=== PATIENT | male | born 1945 | race Caucasian/White ===

== ENCOUNTER 2023-10-08 12:12 | Outpatient (CLI) | payer MEDICARE, BC, SELFPAY ==
--- OUTSIDE RECORDS SUMMARY | 2023-10-08 12:22 | XMS_ITS | Encounter Summary ---
Author Name [place] Address [address] [place] [address] Care Team Providers Care Shoe Designer Name Role Phone JI DUMONT Primary Care Provider Unavailabl e Insurance Providers: All historical and current Section Date Range: From patient's date of to the date document was created. This section includes the names of all active insurance providers for the patient. Insurance Provider Type of Coverage Plan Name Start of Policy Coverage End of Policy Coverage Group Number Member ID Insurance Provider's Telephone Number Policy Ochoa's Name Patient's Relationship to Policy Ochoa [facility] ([facility]) MEDICARE ADVANTAGE [facility] ([facility]) Mar 12, 2015 [id number] BARRY GONZALEZ [facility] ([facility]) MEDICARE ADVANTAGE [facility] Mar 12, 2015 [id number] [phone] BARRY GONZALEZ PATIENT [facility] ([facility]) MEDICARE ADVANTAGE [facility] ([facility]) Mar 12, 2015 [id number] [phone] JUSTYNAANGELABARRY PATIENT BLUE CROSS [facility] RETIREE PLATI NUM BLUE COMPL E Mar 12, 2016 [id number] LISABARRY PATIENT [facility] ([facility]) MEDICARE ADVANTAGE [facility] (WNR) Mar 12, 2015 [id number] BARRY GONZALEZ PATIENT MEDICARE (WNR) MEDICARE (M) PART A Mar 12, 2000 PART A [id number] BARRY GONZALEZ PATIENT Selected Encounter This section includes the information on record at [place] for the Encounter. Date/Time Encounter Type Encounter Description Reason Provider Source Apr 13, 2023 12:15 PM Outpatient Encounter ADMIN PAT ACTIVTIES (MASNONCT) MARIANGEL ARNDT IHLizzy Encounter Template Text not used by [place] Plan of Treatment: Future Appointments (+ 6 months) and Future Tests (+/- 45 days) The Plan of Treatment section includes future care activities for the patient [facility] [place] [facility] This section includes future appointments and future orders which are active, pending or scheduled. Future Appointments This section includes appointments that were scheduled to occur 6 months from the date of the Encounter, up to a maximum of 20 appointments. The data comes from all [place] treatment facilities. Appointment Date/Time Appointment Type Appointme nt Facility Name May 07, 2023 09:00 AM AMBULATORY - MEDICINE [facility] May 07, 2023 12:00 PM [facility] Jun 21, 2023 10:00 AM AMBULATORY - NONE [facility] Aug 20, 2023 09:30 AM AMBULATORY - MEDICINE [facility] Aug 21, 2023 11:00 AM AMBULATORY - NONE [facility] Aug 27, 2023 10:00 AM AMBULATORY - NONE [facility] Aug 27, 2023 11:00 AM AMBULATORY - REHAB MEDICIN E [facility] Aug 28, 2023 02:10 PM AMBULATORY - NONE [facility] Social History: Smoking Status (Most current) and Tobacco Use (All prior to encounter date) This section includes the most current, and the historical, smoking and tobacco- related health factors from the [place] facility where the Encounter took place. Current Smoking Status This section includes the most current smoking, or tobacco-related health factor, from the [place] facility where the Encounter took place. Date/Time Current Smoking Status Victor Hugo dean Jan 17, 2023 10:45 AM VA-TOBACCO FORMER USER [facility] Tobacco Use History This section includes a history of the smoking, or tobacco-related health factors, that were collected on or before the date of the Encounter. The data comes from the [place] facility where the Encounter took place. Date/Time Smoking Status/Tobacco Use Comment F acility Jan 17, 2023 10:45 AM VA-TOBACCO QUIT 15 YRS OR MORE [facility] Feb 01, 2022 10:15 AM VA-TOBACCO FORMER USER [facility] Feb 01, 2022 10:15 AM VA-TOBACCO QUIT 15 YRS OR MORE [facility] Sep 28, 2020 03:20 PM VA-TOBACCO FORMER USER [facility] Sep 28, 2020 03:20 PM VA-TOBACCO QUIT 15 YRS OR MORE [facility] Dec 25, 2019 10:30 AM VA-TOBACCO FORMER USER [facility] Dec 25, 2019 10:30 AM VA-TOBACCO QUIT 15 YRS OR MORE [facility] Feb 21, 2018 11:12 AM VA-TOBACCO FORMER USER [facility] Feb 21, 2018 11:12 AM VA-TOBACCO QUIT 15 YRS OR MORE [facility] August 08, 2017 11:28 AM FORMER TOBACCO USER 7Y OR GREATE R [facility] Aug 22, 2016 07:47 AM FORMER TOBACCO USER 7Y OR GREATE R [facility] Aug 23, 2015 09:50 AM FORMER TOBACCO USER 7Y OR GREATE R [facility] Aug 13, 2014 08:34 AM LIFETIME NON-TOBACCO USER [facility] Aug 11, 2013 07:48 AM LIFETIME NON-TOBACCO USER [facility] Advance Directives: All historical and current Section Date Range: From patient's date of to the date document was created. This section includes ALL of a patient's completed or amended [place] Advance and Rescinded Directives. The entries below indicate that a directive exists for the patient, but an actual copy is not included with this document. The data comes from all [facility]. Date Advance Directives Provider Source Aug 13, 2014 ADVANCE DIRECTIVE VANDANA MAURICE [facility] Aug 13, 2014 ADVANCE DIRECTIVE DISCUSSION VANDANA MAURICE [facility] May 06, 2007 ADVANCE DIRECTIVE MAYITO PIERRE [facility] Encounter Notes: All associated encounter notes This section contains the clinical notes associated to the Encounter. Date/Time Encounter Note(s) Provider Source Apr 13, 2023 12:15 PM KINDER TEACHER REFER RAL NOTE: LOCAL TITLE: TRAVELING COORDINATOR NOTE STANDARD TITLE: KINDER TEACHER REFERRAL NOTE DATE OF NOTE: APR 13, 2023@12:15 ENTRY DATE: APR 13, 2023@12:15:32 AUTHOR: MARIANGEL ARNDT EXP COSIGNER: URGENCY: STATUS: COMPLETED Traveling Vet consult activity for: incoming/outgoing consult care coordination, communication &/or chart review. /valarie/ SERGE GARCIA TRAVELING COORDINATOR Signed: 04/13/2023 12:15 MARIANGEL ARNDT [facility]
--- OUTSIDE RECORDS SUMMARY | 2023-10-08 12:22 | XMS_ITS | Encounter Summary ---
Author Name [place] Address [address] [place] [address] Care Team Providers Care Automotive Leasing Sales Representative Name Role Phone JI DUMONT Primary Care [...] Ochoa's Name Patient's Relationship to Policy Ochoa [facility] (R) MEDICARE [facility] ([facility]) Mar 12, 2015 [id number] [phone] BARRY GONZALEZ [facility] ([facility]) MEDICARE ADVANTAGE [facility] Mar 12, 2015 [id number] [phone] BARRY GONZALEZ [facility] (WNR) MEDICARE ADVANTAGE [facility] (WNR) Mar 12, 2015 [id number] [phone] JUSTYNAPAMELABARRY PATEL PATIENT [place] RETIREE PLATI NUM BLUE COMPL E Mar 12, 2016 [id number] LISABARRY BLUE SHIELD [facility] ([facility]) MEDICARE ADVANTAGE [facility] ([facility]) Mar 12, 2015 [id number] BARRY GONZALEZ PATIENT MEDICARE (WNR) MEDICARE (M) PART A Mar 12, 2000 PART A [id number] BARRY GONZALEZ PATIENT Selected Encounter This section includes the information on record at [place] for the Encounter. Date/Time Encounter Type Encounter Description Reason Pro vider Source Jan 25, 2023 12:26 PM Outpatient Encounter COMMUNITY CARE CONSULT IHE Encounter Template Text not used by [place] Plan of Treatment: Future Appointments (+ 6 months) and Future Tests (+/- 45 days) The Plan of Treatment section includes future care activities for the patient [facility] [place] [facility] This section includes future appointments and future orders which are active, pending or scheduled. Future Appointments This section includes appointments that were scheduled to occur 6 months from the date of the Encounter, up to a maximum of 20 appointments. The data comes from all [facility]. Appointment Date/Time Appointment Type Appointme nt Facility Name May 07, 2023 09:00 AM AMBULATORY - [facility]ICINE [facility] May 07, 2023 12:00 PM [facility] Jun 21, 2023 10:00 AM AMBULATORY - NONE [place] [facility] Active, Pending, and Scheduled Orders This section includes a listing of several types of active, pending, and scheduled orders, including clinic medications orders, diagnostic test orders, procedure orders and consult orders; where the start date of the order is 45 days before the date of the Encounter or 45 days after the date of theEncounter. The data comes from all [facility]. Test Date/Time Test Type Test Details Facility Name Feb 01, 2023 12:00 AM Laboratory - Chemi stry Order BASIC METABOLIC PANEL+MG PLASMA [facility] Feb 01, 2023 12:00 AM Laboratory - Chemi stry Order HEMOGLOBIN A1C BLOOD [facility] Feb 01, 2023 12:00 AM Laboratory - Chemi stry Order LIPID PANEL,NON-FASTING PLASMA [facility] Feb 01, 2023 12:00 AM Laboratory - Chemi stry Order CBC BLOOD [facility] Feb 01, 2023 12:00 AM Laboratory - Chemi stry Order BASIC METABOLIC PANEL+MG PLASMA [facility] Feb 01, 2023 12:00 AM Laboratory - Chemi stry Order AST/SGOT PLASMA SP ONCE [facility] Feb 01, 2023 12:00 AM Laboratory - Chemi stry Order ALT/SGPT PLASMA SP ONCE [facility] Feb 01, 2023 12:00 AM Laboratory - Chemi stry Order HEMOGLOBIN A1C BLOOD SP [facility] Feb 22, 2023 12:51 PM Consult Order COMMUNITY CARE-DENTAL GEN SERV Cons Library Consultant's Choice [facility] Lab Results: +/- 30 days of the encounter This section includes the Chemistry and Hematology Lab Results on record with [place] for the patient. Radiology Reports and Pathology Reports are provided separately, in subsequent sections. Lab Results This section contains the Chemistry/Hematology Results that were resulted 30 days before or 30 daysafter the date of the Encounter. Date/Time Source Result Type Result - Unit Interpretation Reference Range Comment Jan 17, 2023 09:35 AM [facility] HEMOGLOBIN A1C Specimen Type: BLOOD Comment: Values obtained from A1C measurements can vary. For typical A1C assays, a reported value of 7.0 could actually be between 6.7 and 7.3 if measured by a reference method. A reported value of 9.0 could actually be between 8.7 and 9.3. Ref: http://www.ngsp .org/CAPdata.as p Ordering Provider: JI DUMONT Report Released Date/Time: July 13, 2022 12:08 PM Reporting Lab: [facility] [id number] Performing Lab: [facility] [id number] HEMOGLOBIN A1C 6.7 H 4.0-6.0 Jan 17, 2023 09:35 AM [facility] PSA Specimen Type: SERUM No comment entered. Ordering Provider: JI DUMONT Report Released Date/Time: Jan 03, 2023 11:09 AM Reporting Lab: [facility] [id number] Performing Lab: [facility] [id number] PSA 7.27 ng/mL H <4.00 Jan 17, 2023 09:35 AM [facility] BASIC METABOLIC PANEL+MG Specimen Type: PLASMA Comment: Elevated triglyceride result from a non-fasting specimen should be interpreted with caution. A fasting panel is recommended for accurate triglycerides when trigs are >200 from a non-fasting specimen. Ordering Provider: JI DUMONT Report Released Date/Time: July 13, 2022 12:08 PM Reporting Lab: [facility] [phone] Performing Lab: [facility] [id number] CREATININE 1.2 mg/dL 0.7-1.2 UREA NITROGEN 24 mg/dL 8-26 GLUCOSE 276 mg/dL H 70-100 SODIUM 141 mmol/L 136-145 POTASSIUM 4.7 mmol/L 3.5-5.1 CHLORIDE 106 mmol/L 98-107 CO2 25 mmol/L 22-29 CALCIUM 9.4 mg/dL 8.4-10.2 MAGNESIUM 1.7 mg/dL 1.6-2.6 ANION GAP 10 mmol/L 5-15 .CREAT EGFR(CKD-EPI) 62 >60 Jan 17, 2023 09:35 AM [facility] LIPID PANEL,NON-FASTING Specimen Type: PLASMA Comment: Elevated triglyceride result from a non-fasting specimen should be interpreted with caution. A fasting panel is recommended for accurate triglycerides when trigs are >200 from a non-fasting specimen. Ordering Provider: JI DUMONT Report Released Date/Time: July 13, 2022 12:08 PM Reporting Lab: [facility] [id number] Performing Lab: [facility] [phone] CHOLESTEROL 133 mg/dL <199 .HDL 34 mg/dL L >40 LDL CALCULATION 57 mg/dL <99 VLDL CALCULATION 42 mg/dL H <29 NON HDL CHOLESTEROL 99 mg/dL <129 TRIG(NON FASTING) 210 mg/dL H <149 Social History: Smoking Status (Most current) and Tobacco Use (All prior to encounter date) This section includes the most current, and the historical, smoking and tobacco- related health factors from the [place] facility where the Encounter took place. Current Smoking Status This section includes the most current smoking, or tobacco-related health factor, from the [place] facility where the Encounter took place. Date/Time Current Smoking Status Comment Nadine ity Jan 17, 2023 10:45 AM VA-TOBACCO FORMER USER [facility] Tobacco Use History This section includes a history of the smoking, or tobacco-related health factors, that were collected on or before the date of the Encounter. The data comes from the [place] facility where the Encounter took place. Date/Time Smoking Status/Tobacco Use Comment F acility Jan 17, 2023 10:45 AM VA-TOBACCO QUIT 15 YRS OR MORE [facility] Feb 01, 2022 10:15 AM VA-TOBACCO FORMER USER [facility] Feb 01, 2022 10:15 AM VA-TOBACCO QUIT 15 YRS OR MORE [facility] Sep 28, 2020 03:20 PM VA-TOBACCO FORMER USER [facility] Sep 28, 2020 03:20 PM VA-TOBACCO QUIT 15 YRS OR MORE [facility] Dec 25, 2019 10:30 AM VA-TOBACCO FORMER USER [facility] Dec 25, 2019 10:30 AM VA-TOBACCO QUIT 15 YRS OR MORE [facility] Feb 21, 2018 11:12 AM VA-TOBACCO FORMER USER [facility] Feb 21, 2018 11:12 AM VA-TOBACCO QUIT 15 YRS OR MORE [facility] August 08, 2017 11:28 AM FORMER TOBACCO USER 7Y OR GREATE R [facility] Aug 22, 2016 07:47 AM FORMER TOBACCO USER 7Y OR GREATE R [facility] Aug 23, 2015 09:50 AM FORMER TOBACCO USER 7Y OR GREATE R [facility] Aug 13, 2014 08:34 AM LIFETIME NON-TOBACCO USER [facility] Aug 11, 2013 07:48 AM LIFETIME NON-TOBACCO USER [facility] Advance Directives: All historical and current Section Date Range: From patient's date of to the date document was created. This section includes ALL of a patient's completed or amended [place] Advance and Rescinded Directives. The entries below indicate that a directive exists for the patient, but an actual copy is not included with this document. The data comes from all [place] facilities. Date Advance Directives Provider Source Aug 13, 2014 ADVANCE DIRECTIVE VANDANA MAURICE [facility] Aug 13, 2014 ADVANCE DIRECTIVE DISCUSSION VANDANA MAURICE [facility] May 06, 2007 ADVANCE DIRECTIVE MAYTIO PIERRE [facility] Encounter Notes: All associated encounter notes This section contains the clinical notes associated to the Encounter. Date/Time Encounter Note(s) Provider Source Jan 25, 2023 03:00 PM ADDENDUM: LOCAL TITLE: Addendum STANDARD TITLE: ADDENDUM DATE OF NOTE: JAN 25, 2023@15:00:26 ENTRY DATE: JAN 25, 2023@15:00:27 AUTHOR: MYRA MARQUEZ COSIGNER: URGENCY: STATUS: COMPLETED Received the above prescription without records in [facility]. Short fill medications are not co-managed. Forwarding the pact team to reach out to to discuss medication. Defer to pact team to obtain records if needed. Prescriptions are for Neomycin 500mg tablet, take 1 tablet 2 times daily for 14 days and Rifaximin 550mg tablet, take 1 tablet, 3 times a day for 14 days. Prescriptions did come with records. These are scanned and attached to this note. /valarie/ MYRA MARQUEZ LPN [employer]-Cafe Cook Signed: 01/25/2023 15:02 Receipt Acknowledged By: 01/25/2023 15:15 /es/ SHEYLA MOHAMUD RN REGISTERED NURSE 01/26/2023 10:29 /es/ JI DUMONT MD PHYSICIAN, [facility] --- Original Document --- 01/25/23 PHARMACY NON VA CARE MEDICATIONS: The [facility] Out[facility] RECEIVED electronic prescription(s) faxed from a NON-VA Provider: Regarding Patient: LISABARRY JR Date of : Nov Regarding PRESCRIPTION(s) written on Jan for: Medication(s): Neomycin 500mg tablet Rifaximin 550mg tablet The Non-VA provider is not authorized to write prescription(s) through the [facility] pharmacy. The Prescription request has been redirected via FAX to [facility]. /valarie/ PATRICE MORALES Ornamental Metal Worker Signed: 01/25/2023 12:27 MYRA MARQUEZ [facility] Jan 25, 2023 12:26 PM PHARMACY NOTE: LOCAL TITLE: PHARMACY NON VA CARE MEDICATIONS STANDARD TITLE: PHARMACY NOTE DATE OF NOTE: JAN 25, 2023@12:26 ENTRY DATE: JAN 25, 2023@12:26:43 AUTHOR: PATRICE MORALES EXP COSIGNER: URGENCY: STATUS: COMPLETED PHARMACY NON VA CARE MEDICATIONS Has ADDENDA The [facility] Out[facility] RECEIVED electronic prescription(s) faxed from a NON-VA Provider: Regarding Patient: BARRY GONZALEZ JR Date of : Nov Regarding PRESCRIPTION(s) written on Jan for: Medication(s): Neomycin 500mg tablet Rifaximin 550mg tablet The Non-VA provider is not authorized to write prescription(s) through the [facility] pharmacy. The Prescription request has been redirected via FAX to [facility]. /valarie/ PATRICE MORALES Ornamental Metal Worker Signed: 01/25/2023 12:27 01/25/2023 ADDENDUM STATUS: COMPLETED Received the above prescription without records in [facility]. Short fill medications are not co-managed. Forwarding the pact team to reach out to to discuss medication. Defer to pact team to obtain records if needed. Prescriptions are for Neomycin 500mg tablet, take 1 tablet 2 times daily for 14 days and Rifaximin 550mg tablet, take 1 tablet, 3 times a day for 14 days. Prescriptions did come with records. These are scanned and attached to this note. /valarie/ MYRA MARQUEZ LPN [employer] Cook Signed: 01/25/2023 15:02 Receipt Acknowledged By: 01/25/2023 15:15 /es/ SHEYLA MOHAMUD RN REGISTERED NURSE 01/26/2023 10:29 /valarie/ JI DUMONT MD PHYSICIAN, [facility] 01/26/2023 ADDENDUM STATUS: COMPLETED Ordered for mailout -- rifaximin is NF so entered pharm prior auth. /valarie/ JI DUMONT MD PHYSICIAN, [facility] Signed: 01/26/2023 10:38 PATRICE MORALES [facility]
--- OUTSIDE RECORDS SUMMARY | 2023-10-08 12:22 | XMS_ITS | Encounter Summary ---
Author Name [facility] [place] [facility] [place] [facility] [facility] [place] Address [address] [place] [address] Care Team Providers Care Lien Searcher Name Role Phone JI DUMONT Primary Care [...] Ochoa's Name Patient's Relationship to Policy Ochoa [facility] [place]) MEDICARE ADVANTAGE [facility] ([facility]) Mar 12, 2015 [id number] [phone] BARRY GONZALEZ [facility] ([facility]) MEDICARE ADVANTAGE [facility] Mar 12, 2015 [id number] [phone] BARRY GONZALEZ PATIENT [facility] ([facility]) MEDICARE ADVANTAGE [facility] ([facility]) Mar 12, 2015 [id number] [phone] JUSTYNAANGELABARRY PATIENT [facility] RETIREE PLATI NUM BLUE COMPL E Mar 12, 2016 [id number] [phone] LISABARRY PATIENT [facility] ([facility]) MEDICARE ADVANTAGE [facility] (WNR) Mar 12, 2015 [id number] BARRY GONZALEZ PATIENT MEDICARE ([place]) [place] ([place]) PART A Mar 12, 2000 PART A [id number] BARRY GONZALEZ PATIENT Selected Encounter This section includes the information on record at [place] for the Encounter. Date/Time Encounter Type Encounter Description Reason Provider Source Apr 17, 2023 09:12 AM Outpatient Encounter ADMIN PAT ACTIVTIES (MASNONCT) MARIANGEL ARNDT IHLizzy Encounter Template Text not used by [place] Plan of Treatment: Future Appointments (+ 6 months) and Future Tests (+/- 45 days) The Plan of Treatment section includes future care activities [facility] the [facility] [place] [facility] This section includes future appointments and future orders which are active, pending or scheduled. Future Appointments This section includes appointments that were scheduled to occur 6 months from the date of the Encounter, up to a maximum of 20 appointments. The data comes from all [place] treatment facilities. Appointment Date/Time Appointment Type Appointme nt Facility Name May 07, 2023 09:00 AM AMBULATORY - MEDICINE [facility] May 07, 2023 12:00 PM AMBULATORY - SURGERY [facility] Jun 21, 2023 10:00 AM AMBULATORY - NONE [facility] Aug 20, 2023 09:30 AM AMBULATORY - MEDICINE [facility] Aug 21, 2023 11:00 AM AMBULATORY - NONE [facility] Aug 27, 2023 10:00 AM AMBULATORY - NONE [facility] Aug 27, 2023 11:00 AM AMBULATORY - REHAB MEDICIN E [facility] Aug 28, 2023 02:10 PM AMBULATORY - NONE [facility] Social History: Smoking Status (Most current) and Tobacco Use (All prior to encounter date) This section includes the most current, and the historical, smoking and tobacco- related health factors from the [place] facility where the Encounter took place. Current Smoking Status This section includes the most current smoking, or tobacco-related health factor, from the [place] facility where the Encounter took place. Date/Time Current Smoking Status Victor Hugo dean Jan 17, 2023 10:45 AM VA-TOBACCO FORMER USER [facility] Tobacco Use History This section includes a history of the smoking, or tobacco-related health factors, that were collected on or before the date of the Encounter. The data comes from the [place] facility where the Encounter took place. Date/Time Smoking Status/Tobacco Use Comment F acility Jan 17, 2023 10:45 AM VA-TOBACCO QUIT 15 YRS OR MORE [facility] Feb 01, 2022 10:15 AM VA-TOBACCO FORMER USER [facility] Feb 01, 2022 10:15 AM VA-TOBACCO QUIT 15 YRS OR MORE [facility] Sep 28, 2020 03:20 PM VA-TOBACCO FORMER USER [facility] Sep 28, 2020 03:20 PM VA-TOBACCO QUIT 15 YRS OR MORE [facility] Dec 25, 2019 10:30 AM VA-TOBACCO FORMER USER [facility] Dec 25, 2019 10:30 AM VA-TOBACCO QUIT 15 YRS OR MORE [facility] Feb 21, 2018 11:12 AM VA-TOBACCO FORMER USER [facility] Feb 21, 2018 11:12 AM VA-TOBACCO QUIT 15 YRS OR MORE [facility] August 08, 2017 11:28 AM FORMER TOBACCO USER 7Y OR GREATE R [facility] Aug 22, 2016 07:47 AM FORMER TOBACCO USER 7Y OR GREATE R [facility] Aug 23, 2015 09:50 AM FORMER TOBACCO USER 7Y OR GREATE R [facility] Aug 13, 2014 08:34 AM LIFETIME NON-TOBACCO USER [facility] Aug 11, 2013 07:48 AM LIFETIME NON-TOBACCO USER [facility] Advance Directives: All historical and current Section Date Range: From patient's date of to the date document was created. This section includes ALL of a patient's completed or amended [place] Advance and Rescinded Directives. The entries below indicate that a directive exists for the patient, but an actual copy is not included with this document. The data comes from all [facility]. Date Advance Directives Provider Source Aug 13, 2014 ADVANCE DIRECTIVE VANDANA MAURICE [facility] Aug 13, 2014 ADVANCE DIRECTIVE DISCUSSION VANDANA MAURICE [facility] May 06, 2007 ADVANCE DIRECTIVE MAYITO PIERRE [facility] Encounter Notes: All associated encounter notes This section contains the clinical notes associated to the Encounter. Date/Time Encounter Note(s) Provider Source Apr 17, 2023 09:12 AM CRYSTALIZER TENDER REFER RAL NOTE: LOCAL TITLE: TRAVELING COORDINATOR NOTE STANDARD TITLE: CRYSTALIZER TENDER REFERRAL NOTE DATE OF NOTE: APR 17, 2023@09:12 ENTRY DATE: APR 17, 2023@09:12:44 AUTHOR: MARIANGEL ARNDT EXP COSIGNER: URGENCY: STATUS: COMPLETED Traveling Vet consult activity for: incoming/outgoing consult care coordination, communication &/or chart review. /valarie/ SERGE GARCIA TRAVELING COORDINATOR Signed: 04/17/2023 09:12 MARIANGEL ARNDT [facility]
--- OUTSIDE RECORDS SUMMARY | 2023-10-08 12:22 | XMS_ITS | Continuity of Care Document ---
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 It does not include entries that were removed or entered in error. Problem Status Onset Date Problem Type Date of Resolution Comments Source Exposure to potentially hazardous substance ([facility] [id number]) Active 05/17/19 24 Condition May 17, 2023 Entered By: VETO DEL VALLE [facility]: [facility] [place] Documentation Initiative [facility] Adenomatous polyp of colon Active Condition Jan 17, 2023 Entered By: JI DUMONT Comment: 4 mm TA in transverse colon [facility] 02/17/2020; repeat due 02/2025 [facility] Allergic Rhinitis ([facility] [id number]) Active Condition 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 2026 [facility] Benign essential hypertension (SNOMED CT 2990003) Active Condition [facility] CAD - Coronary Artery Disease (SCT 95590321) Active Condition Jan 16, 2023 Entered By: JI DUMONT Comment: s/p KYMBERLY to LCX 2004, LAD 2012Nov 2022 Entered By: JI DUMONT Comment: Follows at [facility] cardiologyNov 2022 Entered By: JI DUMONT Comment: ezetimibe 10 mg daily and niacin due to elevated CK w/ statins [facility] Cervical spinal stenosis Active Condition Jan 16, 2023 Entered By: JI DUMONT Comment: Has had neurosurgery eval suggesting surgy but this was not pursued by the patient [facility] CKD stage 3 (SNOMED CT 327281194) Active Condition [facility] ([facility]) Diabetes Mellitus Type 2 (SCT 98027048) Active Condition [facility] Diabetic neuropathy Active Condition [facility] Dyspnea Active Condition Jan 16 Entered By: JI DUMONT Comment: has been referred to pulmonary at [facility], PFT 12/2021 showed reduced diffusing capacity and normal spirometry [facility] H/O: pulmonary embolus Active Condition Jan 16, 2023 Entered By: JI DUMONT Comment: on rivaroxaban 20 mg nightlyJan 16, 2023 Entered By: JI DUMONT Comment: unprovoked 2012 [facility] Hyperlipidemia (SNOMED CT 70681988) Active Condition [facility] Hypomagnesemia Active Condition [facility] Irritable bowel syndrome Active Condition Jan 17, 2023 Entered By: JI DUMONT Comment: Multiple EGDs for [facility] w/o cause for chronic abdominal pain (Celiacs)Jan 17, 2023 Entered By: JI DUMONT Comment: H. pylori negative via stool Ag testing [facility] 01/2023Nov 2022 Entered By: JI DUMONT Comment: CT a/p 2022 without explanationNov 2022 Entered By: JI DUMONT Comment: Abdominal pain imrpoves w/ defecation, suspect IBSNov 2022 Entered By: JI DUMONT Comment: Trial Psyllium and referral to nutrition for FODMAP 01/2023Feb 2023 Entered By: JI DUMONT Comment: SIBO Dx [facility] 2022, Rx'ed rifaximen [facility] Long-term current use of anticoagulant (SNOMED CT 788585179) Active Condition [facility] Lumbar spinal stenosis Active Condition Jan 16, 2023 Entered By: JI DUMONT Comment: s/p whizotomy L3-S1 c/b bilateral foot dropNov 2022 Entered By: JI DUMONT Comment: Uses AFOs, which he obtained from the [facility] 2022 Entered By: JI DUMONT Comment: Follows at [facility] where he has had L4-S1 branch blocks 03/2018, RFA L4-S1 05/2018, as well as trigger point injections 04/2021 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 Prostate Cancer (SCT 341954444) Active Condition May 04, 2023 Entered By: JI DUMONT Comment: Dx 2023, [place] 4+3Feb 2023 Entered By: JI DUMONT Comment: underwent TURP 04/20/2023 for obstructive voiding symptoms [facility] Restless Legs Syndrome (SCT 90581804) Active Condition [facility] Small bowel bacterial overgrowth syndrome Active Condition May 04, 2023 Entered By: JI DUMONT Comment: Dx [facility] 2022, on rifaximen [facility] Venous insufficiency of leg Active Condition Jan 16, 2023 Entered By: JI DUMONT Comment: Uses compression stockings [facility] Ventricular premature complex Active Condition Jan 16 Entered By: JI DUMONT Comment: Symptomatic, follows w/ [facility] cardiology, on BB [facility] Vertigo Active Condition Jan 16 Entered By: JI DUMONT Comment: s/p [facility] PT 08/2022 [facility] Diagnosis: ICD-10-CM E11.9 Type 2 diabetes mellitus without complications Active Diagnosis [facility] Diagnosis: ICD-10-CM C61 Malignant neoplasm of prostate Active Diagnosis [facility] Diagnosis: ICD-10-CM A04.9 Bacterial intestinal infection, unspecified Active Diagnosis [facility] Diagnosis: ICD-10-CM K58.9 Irritable bowel syndrome without diarrhea Active Diagnosis [facility] Diagnosis: ICD-10-CM H81.12 Benign paroxysmal vertigo, left ear [facility] Diagnosis: ICD-10-CM H81.399 Other peripheral vertigo, unspecified ear Active Diagnosis [facility] Diagnosis: ICD-10-CM Z13.6 Encounter for screening for cardiovascular disorders Active Diagnosis [facility] Diagnosis: ICD-10-CM M47.892 Other spondylosis, cervical region Active Diagnosis [facility] Diagnosis: ICD-10-CM Z71.9 Counseling, unspecified Active Diagnosis [facility] Diagnosis: ICD-10-CM Z01.20 Encounter for dental exam and cleaning w/o abnormal findings Active Diagnosis [facility] Diagnosis: ICD-10-CM Z79.01 long-term (current) use of anticoagulants Active Diagnosis [facility] Medications Combined list of outpatient medications from Department of Defense and Veterans Affairs facilities.Medications provided include 1) outpatient medications from the last 15 months, and 2) patient-reported medications. Medication Details Route Status Patient Instructions Prescription Expires Prescription Number Last Dispense Date Ordering Provider Order Date Order Qty Source ACETAMINOPH EN 500MG TAB ACETAMIN OPHEN 500MG TAB Active TAKE TWO TABLETS BY MOUTH EVERY 8 HOURS NEEDED FOR PAIN -NOT TO EXCEED 4000MG IN 24 HOURS FROM ALL SOURCES Jan 17, 2023 200 Jan 18, 2024 [id number] Oct 09, 2023 JI DUMONT [facility] ORAL ACTIVE 01/18/2024 [id number] JI DUMONT [address] [facility] ACETAMINOPH EN 500MG TAB ACETAMIN OPHEN 500MG TAB Disconti nued TAKE TWO TABLETS BY MOUTH EVERY 8 HOURS NEEDED FOR PAIN -NOT TO EXCEED 4000MG IN 24 HOURS FROM ALL SOURCES Apr 28, 2022 200 Apr 29, 2023 [id number] Jan 04, 2023 JI DUMONT [facility] ORAL DISCONT INUED 04/29/2023 [id number] JI DUMONT [address] [facility] ALBUTEROL 90MCG/ACTUA T (CFC-F) INHL,ORAL,8 .5GM DOSE COUNTER ALBUTERO L 90MCG/AC TUAT (CFC-F) INHL,ORA L,8.5GM DOSE COUNTER Active INHALE 2 PUFFS BY INHALATI ON FOUR TIMES A DAY FOR SHORTNES S OF BREATH *SHAKE WELL* (FOR IMMEDIAT E RELIEF) Jun 22, 2023 2 Jun 22, 2024 [id number] Sep 14, 2023 JI DUMONT [facility] RESPIR ATORY (INHAL ATION) ACTIVE 06/22/2024 [id number] JI DUMONT [address] [facility] ALBUTEROL 90MCG/ACTUA T (CFC-F) INHL,ORAL,8 .5GM DOSE COUNTER ALBUTERO L 90MCG/AC TUAT (CFC-F) INHL,ORA L,8.5GM DOSE COUNTER Disconti nued INHALE 2 PUFFS BY INHALATI ON FOUR TIMES A DAY FOR SHORTNES S OF BREATH *SHAKE WELL* (FOR IMMEDIAT E RELIEF) Jan 17, 2023 2 Jan 18, 2024 [id number] A Jun 11, 2023 [facility] RESPIR ATORY (INHAL ATION) DISCONT INUED 01/18/2024 [id number] JI DUMONT 2022 2 [facility] ALBUTEROL 90MCG/ACTUA T (CFC-F) INHL,ORAL,8 .5GM DOSE COUNTER ALBUTERO L 90MCG/AC TUAT (CFC-F) INHL,ORA L,8.5GM DOSE COUNTER Disconti nued INHALE 2 PUFFS BY INHALATI ON FOUR TIMES A DAY FOR SHORTNES S OF BREATH *SHAKE WELL* (FOR IMMEDIAT E RELIEF) July 24, 2022 2 July 25, 2023 [id number] Dec 12, 2022 [facility] RESPIR ATORY (INHAL ATION) DISCONT INUED 07/25/2023 [id number] JI DUMONT 2022 2 [facility] CEFUROXIME AXETIL 500MG TAB CEFUROXI ME AXETIL 500MG TAB TAKE ONE TABLET BY MOUTH TWICE A DAY , TAKE WITH FOOD UTI May 08, 2023 14 Jun 07, 2023 [id number] May 08, 2023 [facility] 06/07/2023 [id number] JI DUMONT 2023 14 [facility] CITALOPRAM HYDROBROMID E 20MG TAB CITALOPR AM HYDROBRO MIDE 20MG TAB Active TAKE ONE TABLET BY MOUTH EVERY DAY FOR DEPRESSI ON (NOTE NEW REGIMEN) FOR DEPRESSI ON August 08, 2023 90 July 18, 2024 [id number] Oct 07, 2023 [facility] 07/18/2024 [id number] JI DUMONT 2023 90 [place] [facility] CITALOPRAM HYDROBROMID E 20MG TAB CITALOPR AM HYDROBRO MIDE 20MG TAB Disconti nued TAKE ONE-HALF TABLET BY MOUTH EVERY DAY FOR 7 DAYS, THEN TAKE ONE TABLET EVERY DAY FOR DEPRESSI ON FOR DEPRESSI ON July 18, 2023 87 July 18, 2024 [id number] July 19, 2023 [facility] DISCONT INUED 07/18/2024 [id number] JI DUMONT 2023 87 [facility] CYCLOBENZAP RINE HCL 10MG TAB CYCLOBEN ZAPRINE HCL 10MG TAB Non-VA TAKE ONE-HALF TABLET BY MOUTH THREE TIMES A DAY NEEDED FOR MUSCLE SPASM Jun 12, 2022 [facility] Document ed by: Luanne BRAVO Document ed at: [facility] ORAL ACTIVE VERO BRAVO [address] [facility] DICLOFENAC NA 1% GEL,TOP DICLOFEN AC NA 1% GEL,TOP Active APPLY 2 GRAMS TO LEFT HAND THREE TIMES A DAY NEEDED FOR ARTHRITI S PAIN -USE DOSE CARD IN BOX TO MEASURE DOSE -MAX 32 GM PER DAY Jan 17, 2023 200 Jan 18, 2024 [id number] Oct 09, 2023 [facility] ACTIVE 01/18/2024 [id number] JI DUMONT 2022 200 [place] [facility] DICLOFENAC NA 1% GEL,TOP DICLOFEN AC NA 1% GEL,TOP Disconti nued APPLY 2 GRAMS TO LEFT HAND THREE TIMES A DAY NEEDED FOR ARTHRITI S PAIN -USE DOSE CARD IN BOX TO MEASURE DOSE -MAX 32 GM PER DAY Apr 28, 2022 200 Apr 29, 2023 [id number] Jan 04, 2023 [facility] DISCONT INUED 04/29/2023 [id number] JI DUMONT 2022 200 [facility] DIPHENHYDRA MINE HCL 25MG CAP DIPHENHY DRAMINE HCL 25MG CAP Disconti nued TAKE ONE CAPSULE BY MOUTH AT BEDTIME NEEDED FOR ALLERGIE S Feb 01, 2022 90 Feb 02, 2023 [id number] July 24, 2022 [facility] DISCONT INUED 02/02/2023 [id number] JI DUMONT 2021 90 [place] [facility] DOCUSATE NA 100MG CAP DOCUSATE NA 100MG CAP Active: Susp TAKE ONE CAPSULE BY MOUTH EVERY DAY FOR CONSTIPA TION FOR CONSTIPA TION Aug 20, 2023 100 Aug 20, 2024 [id number] Nov 08, 2023 [facility] SUSPEND ED 08/20/2024 [id number] JI DUMONT 2023 100 [place] [facility] EMPAGLIFLOZ IN 25MG TAB EMPAGLIF LOZIN 25MG TAB Active TAKE ONE TABLET BY MOUTH EVERY DAY FOR DIABETES FOR DIABETES Jan 17, 2023 90 Jan 18, 2024 [id number] Oct 04, 2023 [facility] 01/18/2024 [id number] JI DUMONT 2022 90 [place] [facility] EMPAGLIFLOZ IN 25MG TAB EMPAGLIF LOZIN 25MG TAB Disconti nued TAKE ONE TABLET BY MOUTH EVERY DAY FOR DIABETES FOR DIABETES Oct 18, 2022 90 Oct 19, 2023 [id number] Jan 11, 2023 [facility] OR[facility] DISCONT INUED 10/19/2023 [id number] JI DUMONT 2022 90 [place] [facility] EMPAGLIFLOZ IN 25MG TAB EMPAGLIF LOZIN 25MG TAB Disconti nued TAKE ONE TABLET BY MOUTH EVERY DAY FOR DIABETES FOR DIABETES Apr 14, 2022 90 Apr 15, 2023 [id number] Oct 01, 2022 [facility] OR[facility] DISCONT INUED 04/15/2023 [id number] JI DUMONT 2022 90 [place] [facility] EZETIMIBE 10MG TAB EZETIMIB E 10MG TAB Active TAKE ONE TABLET BY MOUTH AT BEDTIME Jan 17, 2023 90 Jan 18, 2024 [id number] A Oct 04, 2023 [facility]IVE 01/18/2024 [id number] JI DUMONT B 2022 90 [place] [facility] EZETIMIBE 10MG TAB EZETIMIB E 10MG TAB Disconti nued TAKE ONE TABLET BY MOUTH AT BEDTIME Oct 18, 2022 90 Oct 19, 2023 [id number] Jan 28, 2023 [facility] ORAL DISCONT INUED 10/19/2023 [id number] JI DUMONT 2022 90 [place] [facility] EZETIMIBE 10MG TAB EZETIMIB E 10MG TAB Disconti nued TAKE ONE TABLET BY MOUTH AT BEDTIME Feb 01, 2022 90 Feb 02, 2023 [id number] Aug 11, 2022 [facility] ORAL DISCONT INUED 02/02/2023 [id number] JI DUMONT 2021 90 [place] [facility] FAMOTIDINE 20MG TAB FAMOTIDI NE 20MG TAB Active TAKE ONE TABLET BY MOUTH TWICE A DAY TO DECREASE STOMACH ACID Jan 17, 2023 180 Jan 18, 2024 [id number] Oct 04, 2023 [facility] OR[facility] ACTIVE 01/18/2024 [id number] JI DUMONT B 2022 180 [place] [facility] FAMOTIDINE 20MG TAB FAMOTIDI NE 20MG TAB Disconti nued TAKE ONE TABLET BY MOUTH TWICE A DAY TO DECREASE STOMACH ACID Oct 18, 2022 180 Oct 19, 2023 [id number] Dec 31, 2022 [facility] ORAL DISCONT INUED 10/19/2023 [id number] JI DUMONT 10/22/ 2023 180 [place] [facility] FAMOTIDINE 20MG TAB FAMOTIDI NE 20MG TAB Disconti nued TAKE ONE TABLET BY MOUTH TWICE A DAY TO DECREASE STOMACH ACID Jan 24, 2022 180 Jan 25, 2023 [id number] Oct 12, 2022 [facility] ORAL DISCONT INUED 01/25/2023 [id number] JI DUMONT 2021 180 [place] [facility] FEXOFENADIN E HCL 180MG TAB FEXOFENA DINE HCL 180MG TAB Active TAKE ONE TABLET BY MOUTH EVERY DAY FOR ALLERGIC RHINITIS Jan 17, 2023 90 Jan 18, 2024 [id number] Oct 04, 2023 [facility] ACTIVE 01/18/2024 [id number] JI DUMONT 2022 90 [place] [facility] FEXOFENADIN E HCL 180MG TAB FEXOFENA DINE HCL 180MG TAB Disconti nued TAKE ONE TABLET BY MOUTH EVERY DAY FOR ALLERGIC RHINITIS Oct 18, 2022 90 Oct 19, 2023 [id number] Jan 28, 2023 [facility] DISCONT INUED 10/19/2023 [id number] JI DUMONT 2022 90 [place] [facility] FEXOFENADIN E HCL 180MG TAB FEXOFENA DINE HCL 180MG TAB Disconti nued TAKE ONE TABLET BY MOUTH EVERY DAY FOR ALLERGIC RHINITIS Feb 01, 2022 90 Feb 02, 2023 [id number] Aug 11, 2022 [facility] DISCONT INUED 02/02/2023 [id number] JI DUMONT 2021 90 [place] [facility] INSULIN,GLA RGINE-YFGN 100UNIT/ML INJ PEN,3ML INSULIN, GLARGINE -YFGN 100UNIT/ ML INJ PEN,3ML Disconti nued INJECT 23 UNITS UNDER THE SKIN EVERY DAY FOR DIABETES -REFRIGE RATE -DISCARD PEN 28 DAYS AFTER FIRST USE FOR DIABETES Aug 20, 2023 5 Aug 20, 2024 [id number] Oct 04, 2023 [facility] SUBCUT ANEOUS DISCONT INUED (EDIT) 08/20/2024 [id number] JI DUMONT 2023 5 [place] [facility] INSULIN,GLA RGINE-YFGN 100UNIT/ML INJ PEN,3ML INSULIN, GLARGINE -YFGN 100UNIT/ ML INJ PEN,3ML Disconti nued INJECT 20 UNITS UNDER THE SKIN EVERY DAY FOR DIABETES -REFRIGE RATE -DISCARD PEN 28 DAYS AFTER FIRST USE FOR DIABETES July 18, 2023 5 July 18, 2024 [id number] July 18, 2023 [facility] SUBCUT ANEOUS DISCONT INUED 07/18/2024 [id number] JI DUMONT 2023 5 [place] [facility] INSULIN,GLA RGINE-YFGN 100UNIT/ML INJ PEN,3ML INSULIN, GLARGINE -YFGN 100UNIT/ ML INJ PEN,3ML Disconti nued INJECT 30 UNITS UNDER THE SKIN EVERY DAY FOR DIABETES -REFRIGE RATE -DISCARD PEN 28 DAYS AFTER FIRST USE FOR DIABETES May 07, 2023 5 May 07, 2024 [id number] Jun 17, 2023 [facility] SUBCUT ANEOUS DISCONT INUED (EDIT) 05/07/2024 [id number] JI DUMONT 2023 5 [place] [facility] INSULIN,GLA RGINE-YFGN 100UNIT/ML INJ PEN,3ML INSULIN, GLARGINE -YFGN 100UNIT/ ML INJ PEN,3ML Disconti nued INJECT 24 UNITS UNDER THE SKIN EVERY DAY FOR DIABETES -REFRIGE RATE -DISCARD PEN 28 DAYS AFTER FIRST USE FOR DIABETES Jan 17, 2023 5 Jan 18, 2024 [id number] Jan 17, 2023 [facility] SUBCUT ANEOUS DISCONT INUED BY PROVIDE R 01/18/2024 [id number] JI DUMONT 2022 5 [place] [facility] INSULIN,GLA RGINE-YFGN 100UNIT/ML INJ PEN,3ML INSULIN, GLARGINE -YFGN 100UNIT/ ML INJ PEN,3ML Disconti nued INJECT 24 UNITS UNDER THE SKIN EVERY DAY FOR DIABETES -REFRIGE RATE -DISCARD PEN 28 DAYS AFTER FIRST USE FOR DIABETES July 13, 2022 5 July 14, 2023 [id number] Feb 01, 2023 [facility] SUBCUT ANEOUS DISCONT INUED 07/14/2023 [id number] JI DUMONT 2022 5 [place] [facility] KETOCONAZOL E 2% SHAMPOO KETOCONA ZOLE 2% SHAMPOO Active SHAMPOO SCALP DIRECTED THREE TIMES A WEEK Jan 17, 2023 120 Jan 18, 2024 [id number] B August 10, 2023 [facility] ACTIVE 01/18/2024 [id number] JI DUMONT 2022 120 [place] [facility] KETOCONAZOL E 2% SHAMPOO KETOCONA ZOLE 2% SHAMPOO Disconti nued SHAMPOO SCALP DIRECTED THREE TIMES A WEEK July 13, 2022 120 July 14, 2023 [id number] Dec 01, 2022 [facility] DISCONT INUED 07/14/2023 [id number] JI DUMONT 2022 120 [place] [facility] LIDOCAINE 5% OINT,TOP LIDOCAIN E 5% OINT,TOP Active APPLY MODERATE AMOUNT TOPICALL Y THREE TIMES A DAY FOR PAIN Jun 22, 2023 35 Jun 22, 2024 [id number] July 31, 2023 [facility] TOPICA L ACTIVE 06/22/2024 [id number] JI DUMONT 2023 35 [place] [facility] LIDOCAINE 5% OINT,TOP LIDOCAIN E 5% OINT,TOP Disconti nued APPLY MODERATE AMOUNT TOPICALL Y THREE TIMES A DAY FOR PAIN Jan 17, 2023 35 Jan 18, 2024 [id number] Jun 11, 2023 JULIA,JI B [facility] TOPICA L DISCONT INUED 01/18/2024 [id number] JI DUMONT 2022 35 [place] [facility] LIDOCAINE 5% OINT,TOP LIDOCAIN E 5% OINT,TOP Disconti nued APPLY MODERATE AMOUNT TOPICALL Y THREE TIMES A DAY FOR PAIN Oct 18, 2022 35 Oct 19, 2023 [id number] Jan 20, 2023 [facility] TOPICA L DISCONT INUED 10/19/2023 [id number] SVETLANA DUMONTO Perez 2022 35 [place] [facility] LIDOCAINE 5% OINT,TOP LIDOCAIN E 5% OINT,TOP Disconti nued APPLY MODERATE AMOUNT TOPICALL Y THREE TIMES A DAY FOR PAIN July 13, 2022 35 July 14, 2023 [id number] Oct 02, 2022 [facility] TOPICA L DISCONT INUED 07/14/2023 [id number] JI DUMONT 2022 35 [place] [facility] METFORMIN HCL 1000MG TAB METFORMI N HCL 1000MG TAB Active TAKE ONE TABLET BY MOUTH TWICE A DAY TO DECREASE BLOOD SUGAR -TAKE WITH FOOD Jan 17, 2023 180 Jan 18, 2024 [id number] Oct 04, 2023 [facility] 01/18/2024 [id number] JI DUMONT 2022 180 [place] [facility] METFORMIN HCL 1000MG TAB METFORMI N HCL 1000MG TAB Disconti nued TAKE ONE TABLET BY MOUTH TWICE A DAY TO DECREASE BLOOD SUGAR -TAKE WITH FOOD Oct 18, 2022 180 Oct 19, 2023 [id number] Jan 28, 2023 [facility] DISCONT INUED 10/19/2023 [id number] JI DUMONT 2022 180 [place] [facility] METFORMIN HCL 1000MG TAB METFORMI N HCL 1000MG TAB Disconti nued TAKE ONE TABLET BY MOUTH TWICE A DAY TO DECREASE BLOOD SUGAR -TAKE WITH FOOD Feb 13, 2022 180 Feb 14, 2023 [id number] Aug 11, 2022 [facility] ORAL DISCONT INUED 02/14/2023 [id number] JI DUMONT 2021 180 [place] [facility] METOPROLOL SUCCINATE 25MG TAB,SA METOPROL OL SUCCINAT E 25MG TAB,SA Active: Susp TAKE ONE TABLET BY MOUTH TWICE A DAY FOR HEART RHYTHM (WHOLE TABLET REQUESTE D) FOR HEART RHYTHM Aug 20, 2023 180 Aug 20, 2024 [id number] Nov 08, 2023 [facility] ORAL SUSPEND ED 08/20/2024 [id number] JI DUMONT 2023 180 [facility] [facility] METOPROLOL SUCCINATE 50MG TAB,SA METOPROL OL SUCCINAT E 50MG TAB,SA Disconti nued TAKE ONE TABLET BY MOUTH TWICE A DAY FOR HEART RHYTHM (WHOLE TABLET REQUESTE D) FOR HEART RHYTHM Jan 17, 2023 180 Jan 18, 2024 [id number] Jul 06, 2023 [facility] ORAL DISCONT INUED (EDIT) 01/18/2024 [id number] JI DUMONT 2022 180 [facility] [facility] [facility] METOPROLOL SUCCINATE 50MG TAB,SA METOPROL OL SUCCINAT E 50MG TAB,SA Disconti nued TAKE ONE TABLET BY MOUTH EVERY DAY (WHOLE TABLET REQUESTE D) Oct 18, 2022 90 Oct 19, 2023 [id number] Jan 10, 2023 [facility] ORAL DISCONT INUED (EDIT) 10/19/2023 [id number] JI DUMONT 2022 90 [place] [facility] [facility] METOPROLOL SUCCINATE 50MG TAB,SA METOPROL OL SUCCINAT E 50MG TAB,SA Disconti nued TAKE ONE TABLET BY MOUTH EVERY DAY (WHOLE TABLET REQUESTE D) Jan 24, 2022 90 Jan 25, 2023 [id number] Oct 12, 2022 [facility] ORAL DISCONT INUED 01/25/2023 [id number] JI DUMONT 2021 90 [place] [facility] MOMETASONE FUROATE MONOHYDRATE 50MCG/ACTUA T SUSP,NASAL, 17GM MOMETASO NE FUROATE MONOHYDR ATE 50MCG/AC TUAT SUSP,[place] AL,17GM Active SPRAY 2 SPRAYS IN EACH NOSTRIL EVERY DAY FOR RHINITIS (RUNNY NOSE) FOR CONGESTI ON Jan 17, 2023 3 Jan 18, 2024 [id number] B Jul 06, 2023 [facility] NASAL ACTIVE 01/18/2024 [id number] JI DUMONT 2022 3 [place] [facility] MOMETASONE FUROATE MONOHYDRATE 50MCG/ACTUA T SUSP,NASAL, 17GM MOMETASO NE FUROATE MONOHYDR ATE 50MCG/AC TUAT SUSP,[place] AL,17GM Disconti nued SPRAY 2 SPRAYS IN EACH NOSTRIL EVERY DAY FOR RHINITIS (RUNNY NOSE) FOR CONGESTI ON July 13, 2022 3 July 14, 2023 [id number] Nov 16, 2022 [facility] DUM[facility] NASAL DISCONT INUED 07/14/2023 [id number] JI DUMONT 2022 3 [place] [facility] [facility] MULTIVITAMI NS CAP/TAB MULTIVIT AMINS CAP/TAB Active TAKE 1 TABLET BY MOUTH EVERY DAY Jan 17, 2023 100 Jan 18, 2024 [id number] A Oct 04, 2023 [facility] ORAL ACTIVE 01/18/2024 [id number] JI DUMONT 2022 100 [place] [facility] MULTIVITAMI NS CAP/TAB MULTIVIT AMINS CAP/TAB Disconti nued TAKE 1 TABLET BY MOUTH EVERY DAY Oct 18, 2022 100 Oct 19, 2023 [id number] Jan 28, 2023 [facility] [place] [facility] ORAL DISCONT INUED 10/19/2023 [id number] JI DUMONT B 2022 100 [place] [facility] MULTIVITAMI NS CAP/TAB MULTIVIT AMINS CAP/TAB Disconti nued TAKE 1 TABLET BY MOUTH EVERY DAY Feb 01, 2022 100 Feb 02, 2023 [id number] A Aug 11, 2022 [facility] [place] [facility] ORAL DISCONT INUED 02/02/2023 [id number] JULIASVETLANA FUNEZO B 2021 100 [place] [facility] NEOMYCIN SO4 500MG TAB NEOMYCIN SO4 500MG TAB TAKE ONE TABLET BY MOUTH TWICE A DAY SIBO SIBO Jan 26, 2023 28 Feb 25, 2023 [id number] Jan 26, 2023 [facility] [place] [facility] ORAL 02/25/2023 [id number] JI [facility]UMONT 2022 28 [place] [facility] NITROGLYCER IN 0.4MG TAB,SUBLING UAL NITROGLY CERIN 0.4MG TAB,SUBL INGUAL Active DISSOLVE ONE TABLET UNDER THE TONGUE NEEDED FOR CHEST PAIN -MAY REPEAT EVERY 5 MINUTES -NO MORE THAN 3 TOTAL. IF NO RELIEF AFTER 3 DOSES SEEK MEDICAL ATTENTIO N Jan 17, 2023 100 Jan 18, 2024 [id number] O Oct 04, 2023 [facility] [place] [facility] SUBLIN GUAL ACTIVE 01/18/2024 [id number] JULIASVETLANA FUNEZO B 2022 100 [place] [facility] NITROGLYCER IN 0.4MG TAB,SUBLING UAL NITROGLY CERIN 0.4MG TAB,SUBL INGUAL Disconti nued DISSOLVE ONE TABLET UNDER THE TONGUE NEEDED FOR CHEST PAIN -MAY REPEAT EVERY 5 MINUTES -NO MORE THAN 3 TOTAL. IF NO RELIEF AFTER 3 DOSES SEEK MEDICAL ATTENTIO N Aug 21, 2022 100 Aug 22, 2023 [id number] N Jan 20, 2023 JULIAJI FUNEZ [place] [facility] SUBLIN GUAL DISCONT INUED 08/22/2023 [id number] JULIAJI B 2022 100 [place] [facility] NITROGLYCER IN 0.4MG TAB,SUBLING UAL NITROGLY CERIN 0.4MG TAB,SUBL INGUAL Disconti nued DISSOLVE ONE TABLET UNDER THE TONGUE NEEDED FOR CHEST PAIN -MAY REPEAT EVERY 5 MINUTES -NO MORE THAN 3 TOTAL. IF NO RELIEF AFTER 3 DOSES SEEK MEDICAL ATTENTIO N Oct 13, 2021 100 Oct 14, 2022 [id number] M Sep 02, 2022 [facility]CONT [facility] 10/14/2022 [id number] [facility] PANTOPRAZOL E NA 40MG TAB,EC PANTOPRA ZOLE NA 40MG TAB,EC Active: On Hold TAKE ONE TABLET BY MOUTH TWICE A DAY TO DECREASE STOMACH ACID -TAKE ON AN EMPTY STOMACH, AT LEAST ONE-HALF HOUR BEFORE EATING FOR HEARTBUR N Jan 17, 2023 180 Jan 18, 2024 [id number] [facility] 01/18/2024 [id number] [facility] 2023 180 [facility] PANTOPRAZOL E NA 40MG TAB,EC PANTOPRA ZOLE NA 40MG TAB,EC Disconti nued TAKE ONE TABLET BY MOUTH TWICE A DAY TO DECREASE STOMACH ACID -TAKE ON AN EMPTY STOMACH, AT LEAST ONE-HALF HOUR BEFORE EATING FOR HEARTBUR N August 04, 2022 180 August 05, 2023 [id number] Jan 17, 2023 NAIDL,TO DD [facility] OR[facility] DISCONT INUED 08/05/2023 [id number] NAIDL,TOD D 2022 180 [facility] PANTOPRAZOL E NA 40MG TAB,EC PANTOPRA ZOLE NA 40MG TAB,EC Disconti nued TAKE ONE TABLET BY MOUTH TWICE A DAY TO DECREASE STOMACH ACID -TAKE ON AN EMPTY STOMACH, AT LEAST ONE-HALF HOUR BEFORE EATING Feb 01, 2022 180 Feb 02, 2023 [id number] July 24, 2022 [facility] DISCONT INUED (EDIT) 02/02/2023 [id number] JI DUMONT 2021 180 [facility] POLYVINYL ALCOHOL 1.4%/POVIDO NE (PF) SOLN,OPH POLYVINY L ALCOHOL 1.4%/POV IDONE (PF) SOLN,OPH Active INSTILL 1 DROP IN BOTH EYES TWICE A DAY FOR DRY EYES July 11, 2023July 11, 2024 [id number] Sep 30, 2023 [facility] OPHTHA LMIC ACTIVE 07/11/2024 [id number] JI DUMONT 2023 30 [place] [facility] POLYVINYL ALCOHOL 1.4%/POVIDO NE (PF) SOLN,OPH POLYVINY L ALCOHOL 1.4%/POV IDONE (PF) SOLN,OPH Disconti nued INSTILL 1 DROP IN BOTH EYES TWICE A DAY FOR DRY EYES Jan 17, 2023Jan 18, 2024 [id number] A Jun 11, 2023 [facility] OPHTHA LMIC DISCONT INUED 01/18/2024 [id number] JI DUMONT 2022 30 [place] [facility] POLYVINYL ALCOHOL 1.4%/POVIDO NE (PF) SOLN,OPH POLYVINY L ALCOHOL 1.4%/POV IDONE (PF) SOLN,OPH Disconti nued INSTILL 1 DROP IN BOTH EYES TWICE A DAY FOR DRY EYES Oct 18, 2022 30 Oct 19, 2023 [id number] Jan 11, 2023 [facility] OPHTHA LMIC DISCONT INUED 10/19/2023 [id number] JI DUMONT 2022 30 [place] [facility] POLYVINYL ALCOHOL 1.4%/POVIDO NE (PF) SOLN,OPH POLYVINY L ALCOHOL 1.4%/POV IDONE (PF) SOLN,OPH Disconti nued INSTILL 1 DROP IN BOTH EYES TWICE A DAY FOR DRY EYES July 24, 2022July 25, 2023 [id number] Oct 13, 2022 [facility] OPHTHA LMIC DISCONT INUED 07/25/2023 [id number] JI DUMONT 2022 30 [place] [facility] PRAMIPEXOLE DIHYDROCHLO RIDE 0.25MG TAB PRAMIPEX OLE DIHYDROC HLORIDE 0.25MG TAB Active TAKE ONE TABLET BY MOUTH AT BEDTIME FOR RESTLESS LEGS SYNDROME 2 FOR RESTLESS LEGS SYNDROME Jan 17, 2023 30 Jan 18, 2024 [id number] Oct 04, 2023 [facility] ORAL ACTIVE 01/18/2024 [id number] JI DUMONT 2022 30 [place] [facility] PRAMIPEXOLE DIHYDROCHLO RIDE 0.25MG TAB PRAMIPEX OLE DIHYDROC HLORIDE 0.25MG TAB Disconti nued TAKE ONE TABLET BY MOUTH AT BEDTIME FOR RESTLESS LEGS SYNDROME FOR RESTLESS LEGS FOR RESTLESS LEGS SYNDROME July 13, 2022 30 July 14, 2023 [id number] Jan 27, 2023 [facility] ORAL DISCONT INUED 07/14/2023 [id number] JI DUMONT 2022 30 [place] [facility] PRAMIPEXOLE DIHYDROCHLO RIDE 0.25MG TAB PRAMIPEX OLE DIHYDROC HLORIDE 0.25MG TAB Disconti nued TAKE ONE TABLET BY MOUTH TWICE A DAY FOR RESTLESS LEGS Apr 28, 2022 60 Apr 29, 2023 [id number] July 15, 2022 [facility] ORAL DISCONT INUED (EDIT) 04/29/2023 [id number] JI DUMONT 2022 60 [place] [facility] PREGABALIN 150MG CAP,ORAL PREGABAL IN 150MG CAP,ORAL Disconti nued TAKE ONE CAPSULE BY MOUTH AT BEDTIME FOR PAIN IN ADDITION AL TO YOUR PREGABAL IN 75MG TWICE DAILY DOSE DIRECTED . FOR PAIN July 13, 2022 30 Jan 13, 2023 [id number] Dec 22, 2022 [facility] ORAL DISCONT INUED 01/13/2023 [id number] JI DUMONT 2022 30 [place] [facility] PREGABALIN 150MG CAP,ORAL PREGABAL IN 150MG CAP,ORAL Disconti nued TAKE ONE CAPSULE BY MOUTH AT BEDTIME FOR PAIN IN ADDITION AL TO YOUR PREGABAL IN 75MG TWICE DAILY DOSE DIRECTED . FOR PAIN Mar 02, 2022 30 Sep 02, 2022 [id number] July 15, 2022 JI DUMONT EDUARO DELORES [facility] ORAL DISCONT INUED 09/02/2022 [id number] JULIAJI B 2021 30 [facility] PREGABALIN 150MG CAP,ORAL PREGABAL IN 150MG CAP,ORAL TAKE ONE CAPSULE BY MOUTH AT BEDTIME FOR PAIN IN ADDITION AL TO YOUR PREGABAL IN 75MG TWICE DAILY DOSE DIRECTED . FOR PAIN Jan 17, 2023 30 July 20, 2023 [id number] B Jul 01, 2023 [facility] 07/20/2023 [id number] SVETLANA DUMONTO B 2022 30 [facility] PREGABALIN 75MG CAP,ORAL PREGABAL IN 75MG CAP,ORAL Disconti nued TAKE ONE CAPSULE BY MOUTH TWICE A DAY FOR PAIN FOR PERIPHER AL NEUROPAT HY. FOR PAIN July 13, 2022 60 Jan 13, 2023 [id number] A Dec 30, 2022 [facility] OR[facility] DISCONT INUED 01/13/2023 [id number] JULIA,JI B [address] [facility] PREGABALIN 75MG CAP,ORAL PREGABAL IN 75MG CAP,ORAL Disconti nued TAKE ONE CAPSULE BY MOUTH TWICE A DAY FOR PAIN FOR PERIPHER AL NEUROPAT HY. FOR PAIN Feb 22, 2022 60 Aug 25, 2022 [id number] July 13, 2022 [facility] ORAL DISCONT INUED 08/25/2022 [id number] JULIAJI B 2021 60 [facility] PREGABALIN 75MG CAP,ORAL PREGABAL IN 75MG CAP,ORAL TAKE ONE CAPSULE BY MOUTH TWICE A DAY FOR PAIN FOR PERIPHER AL NEUROPAT HY. FOR PAIN Jan 17, 2023 60 July 20, 2023 [id number] B Jul 01, 2023 [facility] ORAL 07/20/2023 [id number] JI DUMONT 2022 60 [place] [facility] PSYLLIUM PWDR,ORAL PSYLLIUM PWDR,ORA L Active TAKE 1 TABLESPO ONFUL BY MOUTH TWICE A DAY FOR REGULAR BOWEL MOVEMENT S MIX WITH 8 OUNCES WATER OR JUICE FOR REGULAR BOWEL MOVEMENT S Jan 17, 2023 390 Jan 18, 2024 [id number] Oct 04, 2023 [facility] ORAL ACTIVE 01/18/2024 [id number] JI DUMONT 2022 390 [facility] RIFAXIMIN 550MG TAB RIFAXIMI N 550MG TAB TAKE ONE TABLET BY MOUTH THREE TIMES A DAY TAMERA PHILIP Jan 26, 2023 42 Feb 25, 2023 [id number] Jan 26, 2023 [facility] ORAL 02/25/2023 [id number] JI DUMONT 2022 42 [facility] RIVAROXABAN 10MG TAB RIVAROXA BAN 10MG TAB Active: Susp TAKE ONE TABLET BY MOUTH EVERY EVENING TO PREVENT BLOOD CLOTS Apr 16, 2023 90 Apr 16, 2024 [id number] Nov 28, 2023 DOUGIE MIRZA [facility] ORAL SUSPEND ED 04/16/2024 [id number] Erica MIRZA 2023 90 [facility] RIVAROXABAN 10MG TAB RIVAROXA BAN 10MG TAB Disconti nued TAKE ONE TABLET BY MOUTH EVERY EVENING TO PREVENT BLOOD CLOTS Apr 28, 2022 90 Apr 29, 2023 [id number] E Jan 17, 2023 DOU[facility]IE [facility]IRZA [facility] ORAL DISCONT INUED 04/29/2023 [id number] Erica MIRZA INA 2022 90 [facility] SEMAGLUTIDE 1MG/0.75ML INJ,SOLN,PE N,3ML SEMAGLUT CAT 1MG/0.75 ML INJ,SOLN ,PEN,3ML Disconti nued INJECT 1MG UNDER THE SKIN EVERY WEEK FOR DIABETES AND WEIGHT LOSS -MULTIPL E DOSES PER PEN Jan 17, 2023Jan 18, 2024 [id number] Jun 30, 2023 JI DUMONT [facility] SUBCUT ANEOUS DISCONT INUED (EDIT) 01/18/2024 [id number] JI DUMONT 2022 1 [facility] SEMAGLUTIDE 1MG/0.75ML INJ,SOLN,PE N,3ML SEMAGLUT CAT 1MG/0.75 ML INJ,SOLN ,PEN,3ML Disconti nued INJECT 1MG UNDER THE SKIN EVERY WEEK FOR DIABETES AND WEIGHT LOSS -MULTIPL E DOSES PER PEN July 24, 2022July 25, 2023 [id number] Dec 02, 2022 JI DUMONT [facility] SUBCUT ANEOUS DISCONT INUED 07/25/2023 [id number] JI DUMONT [address] [facility] SEMAGLUTIDE 1MG/0.75ML INJ,SOLN,PE N,3ML SEMAGLUT CAT 1MG/0.75 ML INJ,SOLN ,PEN,3ML Disconti nued INJECT 1MG UNDER THE SKIN EVERY WEEK FOR DIABETES AND WEIGHT LOSS -MULTIPL E DOSES PER PEN Feb 01, 2022Feb 02, 2023 [id number] July 13, 2022 JI DUMONT [facility] SUBCUT ANEOUS DISCONT INUED 02/02/2023 [id number] JI DUMONT 2021 1 [facility] SEMAGLUTIDE 2MG/0.75ML INJ,SOLN,PE N,3ML SEMAGLUT CAT 2MG/0.75 ML INJ,SOLN ,PEN,3ML Active: Susp INJECT 2MG UNDER THE SKIN ONCE WEEKLY, ON THE SAME DAY EACH WEEK FOR DIABETES AND WEIGHT LOSS -MULTIPL E DOSES PER PEN FOR DIABETES July 18, 2023July 18, 2024 [id number] Oct 29, 2023 [place] [facility] SUBCUT ANEOUS SUSPEND ED 07/18/2024 [id number] JI DUMONT 2023 1 [place] [facility] [facility] SIMETHICONE 80MG TAB,CHEW SIMETHIC ONE 80MG TAB,CHEW Active CHEW ONE TABLET BY MOUTH FOUR TIMES A DAY FOR GAS FOR GAS Jan 17, 2023 400 Jan 18, 2024 [id number] A Oct 04, 2023 [facility] ORAL ACTIVE 01/18/2024 [id number] JI DUMONT 2022 400 [place] [facility] SIMETHICONE 80MG TAB,CHEW SIMETHIC ONE 80MG TAB,CHEW Disconti nued CHEW ONE TABLET BY MOUTH FOUR TIMES A DAY FOR GAS FOR GAS Oct 18, 2022 400 Oct 19, 2023 [id number] Dec 08, 2022 [facility] ORAL DISCONT INUED 10/19/2023 [id number] JI DUMONT 2022 400 [place] [facility] SIMETHICONE 80MG TAB,CHEW SIMETHIC ONE 80MG TAB,CHEW Disconti nued CHEW ONE TABLET BY MOUTH FOUR TIMES A DAY FOR GAS FOR GAS Mar 22, 2022 400 Mar 23, 2023 [id number] Sep 09, 2022 [facility] ORAL DISCONT INUED 03/23/2023 [id number] JI DUMONT 2022 400 [place] [facility] SODIUM CHLORIDE 1GM TAB SODIUM CHLORIDE 1GM TAB Active TAKE ONE TABLET BY MOUTH TWICE A DAY Jan 17, 2023 200 Jan 18, 2024 [id number] Oct 04, 2023 [facility] ORAL ACTIVE 01/18/2024 [id number] JI DUMONT 2022 200 [place] [facility] SODIUM CHLORIDE 1GM TAB SODIUM CHLORIDE 1GM TAB Disconti nued TAKE ONE TABLET BY MOUTH TWICE A DAY Oct 18, 2022 200 Oct 19, 2023 [id number] Jan 11, 2023 JI DUMONT [facility] ORAL DISCONT INUED 10/19/2023 [id number] JI DUMONT [address] [facility] SODIUM CHLORIDE 1GM TAB SODIUM CHLORIDE 1GM TAB Disconti nued TAKE ONE TABLET BY MOUTH TWICE A DAY Feb 01, 2022 200 Feb 02, 2023 [id number] Nov 09, 2022 JI DUMONT [facility] ORAL DISCONT INUED 02/02/2023 [id number] JI DUMONT [address] [facility] SODIUM FLUORIDE 1.1% TOOTHPASTE SODIUM FLUORIDE 1.1% TOOTHPAS TE Active BRUSH TEETH WITH A SMALL AMOUNT DIRECTED JAN Gonzalez TO DIRECTIO NS ON PACKAGE (ONCE DAILY FOR 2 MINUTES, DO NOT EAT,DRIN K OR RINSE FOR 30 MINUTES AFTERWAR DS) Aug 30, 2023 100 Aug 28, 2024 [id number] Oct 19, 2023 VIKTOR-GERARDO BOOGIE [facility] NOT APPLIC ABLE ACTIVE 08/28/2024 [id number] VIKTOR-GERARDO RUBY [address] [facility] SUCRALFATE 500MG/5ML SUSP,ORAL SUCRALFA TE 500MG/5M L SUSP,ORA L Active TAKE 10 ML (2 TEASPOON SFUL) BY MOUTH FOUR TIMES A DAY NEEDED FOR GERD (ACID REFLUX) -TAKE ON AN EMPTY STOMACH -SHAKE WELL BEFORE USE Jun 21, 2023 1260 Jun 22, 2024 [id number] B Sep 14, 2023 JI DUMONT [facility] ORAL ACTIVE 06/22/2024 [id number] JI DUMONT [address] [facility] SUCRALFATE 500MG/5ML SUSP,ORAL SUCRALFA TE 500MG/5M L SUSP,ORA L Disconti nued TAKE 10 ML (2 TEASPOON SFUL) BY MOUTH FOUR TIMES A DAY NEEDED FOR GERD (ACID REFLUX) -TAKE ON AN EMPTY STOMACH -SHAKE WELL BEFORE USE Jan 17, 2023 1260 Jan 18, 2024 [id number] Jan 17, 2023 [facility] ORAL DISCONT INUED 01/18/2024 [id number] JI DUMONT 2022 1260 [place] [facility] SUCRALFATE 500MG/5ML SUSP,ORAL SUCRALFA TE 500MG/5M L SUSP,ORA L Disconti nued TAKE 10 ML (2 TEASPOON SFUL) BY MOUTH FOUR TIMES A DAY NEEDED FOR GERD (ACID REFLUX) -TAKE ON AN EMPTY STOMACH -SHAKE WELL BEFORE USE Oct 18, 2022 420 Oct 19, 2023 [id number] Dec 10, 2022 [facility] ORAL DISCONT INUED 10/19/2023 [id number] JI DUMONT 2022 420 [place] [facility] SUCRALFATE 500MG/5ML SUSP,ORAL SUCRALFA TE 500MG/5M L SUSP,ORA L Disconti nued TAKE 10 ML (2 TEASPOON SFUL) BY MOUTH FOUR TIMES A DAY NEEDED FOR GERD (ACID REFLUX) -TAKE ON AN EMPTY STOMACH -SHAKE WELL BEFORE USE Aug 15, 2022 420 Aug 16, 2023 [id number] B Sep 26, 2022 [facility] ORAL DISCONT INUED 08/16/2023 [id number] JI DUMONT 2022 420 [place] [facility] SUCRALFATE 500MG/5ML SUSP,ORAL SUCRALFA TE 500MG/5M L SUSP,ORA L Disconti nued TAKE 10 ML (2 TEASPOON SFUL) BY MOUTH FOUR TIMES A DAY NEEDED FOR GERD (ACID REFLUX) -TAKE ON AN EMPTY STOMACH -SHAKE WELL BEFORE USE Feb 01, 2022 420 Feb 02, 2023 [id number] July 21, 2022 [facility] ORAL DISCONT INUED 02/02/2023 [id number] JI DUMONT 2021 420 [place] [facility] TAMSULOSIN HCL 0.4MG CAP TAMSULOS IN HCL 0.4MG CAP Disconti nued TAKE ONE CAPSULE BY MOUTH EVERY DAY FOR BENIGN PROSTATI C HYPERTRO PHY (BPH) Jun 22, 2023 90 Jun 22, 2024 [id number] Oct 05, 2023 [facility] ORAL DISCONT INUED BY PROVIDE R 06/22/2024 [id number] JI DUMONT 2023 90 [place] [facility] TAMSULOSIN HCL 0.4MG CAP TAMSULOS IN HCL 0.4MG CAP Disconti nued TAKE ONE CAPSULE BY MOUTH EVERY DAY FOR BENIGN PROSTATI C HYPERTRO PHY (BPH) Jan 17, 2023 90 Jan 18, 2024 [id number] Jul 06, 2023 [facility] DISCONT INUED 01/18/2024 [id number] JI DUMONT 2022 90 [place] [facility] TAMSULOSIN HCL 0.4MG CAP TAMSULOS IN HCL 0.4MG CAP Disconti nued TAKE ONE CAPSULE BY MOUTH EVERY DAY FOR BENIGN PROSTATI C HYPERTRO PHY (BPH) Oct 18, 2022 90 Oct 19, 2023 [id number] Jan 28, 2023 [facility] DISCONT INUED 10/19/2023 [id number] JI DUMONT 2022 90 [place] [facility] TAMSULOSIN HCL 0.4MG CAP TAMSULOS IN HCL 0.4MG CAP Disconti nued TAKE ONE CAPSULE BY MOUTH EVERY DAY FOR BENIGN PROSTATI C HYPERTRO PHY (BPH) Feb 01, 2022 90 Feb 02, 2023 [id number] Aug 11, 2022 [facility] ORAL DISCONT INUED 02/02/2023 [id number] JI DUMONT 2021 90 [place] [facility] TRIAMCINOLO NE ACETONIDE 0.1% CREAM,TOP TRIAMCIN OLONE ACETONID E 0.1% CREAM,TO P Active APPLY THIN LAYER TOPICALL Y TWICE A DAY AVOID FACE,VITO IN and ARMPITS *FOR EXTERNAL USE ONLY FOR ECZEMA Jun 22, 2023 80 Jun 22, 2024 [id number] August 01, 2023 JI DUMONT [facility] ACTIVE 06/22/2024 [id number] SVETLANA DUMONTO Perez [address] [facility] TRIAMCINOLO NE ACETONIDE 0.1% CREAM,TOP TRIAMCIN OLONE ACETONID E 0.1% CREAM,TO P Disconti nued APPLY THIN LAYER TOPICALL Y TWICE A DAY AVOID FACE,VITO IN and ARMPITS *FOR EXTERNAL USE ONLY FOR ECZEMA Jan 17, 2023 80 Jan 18, 2024 [id number] Jul 02, 2023 JI DUMONT [facility] DISCONT INUED 01/18/2024 [id number] JI DUMONT [address] [facility] TRIAMCINOLO NE ACETONIDE 0.1% CREAM,TOP TRIAMCIN OLONE ACETONID E 0.1% CREAM,TO P Disconti nued APPLY THIN LAYER TOPICALL Y TWICE A DAY AVOID FACE,VITO IN and ARMPITS *FOR EXTERNAL USE ONLY FOR ECZEMA Feb 01, 2022 80 Feb 02, 2023 [id number] Jan 21, 2023 JI DUMONT [facility] DISCONT INUED 02/02/2023 [id number] JI DUMONT [address] [facility] Allergies, Adverse Reactions, Alerts Combined list of allergies from Department of Defense and Veterans Affairs facilities. It does not include entries that were removed or entered in error. Substance Category Reaction Severity Reaction type Status Date Reported Comments Source GABAPENTIN Propensity to adverse reactions to drug (finding) Dizziness active 9 [facility] LISINOPRIL Propensity to adverse reactions to drug (finding) Xerostomia active 8 [facility] Immunizations Combined list of available immunizations from the Department of Defense and Veterans Affairs facilities. Immunization Series Date Given Administered By Site Reaction Lot Number CVX Code Drug Powder Press Operator Status Comments Source TDAP [address] [facility] COVID-19 (PFIZER), MRNA, LNP-S, BIVALENT BOOSTER, PF, 30 MCG/0.3 ML DOSE 1 2021 300 complet ed PFR; [id number]; 3 [facility] INFLUENZA, UNSPECIFIED FORMULATION [address] [facility] COVID-19 (PFIZER), MRNA, LNP-S, PF, 30 MCG/0.3 ML DOSE 3 2020 208 complet ed PRF; [id number]; 2 [facility] INFLUENZA, UNSPECIFIED FORMULATION [address] [facility] COVID-19 (PFIZER), MRNA, LNP-S, PF, 30 MCG/0.3 ML DOSE 2 2020 208 complet ed PFR; [id number]; 1 [facility] COVID-19 ([employer]), MRNA, LNP-S, PF, 30 MCG/0.3 ML DOSE 1 2020 208 complet ed PFR; [id number]; 1 [facility] ZOSTER RECOMBINANT [address] [facility] ZOSTER RECOMBINANT 1 [address] [facility] INFLUENZA, UNSPECIFIED FORMULATION [address] [facility] INFLUENZA, SEASONAL, INJECTABLE [address] [facility] INFLUENZA, HIGH DOSE SEASONAL 2016 135 complet ed [facility] INFLUENZA, SEASONAL, INJECTABLE [address] [facility] INFLUENZA, SEASONAL, INJECTABLE [address] [facility] INFLUENZA, SEASONAL, INJECTABLE 2014 141 complet ed [facility] PNEUMOCOCCAL CONJUGATE PCV 13 2014 133 complet ed [facility] PNEUMOCOCCAL POLYSACCHARID E PPV23 [address] [facility] INFLUENZA, UNSPECIFIED FORMULATION [address] [facility] TDAP 2012 115 complet ed [address] [place] [address] INFLUENZA, UNSPECIFIED FORMULATION 2011 88 complet ed [facility] ZOSTER LIVE 2011 121 complet ed [employer] [phone] , [id number] 2 [facility] INFLUENZA, UNSPECIFIED FORMULATION [address] [facility] INFLUENZA, UNSPECIFIED FORMULATION [address] [facility] NOVEL INFLUENZA-H1N 1-09, ALL FORMULATIONS [address] [facility] INFLUENZA, UNSPECIFIED FORMULATION [address] [facility] INFLUENZA, UNSPECIFIED FORMULATION 2007 88 complet ed [facility] INFLUENZA (HISTORICAL) 2005 88 complet ed per pt report [facility] INFLUENZA (HISTORICAL) 2004 88 complet ed Per pt reporting [facility] INFLUENZA (HISTORICAL) 2003 88 complet ed pt reports [facility] PNEUMOCOCCAL, UNSPECIFIED FORMULATION [address] [facility] INFLUENZA (HISTORICAL) 2003 88 complet ed pt reports [facility] TD(ADULT) UNSPECIFIED FORMULATION 2002 139 complet ed pt reports [facility] Results Combined list of recent chemistry, hematology and other laboratory results from Department of Defense and Veterans Affairs, ranging from 15 months to all on record, depending upon the facility. Order Name Results Value Reference Range Date Interpretation Specimen Comments Source ALT/SGPT ALANINE AMINOTRANSF ERASE [ENZYMATIC ACTIVITY/VO LUME] IN SERUM OR PLASMA 21 U/L <55 - 55 08/26 Specimen Type: PLASMA No comment entered. Ordering Provider: AB FRANCESCA DANIELSON Report Released Date/Time: Aug 13, 2023 09:15 AM Reporting Lab: [facility] [id number] Performing Lab: [facility] [id number] [facility]SGOT ASPARTATE AMINOTRANSF ERASE [ENZYMATIC ACTIVITY/VO LUME] IN SERUM OR PLASMA 21 U/L <34 - 34 08/26 Specimen Type: PLASMA No comment entered. Ordering Provider: AB FRANCESCA DANIELSON Report Released Date/Time: Aug 13, 2023 09:15 AM Reporting Lab: [facility] [id number] Performing Lab: [facility] [address] [facility] CBC LEUKOCYTES [#/VOLUME] IN BLOOD BY AUTOMATED COUNT 7.02 10*3/u L 4.0 - 11.0 08/26 Specimen Type: BLOOD No comment entered. Ordering Provider: AB FRANCESCA DANIELSON Report Released Date/Time: Aug 13, 2023 09:15 AM Reporting Lab: [facility] [address] Performing Lab: [facility] [address] [facility] CBC ERYTHROCYTE S [#/VOLUME] IN BLOOD BY AUTOMATED COUNT 4.25 10*6/u L 4.6 - 6.2 08/26 L Specimen Type: BLOOD No comment entered. Ordering Provider: AB FRANCESCA DANIELSON Report Released Date/Time: Aug 13, 2023 09:15 AM Reporting Lab: [facility] [id number] Performing Lab: [facility] [address] [facility] CBC HEMOGLOBIN [MASS/VOLUM E] IN BLOOD 13.7 g/dL 13.5 - 17.9 08/26 Specimen Type: BLOOD No comment entered. Ordering Provider: AB FRANCESCA DANIELSON Report Released Date/Time: Aug 13, 2023 09:15 AM Reporting Lab: [facility] [address] Performing Lab: [facility] [address] [facility] CBC HEMATOCRIT [VOLUME FRACTION] OF BLOOD BY AUTOMATED COUNT 39.0 41 - 54 08/26 L Specimen Type: BLOOD No comment entered. Ordering Provider: AB FRANCESCA DANIELSON Report Released Date/Time: Aug 13, 2023 09:15 AM Reporting Lab: [facility] [phone] Performing Lab: [facility] [phone] [place] [facility] CBC MCV [ENTITIC VOLUME] BY AUTOMATED COUNT 91.8 fL 80 - 100 08/26 Specimen Type: BLOOD No comment entered. Ordering Provider: AB FRANCESCA DANIELSON Report Released Date/Time: Aug 13, 2023 09:15 AM Reporting Lab: [place] [phone] Performing Lab: [facility] [phone] [place] [facility] CBC MCH [ENTITIC MASS] BY AUTOMATED COUNT 32.2 pg 27 - 33 08/26 Specimen Type: BLOOD No comment entered. Ordering Provider: AB FRANCESCA DANIELSON Report Released Date/Time: Aug 13, 2023 09:15 AM Reporting Lab: [facility] [phone] Performing Lab: [facility] [phone] [place] [facility] CBC MCHC [MASS/VOLUM E] BY AUTOMATED COUNT 35.1 g/dL 32.0 - 37.5 08/26 Specimen Type: BLOOD No comment entered. Ordering Provider: AB FRANCESCA DAINELSON Report Released Date/Time: Aug 13, 2023 09:15 AM Reporting Lab: [facility] [phone] Performing Lab: [facility] [phone] [facility] CBC PLATELETS [#/VOLUME] IN BLOOD BY AUTOMATED COUNT 207 10*3/u L 150 - 400 08/26 Specimen Type: BLOOD No comment entered. Ordering Provider: AB FRANCESCA DANIELSON Report Released Date/Time: Aug 13, 2023 09:15 AM Reporting Lab: [facility] [phone] Performing Lab: [facility] [phone] [place] [facility] CBC PLATELET MEAN VOLUME [ENTITIC VOLUME] IN BLOOD BY AUTOMATED COUNT 8.4 fL 7.4 - 10.4 08/26 Specimen Type: BLOOD No comment entered. Ordering Provider: AB FRANCESCA DANIELSON Report Released Date/Time: Aug 13, 2023 09:15 AM Reporting Lab: [facility] [phone] Performing Lab: [facility] [phone] [facility] CBC ERYTHROCYTE DISTRIBUTIO N WIDTH [RATIO] BY AUTOMATED COUNT 12.3 11.5 - 14.5 08/26 Specimen Type: BLOOD No comment entered. Ordering Provider: AB FRANCESCA DANIELSON Report Released Date/Time: Aug 13, 2023 09:15 AM Reporting Lab: [facility] [phone] Performing Lab: [facility] [phone] [place] [facility] CREATININ E(INCLUDE S EGFR) CREATININE [MASS/VOLUM E] IN SERUM OR PLASMA 1.3 mg/dL 0.7 - 1.2 08/26 H Specimen Type: PLASMA No comment entered. Ordering Provider: AB FRANCESCA DANIELSON Report Released Date/Time: Aug 13, 2023 09:15 AM Reporting Lab: [facility] [phone] Performing Lab: [facility] [phone] [place] [facility] CREATININ E(INCLUDE S EGFR) GLOMERULAR FILTRATION RATE/1.73 SQ M.PREDICTED [VOLUME RATE/AREA] IN SERUM, PLASMA OR BLOOD BY CREATININE- BASED FORMULA (CKD-EPI 2020) 56 60 08/26 L Specimen Type: PLASMA No comment entered. Ordering Provider: AB FRANCESCA DANIELSON Report Released Date/Time: Aug 13, 2023 09:15 AM Reporting Lab: [facility] [phone] Performing Lab: [facility] [phone] [facility] BASIC METABOLIC PANEL+MG CREATININE [MASS/VOLUM E] IN SERUM OR PLASMA 1.2 mg/dL 0.7 - 1.2 01/17 Specimen Type: PLASMA Comment: Elevated triglycerid e result from a non-fasting specimen should be interpreted with caution. A fasting panel is recommended for accurate triglycerid es when trigs are >200 from a non-fasting specimen. Ordering Provider: JI DUMONT Report Released Date/Time: July 13, 2022 12:08 PM Reporting Lab: [facility] [address] Performing Lab: [facility] [address] [place] [facility] BASIC METABOLIC PANEL+MG UREA NITROGEN [MASS/VOLUM E] IN SERUM OR PLASMA 24 mg/dL 8 - 26 01/17 Specimen Type: PLASMA Comment: Elevated triglycerid e result from a non-fasting specimen should be interpreted with caution. A fasting panel is recommended for accurate triglycerid es when trigs are >200 from a non-fasting specimen. Ordering Provider: JI DUMONT Report Released Date/Time: July 13, 2022 12:08 PM Reporting Lab: [facility] [address] Performing Lab: [facility] [address] [place] [facility] BASIC METABOLIC PANEL+MG GLUCOSE [MASS/VOLUM E] IN SERUM OR PLASMA 276 mg/dL 70 - 100 01/17 H Specimen Type: PLASMA Comment: Elevated triglycerid e result from a non-fasting specimen should be interpreted with caution. A fasting panel is recommended for accurate triglycerid es when trigs are >200 from a non-fasting specimen. Ordering Provider: JI DUMONT Report Released Date/Time: July 13, 2022 12:08 PM Reporting Lab: [facility] [address] Performing Lab: [facility] [address] [place] [facility] BASIC METABOLIC PANEL+MG SODIUM [MOLES/VOLU ME] IN SERUM OR PLASMA 141 mmol/L 136 - 145 01/17 Specimen Type: PLASMA Comment: Elevated triglycerid e result from a non-fasting specimen should be interpreted with caution. A fasting panel is recommended for accurate triglycerid es when trigs are >200 from a non-fasting specimen. Ordering Provider: JI DUMONT Report Released Date/Time: July 13, 2022 12:08 PM Reporting Lab: [facility] [address] Performing Lab: [facility] [address] [place] [facility] BASIC METABOLIC PANEL+MG POTASSIUM [MOLES/VOLU ME] IN SERUM OR PLASMA 4.7 mmol/L 3.5 - 5.1 01/17 Specimen Type: PLASMA Comment: Elevated triglycerid e result from a non-fasting specimen should be interpreted with caution. A fasting panel is recommended for accurate triglycerid es when trigs are >200 from a non-fasting specimen. Ordering Provider: JI DUMONT Report Released Date/Time: July 13, 2022 12:08 PM Reporting Lab: [facility] [address] Performing Lab: [facility] [address] [place] [facility] BASIC METABOLIC PANEL+MG CHLORIDE [MOLES/VOLU ME] IN SERUM OR PLASMA 106 mmol/L 98 - 107 01/17 Specimen Type: PLASMA Comment: Elevated triglycerid e result from a non-fasting specimen should be interpreted with caution. A fasting panel is recommended for accurate triglycerid es when trigs are >200 from a non-fasting specimen. Ordering Provider: JI DUMONT Report Released Date/Time: July 13, 2022 12:08 PM Reporting Lab: [facility] [address] Performing Lab: [facility] [address] [place] [facility] BASIC METABOLIC PANEL+MG CARBON DIOXIDE, TOTAL [MOLES/VOLU ME] IN SERUM OR PLASMA 25 mmol/L 22 - 29 01/17 Specimen Type: PLASMA Comment: Elevated triglycerid e result from a non-fasting specimen should be interpreted with caution. A fasting panel is recommended for accurate triglycerid es when trigs are >200 from a non-fasting specimen. Ordering Provider: JI DUMONT Report Released Date/Time: July 13, 2022 12:08 PM Reporting Lab: [facility] [address] Performing Lab: [facility] [address] [place] [facility] BASIC METABOLIC PANEL+MG CALCIUM [MASS/VOLUM E] IN SERUM OR PLASMA 9.4 mg/dL 8.4 - 10.2 01/17 Specimen Type: PLASMA Comment: Elevated triglycerid e result from a non-fasting specimen should be interpreted with caution. A fasting panel is recommended for accurate triglycerid es when trigs are >200 from a non-fasting specimen. Ordering Provider: JI DUMONT Report Released Date/Time: July 13, 2022 12:08 PM Reporting Lab: [facility] [address] Performing Lab: [facility] [address] [place] [facility] BASIC METABOLIC PANEL+MG MAGNESIUM [MASS/VOLUM E] IN SERUM OR PLASMA 1.7 mg/dL 1.6 - 2.6 01/17 Specimen Type: PLASMA Comment: Elevated triglycerid e result from a non-fasting specimen should be interpreted with caution. A fasting panel is recommended for accurate triglycerid es when trigs are >200 from a non-fasting specimen. Ordering Provider: JI DUMONT Report Released Date/Time: July 13, 2022 12:08 PM Reporting Lab: [facility] [address] Performing Lab: [facility] [address] [place] [facility] BASIC METABOLIC PANEL+MG ANION GAP IN SERUM OR PLASMA 10 mmol/L 5 - 15 01/17 Specimen Type: PLASMA Comment: Elevated triglycerid e result from a non-fasting specimen should be interpreted with caution. A fasting panel is recommended for accurate triglycerid es when trigs are >200 from a non-fasting specimen. Ordering Provider: JI DUMONT Report Released Date/Time: July 13, 2022 12:08 PM Reporting Lab: [facility] [address] Performing Lab: [facility] [address] [facility]MG GLOMERULAR FILTRATION RATE/1.73 SQ M.PREDICTED [VOLUME RATE/AREA] IN SERUM, PLASMA OR BLOOD BY CREATININE- BASED FORMULA (CKD-EPI 2020) 62 60 01/17 Specimen Type: PLASMA Comment: Elevated triglycerid e result from a non-fasting specimen should be interpreted with caution. A fasting panel is recommended for accurate triglycerid es when trigs are >200 from a non-fasting specimen. Ordering Provider: JI DUMONT Report Released Date/Time: July 13, 2022 12:08 PM Reporting Lab: [facility] [address] Performing Lab: [facility] [address] [facility] HEMOGLOBI N A1C HEMOGLOBIN A1C/HEMOGLO BIN.TOTAL IN BLOOD 6.7 4.0 - 6.0 01/17 H Specimen Type: BLOOD Comment: Values obtained from A1C measurement s can vary. For typical A1C assays, a reported value of 7.0 could actually be between 6.7 and 7.3 if measured by a reference method. A reported value of 9.0 could actually be between 8.7 and 9.3. Ref: http://www. ngsp.org/[place] Pdata.asp Ordering Provider: JI DUMONT Report Released Date/Time: July 13, 2022 12:08 PM Reporting Lab: [facility] [address] Performing Lab: [facility] [address] [place] [facility] LIPID PANEL,NON -FASTING CHOLESTEROL [MASS/VOLUM E] IN SERUM OR PLASMA 133 mg/dL <199 - 199 01/17 Specimen Type: PLASMA Comment: Elevated triglycerid e result from a non-fasting specimen should be interpreted with caution. A fasting panel is recommended for accurate triglycerid es when trigs are >200 from a non-fasting specimen. Ordering Provider: JI DUMONT Report Released Date/Time: July 13, 2022 12:08 PM Reporting Lab: [facility] [address] Performing Lab: [facility] [address] [place] [facility] LIPID PANEL,NON -FASTING CHOLESTEROL IN HDL [MASS/VOLUM E] IN SERUM OR PLASMA 34 mg/dL 40 01/17 L Specimen Type: PLASMA Comment: Elevated triglycerid e result from a non-fasting specimen should be interpreted with caution. A fasting panel is recommended for accurate triglycerid es when trigs are >200 from a non-fasting specimen. Ordering Provider: JI DUMONT Report Released Date/Time: July 13, 2022 12:08 PM Reporting Lab: [facility] [address] Performing Lab: [facility] [address] [place] [facility] LIPID PANEL,NON -FASTING CHOLESTEROL IN LDL [MASS/VOLUM E] IN SERUM OR PLASMA BY CALCULATION 57 mg/dL <99 - 99 01/17 Specimen Type: PLASMA Comment: Elevated triglycerid e result from a non-fasting specimen should be interpreted with caution. A fasting panel is recommended for accurate triglycerid es when trigs are >200 from a non-fasting specimen. Ordering Provider: JI DUMONT Report Released Date/Time: July 13, 2022 12:08 PM Reporting Lab: [facility] [address] Performing Lab: [facility] [address] [place] [facility] LIPID PANEL,NON -FASTING CHOLESTEROL IN VLDL [MASS/VOLUM E] IN SERUM OR PLASMA BY CALCULATION 42 mg/dL <29 - 29 01/17 H Specimen Type: PLASMA Comment: Elevated triglycerid e result from a non-fasting specimen should be interpreted with caution. A fasting panel is recommended for accurate triglycerid es when trigs are >200 from a non-fasting specimen. Ordering Provider: JI DUMONT Report Released Date/Time: July 13, 2022 12:08 PM Reporting Lab: [facility] [address] Performing Lab: [facility] [address] [place] [facility] LIPID PANEL,NON -FASTING CHOLESTEROL NON HDL [MASS/VOLUM E] IN SERUM OR PLASMA 99 mg/dL <129 - 129 01/17 Specimen Type: PLASMA Comment: Elevated triglycerid e result from a non-fasting specimen should be interpreted with caution. A fasting panel is recommended for accurate triglycerid es when trigs are >200 from a non-fasting specimen. Ordering Provider: JI DUMONT Report Released Date/Time: July 13, 2022 12:08 PM Reporting Lab: [facility] [address] Performing Lab: [facility] [address] [place] [facility] LIPID PANEL,NON -FASTING TRIGLYCERID E [MASS/VOLUM E] IN SERUM OR PLASMA 210 mg/dL <149 - 149 01/17 H Specimen Type: PLASMA Comment: Elevated triglycerid e result from a non-fasting specimen should be interpreted with caution. A fasting panel is recommended for accurate triglycerid es when trigs are >200 from a non-fasting specimen. Ordering Provider: JI DUMONT Report Released Date/Time: July 13, 2022 12:08 PM Reporting Lab: [facility] [address] Performing Lab: [facility] [address] [place] [facility] PSA PROSTATE SPECIFIC AG [MASS/VOLUM E] IN SERUM OR PLASMA 7.27 ng/mL <4.00 - 4.00 01/17 H Specimen Type: SERUM No comment entered. Ordering Provider: JI DUMONT Report Released Date/Time: Jan 03, 2023 11:09 AM Reporting Lab: [facility] [address] Performing Lab: [facility] [address] [place] [facility] CBC LEUKOCYTES [#/VOLUME] IN BLOOD BY AUTOMATED COUNT 7.18 10*3/u L 4.0 - 11.0 07/13 Specimen Type: BLOOD No comment entered. Ordering Provider: JI DUMONT Report Released Date/Time: May 19, 2022 10:23 AM Reporting Lab: [facility] [address] Performing Lab: [facility] [address] [place] [facility] CBC ERYTHROCYTE S [#/VOLUME] IN BLOOD BY AUTOMATED COUNT 4.80 10*6/u L 4.6 - 6.2 07/13 Specimen Type: BLOOD No comment entered. Ordering Provider: JI DUMONT Report Released Date/Time: May 19, 2022 10:23 AM Reporting Lab: [facility] [address] Performing Lab: [facility] [address] [place] [facility] CBC HEMOGLOBIN [MASS/VOLUM E] IN BLOOD 15.4 g/dL 13.5 - 17.9 07/13 Specimen Type: BLOOD No comment entered. Ordering Provider: JI DUMONT Report Released Date/Time: May 19, 2022 10:23 AM Reporting Lab: [facility] [address] Performing Lab: [facility] [address] [place] [facility] CBC HEMATOCRIT [VOLUME FRACTION] OF BLOOD BY AUTOMATED COUNT 44.3 41 - 54 07/13 Specimen Type: BLOOD No comment entered. Ordering Provider: JI DUMONT Report Released Date/Time: May 19, 2022 10:23 AM Reporting Lab: [facility] [address] Performing Lab: [facility] [address] [place] [facility] CBC MCV [ENTITIC VOLUME] BY AUTOMATED COUNT 92.3 fL 80 - 100 07/13 Specimen Type: BLOOD No comment entered. Ordering Provider: JI DUMONT Report Released Date/Time: May 19, 2022 10:23 AM Reporting Lab: [facility] [address] Performing Lab: [facility] [address] [place] [facility] CBC MCH [ENTITIC MASS] BY AUTOMATED COUNT 32.1 pg 27 - 33 07/13 Specimen Type: BLOOD No comment entered. Ordering Provider: JI DUMONT Report Released Date/Time: May 19, 2022 10:23 AM Reporting Lab: [facility] [address] Performing Lab: [facility] [address] [place] [facility] CBC MCHC [MASS/VOLUM E] BY AUTOMATED COUNT 34.8 g/dL 32.0 - 37.5 07/13 Specimen Type: BLOOD No comment entered. Ordering Provider: JI DUMONT Report Released Date/Time: May 19, 2022 10:23 AM Reporting Lab: [facility] [address] Performing Lab: [facility] [address] [facility] CBC PLATELETS [#/VOLUME] IN BLOOD BY AUTOMATED COUNT 202 10*3/u L 150 - 400 07/13 Specimen Type: BLOOD No comment entered. Ordering Provider: JI DUMONT Report Released Date/Time: May 19, 2022 10:23 AM Reporting Lab: [facility] [address] Performing Lab: [facility] [address] [place] [facility] CBC PLATELET MEAN VOLUME [ENTITIC VOLUME] IN BLOOD BY AUTOMATED COUNT 8.7 fL 7.4 - 10.4 07/13 Specimen Type: BLOOD No comment entered. Ordering Provider: JI DUMONT Report Released Date/Time: May 19, 2022 10:23 AM Reporting Lab: [facility] [address] Performing Lab: [facility] [address] [facility] CBC ERYTHROCYTE DISTRIBUTIO N WIDTH [RATIO] BY AUTOMATED COUNT 13.0 11.5 - 14.5 07/13 Specimen Type: BLOOD No comment entered. Ordering Provider: JI DUMONT Report Released Date/Time: May 19, 2022 10:23 AM Reporting Lab: [facility] [address] Performing Lab: [facility] [address] [place] [facility] HEMOGLOBI N A1C HEMOGLOBIN A1C/HEMOGLO BIN.TOTAL IN BLOOD 6.6 4.0 - 6.0 07/13 H Specimen Type: BLOOD Comment: Values obtained from A1C measurement s can vary. For typical A1C assays, a reported value of 7.0 could actually be between 6.7 and 7.3 if measured by a reference method. A reported value of 9.0 could actually be between 8.7 and 9.3. Ref: http://www. ngsp.org/[place] Pdata.asp Ordering Provider: JI DUMONT Report Released Date/Time: May 19, 2022 10:23 AM Reporting Lab: [facility] [address] Performing Lab: [facility] [address] [facility] Vital Signs Combined list of inpatient and outpatient Vital Signs from Department of Defense and [facility], ranging from 12 months to all on record, depending upon the facility. Vital Sign Value Date Comments Source Encounters Combined list of: 1) Encounters from Department of Veterans Affairs facilities going back up to thelast 18 months. 2) Encounters from the Department of [facility] Medical facilities going back up to 280 months. Location Location Details Encounter Type Encounter Number Reason For Visit Attending Provider ADM Date DC Date Status Disposition Source [facility] Outpatient Encounter [id number] 04/14 [facility] OFFICE O/P EST HI 40-54 MIN [id number] Diagnos is: ICD-10- CM E11.9 Type 2 diabete s mellitu s without complic ations< br/> JI DUMONT 04/14 [facility] Outpatient Encounter [id number] 04/17 [facility] QNHP OL DIG ASSMT&MGMT 11-20 [id number] Diagnos is: ICD-10- CM Z79.01 long-term (curren t) use of anticoa gulants
JEFFY MIRZA 04/27 [facility] [id number] Diagnos is: ICD-10- CM Z01.20 Encount er for dental exam and cleanin g w/o abnorma l finding s
LEYLA HOFFMAN 04/28 [facility] Outpatient Encounter [id number] NILSON TORRES 04/29 [facility] Outpatient Encounter [id number] NILSON TORRES 04/30 [facility] [place] [facility] Outpatient Encounter [id number] 05/02 [place] [facility] Outpatient Encounter [id number] LETI MOHAMUD 05/03 [place] [facility] Outpatient Encounter [id number] 05/12 [facility] OFFICE O/P EST HI 40-54 MIN [id number] Diagnos is: ICD-10- CM E11.9 Type 2 diabete s mellitu s without complic ations< br/> JI DUMONT 05/19 [place] [facility] En[facility] [id number] 05/22 [facility] [place] [facility] Outpatient Encounter [id number] 05/24 [place] [facility] [place] [facility] Outpatient Encounter [id number] JI DUMONT 05/24 [place] 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
SEDA BRAVO IE 06/12 [facility] OFFICE O/P NEW LOW 30-44 MIN [id number] Diagnos is: ICD-10- CM M47.892 Other spondyl osis, cervica l region< br/> SEDA BRAVO IE 06/12 [facility] PRO PHONE CALL 11-20 MIN [id number] Diagnos is: ICD-10- CM E11.9 Type 2 diabete s mellitu s without complic ations< br/> GEMMA CHAVEZ 06/29 [place] [facility] OFFICE O/P EST HI 40-54 MIN [id number] Diagnos is: ICD-10- CM E11.9 Type 2 diabete s mellitu s without complic ations< br/> [facility]UMONT 07[facility] Outpatient Encounter [id number] 07/13 [facility] OFF/OP CNSLTJ NEW/EST MOD 40 [id number] Diagnos is: ICD-10- CM E11.9 Type 2 diabete s mellitu s without complic ations< br/> DIXON VINSON 07/18 [facility] PRO PHONE CALL 21-30 MIN [id number] Diagnos is: ICD-10- CM E11.9 Type 2 diabete s mellitu s without complic ations< br/> GEMMA CHAVEZ 08/03 [place] [facility] EXT ECG>7D<15D REV&INTERP J [id number] Diagnos is: ICD-10- CM Z13.6 Encount er for screeni ng for cardiov ascular disorde rs
Diya RIOS S 08/09 [facility] Outpatient Encounter [id number] SA RA Modesta CRUZ 08/21 [facility] [place] [facility] Outpatient Encounter [id number] 09/05 [facility] PT EVAL MOD COMPLEX 30 MIN [id number] Diagnos is: ICD-10- CM H81.399 Other periphe ral vertigo , unspeci fied ear<br/ > [facility] B 09/07 [facility] SELF CARE MNGMENT TRAINING [id number] Diagnos is: ICD-10- CM H81.12 Benign paroxys mal vertigo , left ear<br/ > [facility] B 09/08 [facility] Outpatient Encounter [id number] 09/22 [facility] Outpatient Encounter [id number] 12/14 [facility] Outpatient Encounter [id number] JI DUMONT B 01/02 [facility] OFFICE O/P EST HI 40-54 MIN [id number] Diagnos is: ICD-10- CM 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
JI DUMONT B 01/17 [facility] Outpatient Encounter [id number] 01/22 [facility] Outpatient Encounter [id number] 01/25 [facility] QNHP OL DIG ASSMT&MGMT 5-10 [id number] Diagnos is: ICD-10- CM A04.9 Bacteri al intesti nal infecti on, unspeci fied
RUTHIE DODD 01/26 [place] [facility] [place] [facility] Outpatient Encounter [id number] SVETLANA DUMONTO B 01/28 [place] [facility] [place] [facility] Outpatient Encounter [id number] JULIA,JI B 01/28 [place] [facility] [place] [facility] Outpatient Encounter [id number] 02/13 [place] [facility] [place] [facility] Outpatient Encounter [id number] 02/23 [place] [facility] [place] [facility] Outpatient Encounter [id number] SVETLANA DUMONTO Perez 03/13 [place] [facility] Outpatient Encounter [id number] 03/14 [place] [facility] En[facility] [id number] 04/03 [facility] Outpatient Encounter [id number] LETI MOHAMUD 04/11 [place] [facility] [place] [facility] Outpatient Encounter [id number] Luanne ARNDT 04/13 [place] [facility] [place] [facility] Outpatient Encounter [id number] 04/15 [place] [facility] [place] [facility] Outpatient Encounter [id number] Luanne ARNDT 04/17 [place] [facility] En[facility] [id number] 04/18 [facility] [place] [facility] Outpatient Encounter [id number] Luanne ARNDT 04/19 [place] [facility] [place] [facility] Outpatient Encounter [id number] MARISAMARGARITA Stroud 05/01 [place] [facility] [place] [facility] OFFICE O/P EST MOD 30 MIN [id number] Diagnos is: ICD-10- CM E11.9 Type 2 diabete s mellitu s without complic ations< br/> JI DUMONT 05/07 [place] [facility] [place] [facility] Outpatient Encounter [id number] 05/07 [place] [facility] OFF/OP CNSLTJ NEW/EST MOD 40 [id number] Diagnos is: ICD-10- CM C61 Maligna nt neoplas m of prostat e
KP DE LA ROSA 05/07 [facility] [place] [facility] Outpatient Encounter [id number] Luanne ARNDT L 05/08 [place] [facility] [place] [facility] Outpatient Encounter [id number] 05/08 [place] [facility] Outpatient Encounter [id number] 06/17 [facility] [place] [facility] Outpatient Encounter [id number] 06/17 [place] [facility] [place] [facility] Outpatient Encounter [id number] 06/20 [place] [facility] [place] [facility] Outpatient Encounter [id number] 07/09 [place] [facility] [place] [facility] Out[place] Encounter [id number] 07/12 [place] [facility] [place] [facility] Out[place] Encounter [id number] 07/17 [place] [facility] [place] [facility] Out[place] Encounter [id number] 07/29 [place] [facility] [place] [facility] Out[place] Encounter [id number] 08/07 [place] [facility] [place] [facility] Outpatient Encounter [id number] 08/12 [place] [facility] [place] [facility] Outpatient Encounter [id number] 08/15 [place] [facility] [place] [facility] OFFICE O/P EST MOD 30 MIN [id number] Diagnos is: ICD-10- CM E11.9 Type 2 diabete s mellitu s without complic ations< br/> JI DUMONT 08/19 [place] [facility] [place] [facility] ORTHOTIC MGMT&TRAIN G 1ST ENC [id number] Diagnos is: ICD-10- CM E11.9 Type 2 diabete s mellitu s without complic ations< br/> PARVEEN BAEZ 08/26 [place] [facility] [place] [facility] Outpatient Encounter [id number] 08/26 [place] [facility] [place] [facility] Outpatient Encounter [id number] 09/05 [place] [facility] [place] [facility] Outpatient Encounter [id number] 09/27 [place] [facility] [place] [facility] Outpatient Encounter [id number] 10/01 [place] [facility] [place] [facility] Outpatient Encounter [id number] KENZIE BEE 10/03 [place] [facility] [place] [facility] Outpatient Encounter [id number] LETI MOHAMUD [facility] Social History Combined list of available smoking, tobacco, and other social history from [facility] and [facility] facilities. Social History Type Response Date Comment Sourc e Tobacco smoking status NHIS VA-TOBACCO FORMER USER 01/17/2023 [facility] History of tobacco use VA-TOBACCO QUIT 1 5 YRS OR MORE 01/17/2023 [facility] History of tobacco use VA-TOBACCO FORMER USER 02/01/2022 [facility] History of tobacco use VA-TOBACCO FORMER USER 09/28/2020 [facility] History of tobacco use VA-TOBACCO FORMER USER 12/25/2019 [facility] History of tobacco use VA-TOBACCO QUIT 1 5 YRS OR MORE 02/21/2018 [facility] History of tobacco use FORMER TOBACCO US ER 7Y OR GREATER 08/08/2017 [facility] History of tobacco use FORMER TOBACCO US ER 7Y OR GREATER 08/22/2016 [facility] History of tobacco use FORMER TOBACCO US ER 7Y OR GREATER 08/23/2015 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 History of tobacco use FORMER TOBACCO US ER 7Y OR GREATER 04/02/2006 [facility] ([facility] Plan of Care List of future care activities from [facility] facilities. Additional future care activities may be listed in the Assessment and Plan section. Date/Time Care Activity Care Activity Detail Facili ty 08/27/2023 Laboratory - Chemistry Order ALB UMIN/CREATININE RATIO URINE URINE WC ONCE [facility] 08/27/2023 Laboratory - Chemistry Order HEMOGLOBIN A 1C BLOOD WC [facility] Advance Directives List of completed, amended, or rescinded Advance Directives on record at [facility] facilities. An actual copy of the Directive is not included. Date Advance Directive Provider Source 08/13/2014 ADVANCE DIRECTIVE VANDANA MAURICE [facility] 05/06/2007 ADVANCE DIRECTIVE MARCIA MARCELINO S [facility]
--- OUTSIDE RECORDS SUMMARY | 2023-10-08 12:22 | XMS_ITS | Encounter Summary ---
Author Name [facility] [facility] [place] [facility] [facility] [place] Address [address] [place] [address] Care Team Providers Care Parts Counter Representative Name Role Phone JI DUMONT Primary [...] Ochoa's Name Patient's Relationship to Policy Ochoa [facility] ([facility]) MEDICARE ADVANTAGE [facility] ([facility]) Mar 12, 2015 [id number] BARRY GONZALEZ [facility] ([facility]) MEDICARE ADVANTAGE [facility] Mar 12, 2015 [id number] [phone] BARRY GONZALEZ PATIENT [facility] ([facility]) MEDICARE ADVANTAGE [facility] ([facility]) Mar 12, 2015 [id number] [phone] JUSTYNAANGELABARRY PATIENT [facility] RETIREE PLATI NUM BLUE COMPL E Mar 12, 2016 [id number] LISABARRY PATIENT [facility] ([facility]) MEDICARE ADVANTAGE [facility] ([facility]) Mar 12, 2015 [id number] BARRY GONZALEZ PATIENT MEDICARE (WNR) MEDICARE (M) PART A Mar 12, 2000 PART A [id number] [phone] BARRY GONZALEZ PATIENT Selected Encounter This section includes the information on [place] at [place] for the Encounter. Date/Time Encounter Type Encounter Description Reason Provider Source Apr 19, 2023 02:19 PM Outpatient Encounter ADMIN PAT ACTIVTIES (MASNONCT) MARIANGEL ARNDT IHLizzy Encounter Template Text not used by [place] Plan of Treatment: Future Appointments (+ 6 months) and Future Tests (+/- 45 days) The Plan of Treatment section includes future care activities for the patient from all [place] [facility]. This section includes future appointments and future orders which are active, pending or scheduled. Future Appointments This section includes appointments that were scheduled to occur 6 months from the date of the Encounter, up to a maximum of 20 appointments. The data comes from all [place] treatment facilities. Appointment Date/Time Appointment Type Appointme nt Facility Name May 07, 2023 09:00 AM AMBULATORY - MEDICINE [facility] May 07, 2023 12:00 PM [facility] SURGERY [facility] Jun 21, 2023 10:00 AM AMBULATORY - NONE [facility] Aug 20, 2023 09:30 AM AMBULATORY - MEDICINE [facility] Aug 21, 2023 11:00 AM AMBULATORY - NONE [facility] Aug 27, 2023 10:00 AM AMBULATORY - NONE [facility] Aug 27, 2023 11:00 AM AMBULATORY - REHAB MEDICIN E [facility] Aug 28, 2023 02:10 PM AMBULATORY - NONE [facility] Social History: Smoking Status (Most current) and Tobacco Use (All prior to encounter date) This section includes the most current, and the historical, smoking and tobacco- related health factors from the [place] facility where the Encounter took place. Current Smoking Status This section includes the most current smoking, or tobacco-related health factor, from the [place] facility where the Encounter took place. Date/Time Current Smoking Status Victor Hugo dean Jan 17, 2023 10:45 AM VA-TOBACCO FORMER USER [facility] Tobacco Use History This section includes a history of the smoking, or tobacco-related health factors, that were collected on or before the date of the Encounter. The data comes from the [place] facility where the Encounter took place. Date/Time Smoking Status/Tobacco Use Comment F acility Jan 17, 2023 10:45 AM VA-TOBACCO QUIT 15 YRS OR MORE [facility] Feb 01, 2022 10:15 AM VA-TOBACCO FORMER USER [facility] Feb 01, 2022 10:15 AM VA-TOBACCO QUIT 15 YRS OR MORE [facility] Sep 28, 2020 03:20 PM VA-TOBACCO FORMER USER [facility] Sep 28, 2020 03:20 PM VA-TOBACCO QUIT 15 YRS OR MORE [facility] Dec 25, 2019 10:30 AM VA-TOBACCO FORMER USER [facility] Dec 25, 2019 10:30 AM VA-TOBACCO QUIT 15 YRS OR MORE [facility] Feb 21, 2018 11:12 AM VA-TOBACCO FORMER USER [facility] Feb 21, 2018 11:12 AM VA-TOBACCO QUIT 15 YRS OR MORE [facility] August 08, 2017 11:28 AM FORMER TOBACCO USER 7Y OR GREATE R [facility] Aug 22, 2016 07:47 AM FORMER TOBACCO USER 7Y OR GREATE R [facility] Aug 23, 2015 09:50 AM FORMER TOBACCO USER 7Y OR GREATE R [facility] Aug 13, 2014 08:34 AM LIFETIME NON-TOBACCO USER [facility] Aug 11, 2013 07:48 AM LIFETIME NON-TOBACCO USER [facility] Advance Directives: All historical and current Section Date Range: From patient's date of to the date document was created. This section includes ALL of a patient's completed or amended [place] Advance and Rescinded Directives. The entries below indicate that a directive exists for the patient, but an actual copy is not included with this document. The data comes from all [facility]. Date Advance Directives Provider Source Aug 13, 2014 ADVANCE DIRECTIVE VANDANA MAURICE [facility] Aug 13, 2014 ADVANCE DIRECTIVE DISCUSSION VANDANA MAURICE [facility] May 06, 2007 ADVANCE DIRECTIVE MAYITO PIERRE [facility] Encounter Notes: All associated encounter notes This section contains the clinical notes associated to the Encounter. Date/Time Encounter Note(s) Provider Source Apr 19, 2023 02:19 PM POULTRY INSEMINATOR REFER RAL NOTE: LOCAL TITLE: TRAVELING COORDINATOR NOTE STANDARD TITLE: POULTRY INSEMINATOR REFERRAL NOTE DATE OF NOTE: APR 19, 2023@14:19 ENTRY DATE: APR 19, 2023@14:19:54 AUTHOR: MARIANGEL ARNDT EXP COSIGNER: URGENCY: STATUS: COMPLETED Traveling Vet consult activity for: incoming/outgoing consult care coordination, communication &/or chart review. /valarie/ SERGE GARCIA TRAVELING COORDINATOR Signed: 04/19/2023 14:20 MARIANGEL ARNDT [facility]
--- OUTSIDE RECORDS SUMMARY | 2023-10-08 12:22 | XMS_ITS | Encounter Summary ---
Author Name [facility] Address [address] [place] [address] Care Team Providers Care Sales Teacher Name Role Phone JI DUMONT Primary Care [...] Ochoa's Name Patient's Relationship to Policy Ochoa [facility] ([facility]) MEDICARE ADVANTAGE [facility] ([facility]) Mar 12, 2015 [id number] [phone] BARRY GONZALEZ [facility] ([facility]) MEDICARE ADVANTAGE [facility] Mar 12, 2015 [id number] [phone] BARRY GONZALEZ PATIENT [facility] ([facility]) MEDICARE ADVANTAGE [facility] ([facility]) Mar 12, 2015 [id number] [phone] JUSTYNAPAMELABARRY PATEL PATIENT BLUE [facility] RETIREE PLATI NUM BLUE COMPL E Mar 12, 2016 [id number] LISABARRY [facility] (WNR) MEDICARE ADVANTAGE [facility] (WNR) Mar 12, 2015 [id number] BARRY GONZALEZ PATIENT MEDICARE (WNR) MEDICARE (M) PART A Mar 12, 2000 PART A [id number] BARRY GONZALEZ PATIENT Selected Encounter This section includes the information on record at ME for the Encounter. Date/Time Encounter Type Encounter Description Reason Provider Source Jan 17, 2023 10:45 AM OFFICE O/P EST HI 40-54 MIN PRIMARY CARE/MEDICINE ICD-10-CM K58.9 Irritable bowel syndrome without diarrhea [facility] Encounter Template Text not used by ME Assessments - Encounter Diagnoses This section includes the primary and secondary diagnoses documented for the Encounter. 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 [facility] Jan 17, 2023 02:30 PM SECONDARY Diabetes due to underlying condition w diabetic neurop, unsp [facility] Jan 17, 2023 02:30 PM SECONDARY Dizziness and giddiness [facility] Jan 17, 2023 02:30 PM SECONDARY Essential (primary) hypertension [facility] Jan 17, 2023 02:30 PM SECONDARY long-term (current) use of anticoagulants [facility] Jan 17, 2023 02:30 PM SECONDARY Neoplasm of uncertain behavior of skin [facility] Jan 17, 2023 02:30 PM SECONDARY Type 2 diabetes mellitus with diabetic polyneuropathy [facility] Jan 17, 2023 02:30 PM SECONDARY Type 2 diabetes mellitus without complications [facility] Jan 17, 2023 02:30 PM SECONDARY Ventricular premature depolarization [facility] Plan of Treatment: Future Appointments (+ 6 months) and Future Tests (+/- 45 days) The Plan of Treatment section includes future care activities for the patient from all [facility] treatmentfacilities. This section includes future appointments and future orders which are active, pending or scheduled. Future Appointments This section includes appointments that were scheduled to occur 6 months from the date of the Encounter, up to a maximum of 20 appointments. The data comes from all [facility]. Appointment Date/Time Appointment Type Appointme nt Facility Name May 07, 2023 09:00 AM AMBULATORY - MEDICINE [place] [facility] May 07, 2023 12:00 PM AMBULATORY - SURG[facility] Jun 21, 2023 10:00 AM AMBULATORY - NONE [place] [facility] [facility] Active, Pending, and Scheduled Orders This section includes a listing of several types of active, pending, and scheduled orders, including clinic medications orders, diagnostic test orders, procedure orders and consult orders; where the start date of the order is 45 days before the date of the Encounter or 45 days after the date of theEncounter. The data comes from all [facility]. Test Date/Time Test Type Test Details Facility Name Feb 01, 2023 12:00 AM Laboratory - Chemi stry Order BASIC METABOLIC PANEL+MG PLASMA [facility] Feb 01, 2023 12:00 AM Laboratory - Chemi stry Order HEMOGLOBIN A1C BLOOD [facility] Feb 01, 2023 12:00 AM Laboratory - Chemi stry Order LIPID PANEL,NON-FASTING PLASMA SP [facility] Feb 01, 2023 12:00 AM Laboratory - Chemi stry Order CBC BLOOD [facility] Feb 01, 2023 12:00 AM Laboratory - Chemi stry Order BASIC METABOLIC PANEL+MG PLASMA [facility] Feb 01, 2023 12:00 AM Laboratory - Chemi stry Order AST/SGOT PLASMA SP ONCE [facility] Feb 01, 2023 12:00 AM Laboratory - Chemi stry Order ALT/SGPT PLASMA SP ONCE [facility] Feb 01, 2023 12:00 AM Laboratory - Chemi stry Order HEMOGLOBIN A1C BLOOD [facility] Feb 22, 2023 12:51 PM Consult Order COMMUNITY CARE-DENTAL GEN SERV Cons Research Development Director's Choice [facility] Lab Results: +/- 30 days of the encounter This section includes the Chemistry and Hematology Lab Results on record with ME for the patient. Radiology Reports and Pathology Reports are provided separately, in subsequent sections. Lab Results This section contains the Chemistry/Hematology Results that were resulted 30 days before or 30 daysafter the date of the Encounter. Date/Time Source Result Type Result - Unit Interpretation Reference Range Comment Jan 17, 2023 09:35 AM [facility] HEMOGLOBIN A1C Specimen Type: BLOOD Comment: Values [...] July 13, 2022 12:08 PM Reporting Lab: [facility] [id number] Performing Lab: [facility] [id number] HEMOGLOBIN A1C 6.7 H 4.0-6.0 Jan 17, 2023 09:35 AM [facility] PSA Specimen Type: SERUM No comment entered. Ordering Provider: JI DUMONT Report Released Date/Time: Jan 03, 2023 11:09 AM Reporting Lab: [facility] [id number] Performing Lab: [facility] [id number] PSA 7.27 ng/mL H <4.00 Jan 17, 2023 09:35 AM [facility] BASIC METABOLIC PANEL+MG Specimen Type: PLASMA Comment: Elevated triglyceride result from a non-fasting specimen should be interpreted with caution. A fasting panel is recommended for accurate triglycerides when trigs are >200 from a non-fasting specimen. Ordering Provider: JI DUMONT Report Released Date/Time: July 13, 2022 12:08 PM Reporting Lab: [facility] [id number] Performing Lab: [facility] [id number] CREATININE 1.2 mg/dL 0.7-1.2 UREA NITROGEN 24 mg/dL 8-26 GLUCOSE 276 mg/dL H 70-100 SODIUM 141 mmol/L 136-145 POTASSIUM 4.7 mmol/L 3.5-5.1 CHLORIDE 106 mmol/L 98-107 CO2 25 mmol/L 22-29 CALCIUM 9.4 mg/dL 8.4-10.2 MAGNESIUM 1.7 mg/dL 1.6-2.6 ANION GAP 10 mmol/L 5-15 .CREAT EGFR(CKD-EPI) 62 >60 Jan 17, 2023 09:35 AM [facility] LIPID PANEL,NON-FASTING Specimen Type: PLASMA Comment: Elevated triglyceride result from a non-fasting specimen should be interpreted with caution. A fasting panel is recommended for accurate triglycerides when trigs are >200 from a non-fasting specimen. Ordering Provider: JI DUMONT Report Released Date/Time: July 13, 2022 12:08 PM Reporting Lab: [facility] [id number] Performing Lab: [facility] [id number] CHOLESTEROL 133 mg/dL <199 .HDL 34 mg/dL L >40 LDL CALCULATION 57 mg/dL <99 VLDL CALCULATION 42 mg/dL H <29 NON HDL CHOLESTEROL 99 mg/dL <129 TRIG(NON FASTING) 210 mg/dL H <149 Vital Signs: All taken on the encounter date This section contains inpatient and outpatient Vital Signs collected on the date of the Encounter. Date/Time Temperature Pulse Blood Pressure Respiratory Rate SP02 Pain Height Weight Body Mass Index Source Jan 17, 2023 10:52 AM 98.2 F 73 /min 110/69 mm[Hg] 16 /min 95 % 3 71.5 in 208.7 lb 29 [place] [facility] Social History: Smoking Status (Most current) and Tobacco Use (All prior to encounter date) This section includes the most current, and the historical, smoking and tobacco- related health factors from the [place] facility where the Encounter took place. Current Smoking Status This section includes the most current smoking, or tobacco-related health factor, from the [place] facility where the Encounter took place. Date/Time Current Smoking Status Comment Nadine ity Jan 17, 2023 10:45 AM VA-TOBACCO FORMER USER [facility] Tobacco Use History This section includes a history of the smoking, or tobacco-related health factors, that were collected on or before the date of the Encounter. The data comes from the [place] facility where the Encounter took place. Date/Time Smoking Status/Tobacco Use Comment F acility Jan 17, 2023 10:45 AM ME-TOBACCO QUIT 15 YRS OR MORE [facility] Feb 01, 2022 10:15 AM VA-TOBACCO FORMER USER [facility] Feb 01, 2022 10:15 AM VA-TOBACCO QUIT 15 YRS OR MORE [facility] Sep 28, 2020 03:20 PM VA-TOBACCO FORMER USER [facility] Sep 28, 2020 03:20 PM VA-TOBACCO QUIT 15 YRS OR MORE [facility] Dec 25, 2019 10:30 AM VA-TOBACCO FORMER USER [facility] Dec 25, 2019 10:30 AM VA-TOBACCO QUIT 15 YRS OR MORE [facility] Feb 21, 2018 11:12 AM VA-TOBACCO FORMER USER [facility] Feb 21, 2018 11:12 AM VA-TOBACCO QUIT 15 YRS OR MORE [facility] August 08, 2017 11:28 AM FORMER TOBACCO USER 7Y OR GREATE R [facility] Aug 22, 2016 07:47 AM FORMER TOBACCO USER 7Y OR GREATE R [facility] Aug 23, 2015 09:50 AM FORMER TOBACCO USER 7Y OR GREATE R [facility] Aug 13, 2014 08:34 AM LIFETIME NON-TOBACCO USER [facility] Aug 11, 2013 07:48 AM LIFETIME NON-TOBACCO USER [facility] Advance Directives: All historical and current Section Date Range: From patient's date of to the date document was created. This section includes ALL of a patient's completed or amended [place] Advance and Rescinded Directives. The entries below indicate that a directive exists for the patient, but an actual copy is not included with this document. The data comes from all [facility]. Date Advance Directives Provider Source Aug 13, 2014 ADVANCE DIRECTIVE VANDANA MAURICELOS [facility] Aug 13, 2014 ADVANCE DIRECTIVE DISCUSSION VANDANA MAURICE [facility] May 06, 2007 ADVANCE DIRECTIVE MAYITO PIERRE [facility] Encounter Notes: All associated encounter notes This section contains the clinical notes associated to the Encounter. Date/Time Encounter Note(s) Provider Source Jan 17, 2023 11:50 AM ADMINISTRATIVE NOTE: LOCAL TITLE: AFTER VISIT SUMMARY NOTE STANDARD TITLE: ADMINISTRATIVE NOTE DICT DATE: JAN 17, 2023@11:50:37 ENTRY DATE: JAN 17, 2023@11:50:37 DICTATED BY: JI DUMONT EXP COSIGNER: URGENCY: STATUS: COMPLETED The patient was provided with a copy of an after-visit summary at the conclusion of the visit. A copy of the after-visit summary provided to the patient is available in [facility] [facility]. SCANNED DOCUMENT SIGNATURE NOT REQUIRED Electronically Filed: 01/17/2023 by: JI DUMONT MD PHYSICIAN, [facility] JI DUMONT [facility] Jan 17, 2023 10:54 AM INTERNAL MEDICINE OUTPATIENT NOTE: LOCAL TITLE: MEDICINE CLINIC NURSING NOTE STANDARD TITLE: INTERNAL MEDICINE OUTPATIENT NOTE DATE OF NOTE: JAN 17, 2023@10:54 ENTRY DATE: JAN 17, 2023@10:54:43 AUTHOR: LONI COREA EXP COSIGNER: URGENCY: STATUS: COMPLETED TYPE OF VISIT: Appointment Check In Type of appointment: In-person appointment REASON FOR VISIT: Annual ALLERGIES: GABAPENTIN (Nov 24, 2008) LISINOPRIL (Sep 04, 2017) VITAL SIGNS: Blood Pressure: 110/69 (01/17/2023 10:52) Pulse: 73 (01/17/2023 10:52) Respiration: 16 (01/17/2023 10:52) Temperature: 98.2 F [36.8 C] (01/17/2023 10:52) Weight: 208.7 lb [94.66 kg] (01/17/2023 10:52) Height: 71.5 in [181.6 cm] (01/17/2023 10:52) BMI: 28.8 O2 Sat: 95% (01/17/2023 10:52) Pain: 3 (01/17/2023 10:52) PAIN SCREEN: Patient is not having significant pain that they wish to discuss with their provider today. Depression Screening: Perform PHQ-2 A PHQ-2 screen was performed. The score was 0 which is a negative screen for depression. Over the past two weeks, how often have you been bothered by the following problems? 1. Little interest or pleasure in doing things Not at all 2. Feeling down, depressed, or hopeless Not at all Suicide Screen: C-SSRS Screening Mary Esther Suicide Severity Rating Scale (C-SSRS) screener 1. Over the past month, have you wished you were or wished you could go to sleep and not wake up? No 2. Over the past month, have you had any actual thoughts of killing yourself? No 3. Over the past month, have you been thinking about how you might do this? Response not required due to responses to other questions. 4. Over the past month, have you had these thoughts and had some intention of acting on them? Response not required due to responses to other questions. 5. Over the past month, have you started to work out or worked out the details of how to kill yourself? Response not required due to responses to other questions. 6. If yes, at any time in the past month did you intend to carry out this plan? Response not required due to responses to other questions. 7. In your lifetime, have you ever done anything, started to do anything, or prepared to do anything to end your life (for example, collected pills, obtained a gun, gave away valuables, went to the roof but didn't jump)? No 8. If YES, was this within the past 3 months? Response not required due to responses to other questions. Alcohol Use Screen (AUDIT-C): Alcohol Screen: SCREEN FOR ALCOHOL (AUDIT-C) An alcohol screening test (AUDIT-C) was negative (score=0). 1. How often did you have a drink containing alcohol in the past year? Never 2. How many drinks containing alcohol did you have on a typical day when you were drinking in the past year? Response not required due to responses to other questions. 3. How often did you have six or more drinks on one occasion in the past year? Response not required due to responses to other questions. Tobacco Use Screening: The patient is a former tobacco user. The patient quit fifteen or more years ago. Homelessness/Food Insecurity Screen: In the past 2 months, have you been living in stable housing that you own, rent, or stay in as part of a household? Yes - Living in stable housing. Are you worried or concerned that in the next 2 months you may NOT have stable housing that you own, rent, or stay in as part of a household? No - Not worried about housing near future The [place] reports the following: Within the past 12 months, you worried whether your food would run out before you got money to buy more. Never true Within the past 12 months, the food you bought just didn't last and you didn't have money to get more. Never true Food Insecurity Resources Nursing Annual Screening: Fall History Screen During the past 12 months, have you had any falls? Patient does not report any falls in the past 12 months. MEDICATIONS: Patient is on one of the following medication classes: Antihypertensives, Antidepressants, Antipsychotics, Diuretics, or Controlled substance medication used for pain. FALL RISK ADVICE: Fall Risk Advice provided. Handout entitled Fall Prevention At Home reviewed and given to patient and/or significant other. Script Talk Screen Are you able to read your prescription bottles with your glasses, magnifiers or other aids? Yes or patient not taking any prescriptions. Skin Screen Patient reports any current pressure ulcers, a history of pressure ulcers, or a wound from a durable medical equipment repairer or Patient is bed-confined or a wheelchair-user or Patient requires assistance to transfer/change position No, Skin Screen is Negative Home Abuse/Violence Screen Is your home free of abuse and violence? Yes MOVE! Program Screen Body Mass Index (BMI)= 28.8 [place]: Collection DT Specimen Test Name Result Units Ref Range 01/17/2023 09:35 BLOOD !! HEMOGLOBIN A1C 6.7 H % 4.0 - 6.0 !! Indicates COMMENTS AVAILABLE...Refer to Interim Lab Report. [place] Hgb A1C: No data available [place] Hgb A1C: No data available Point of Care Hgb A1C: POC HGB A1C____ Outpatient Nutrition Screen Body Mass Index (BMI)= 28.8 [place]: Collection DT Specimen Test Name Result Units Ref Range 01/17/2023 09:35 BLOOD !! HEMOGLOBIN A1C 6.7 H % 4.0 - 6.0 !! Indicates COMMENTS AVAILABLE...Refer to Interim Lab Report. [place] Hgb A1C: No data available [place] Hgb A1C: No data available Point of Care Hgb A1C: POC HGB A1C____ Is patient's BMI less than 18.5? No Does patient have swallowing, coughing, or chewing problems affecting oral intake? No Has patient experienced unplanned weight loss or gain greater than 10 pounds over the last 2 months? No Is patient's Hgb A1C (Glycosylated Hemoglobin) greater than 9.5? No Is patient receiving Total Parenteral Nutrition (TPN) or Tube Feedings? No Patient Health Education Screen BARRIERS/SPECIAL NEEDS: Physical limitations Hearing limitations Visual limitations PREFERRED STYLE OF LEARNING: No preference stated Client Assistive Service ([place]) Screen Does the patient require assistance with outpatient visit? No COVID-19 Immunization: Refused Pfizer Monovalent COVID-19 vaccine Immunization: COVID-19 (PFIZER), MRNA, LNP-S, PF, HYUN-SUCROSE, 30 MCG/0.3 ML (AGES 12+ YEARS) Refusal Reason: PATIENT DECISION Patient refuses all immunization(s) in the COVID-19 group Date Documented: 01/17/23 10:57 Influenza Immunization: The patient declines to receive the recommended dose of seasonal influenza vaccine. Immunization: INFLUENZA, UNSPECIFIED FORMULATION Refusal Reason: PATIENT DECISION Patient refuses all immunization(s) in the FLU group Date Documented: 01/17/23 10:58 /valarie/ LONI COREA MAILHOUSE OPERATOR Signed: 01/17/2023 10:58 LONI COREA [facility] Jan 17, 2023 10:45 AM INTERNAL MEDICINE NOTE: LOCAL TITLE: MEDICINE CLINIC NOTE STANDARD TITLE: INTERNAL MEDICINE NOTE DATE OF NOTE: JAN 17, 2023@10:45 ENTRY DATE: JAN 17, 2023@14:19:35 AUTHOR: JI DUMONT EXP COSIGNER: URGENCY: STATUS: COMPLETED MEDICINE CLINIC NOTE Has ADDENDA MEDICINE CLINIC NOTE ASSESSMENT AND PLAN #Scab right ear pinna: Recommend that he not pick this off and let it heal on its own. He should let me know if it does not heal or recurs without him picking at it at which point I would get a telemetry dermatology evaluation. #Elevated PSA: following at [facility] #BPPV: s/p PT 08/2022 #Chronic abdominal pain and bloating, suspect irritable bowel syndrome with intermittent diarrhea and constipation The patient has broad work-up for multiple other problems over the past few years, including CT abdomen pelvis in 2022 that was not suggestive of any intra- abdominal pathology, multiple EGDs not suggestive of celiac disease. Recent H. pylori stool antigen test at the [facility] that was negative. Normal LFTs and blood counts. Differential also includes gastroparesis given his diabetes. -Nutrition referral for FODMAP diet -Fiber titration as noted in AVS -Patient to follow-up his SIBO testing from the [facility] # DM II -empagliflozin 25 mg daily -semaglutide 1 mg weekly -glargine 24 units daily -metformin 1000 mg twice daily # Weight loss Has stabilized from 237 pounds to around 200 pounds. Suspect this is related to adjusting his diabetes medications, including adding empagliflozin, decreasing glargine, and adding semaglutide. He is up-to-date on his colonoscopy and CT chest abdomen pelvis has been reassuring. Weight now appears to be stable around 200 to 210 pounds. # CAD s/p KYMBERLY to LCX 2003, LAD 2011 Follows at [facility], last stress test 07/2021 at [facility] negative. - rivaroxaban, metoprolol 50 mg daily -> increase to twice daily per Dao cards - ezetimibe 10 mg daily and niacin due to elevated CK w/ statins # Symptomatic PVC and PAC: metoprolol succinate 50 mg increased to twice daily CHRONIC # SIADH salt tabs 2 g daily # BPH: finasteride, tamsulosin 0.4 mg nightly # Peripheral neuropathy 2/2 DM: on pregabalin 75 + 225 # RLS: pramipexole 0.25 mg twice daily # Allergic rhinitis: intranasal momentane, fexofenadine 180 mg daily # Felipe's, GERD: on PPI, H2, sucralfate; follows with [facility]. Next EGD due approx. 2026 # H/o of unprovoked PE in 2012, on rivaroxaban 20 mg nightly # RHM - PSA completed at [facility] - CRC screening: last colonoscopy [facility] 02/2020 notable for TA transverse colon repeat due 02/2025 - tobacco use history s/p AAA screen 2009 RTC: 6 month Ji Dumont MD General Internal Medicine [facility] A total of 45 minutes was spent on this visit reviewing previous notes, counseling the patient, ordering or interpreting tests, adjusting meds, and documenting the findings in the note. CC: Annual HPI The patient says that his been doing okay since her last visit. He has been discouraged by elevated PSA that was obtained at the [facility] he is planning to see with urology in a few weeks for next steps. He says that his he blood sugars been well controlled at home and has not noticed any low blood sugars. He has had an intermittent scab over his left ear pinna that he scratches on a regular basis and it bleeds and the scab returns. He has not tried leaving it alone. Denies personal or family history of melanoma. Since her last visit, he was seen by our physical therapy team where they helped him with his benign positional vertigo. His main concern today is about intermittent abdominal pain and bloating that is been going on for years. It never seems to go away completely. He has had multiple EGDs at the [facility] for his Felipe's esophagus and evaluation there has not shown any evidence of H. pylori or celiac disease. He has brought this up with his [facility] provider and they ordered an H. pylori test that was negative as well as testing for SIBO via carbohydrate breath test that is still pending. He says that he has intermittent diarrhea and constipation. He might have a bowel movement once every 4 to 5 days followed by loose stools. The abdominal discomfort does not seem to be meal related. He does not consume a lot of dairy products. He has mild nausea when he takes all of his pills in the morning. He finds that the abdominal pain improves after he has a bowel movement. He does not have any nocturnal symptoms. He has had some weight loss that is described elsewhere. His last colonoscopy was to the [facility] February 2020 that was only notable for a tubular adenoma in the transverse colon and diverticulosis. UPDATED PROBLEM LIST Active problems - Computerized Problem List is the source for the followin. CKD stage 3 (SNOMED CT 385917641) 2. Hyperlipidemia (SNOMED CT 55878038) 3. Benign essential hypertension (SNOMED CT 3478492) 4. H/O: pulmonary embolus - on rivaroxaban 20 mg nightly - unprovoked 2012 5. Long-term current use of anticoagulant (SNOMED CT 670391827) 6. Hypomagnesemia 7. Diabetic neuropathy 8. Elevated PSA - Following at [facility] 9. Vertigo - s/p [facility] PT 08/2022 10. Diabetes Mellitus Type 2 ([facility] [id number]) 11. CAD - Coronary Artery Disease ([facility] [id number]) - s/p KYMBERLY to LCX 2003, LAD 2011 - Follows at [facility]ology - ezetimibe 10 mg daily and niacin due to elevated CK w/ statins 12. Allergic Rhinitis ([facility] [id number]) 13. Felipe's Esophagus ([facility] [id number]) - last EGD 12/2021 at [facility] w/o sign of malignancy but short-segment Felipe's esophagus in lower third of esophagus was foun - esophageal study normal 12/2021 - Follows with [facility] - Next EGD due approx. 2026 14. Peripheral neuropathy due to type 2 diabetes mellitus 15. Restless Legs Syndrome ([facility] [id number]) 16. Dyspnea - has been referred to pulmonary at [facility], PFT 12/2021 showed reduced diffusing capacity and normal spirometry 17. Ventricular premature complex - Symptomatic, follows w/ [facility], on BB 18. Venous insufficiency of leg - Uses compression stockings 19. Polyp of colon - last colonoscopy in our record 2014 polyp, which was removed; per patient, another colonoscopy has been done since, following / 20. Lumbar spinal stenosis - s/p whizotomy L3-S1 c/b bilateral foot drop - [facility] - Follows at [facility] where he has had L4-S1 branch blocks 03/2018, RFA L4-S1 05/2018, as well as trigger point injections 04/2021 21. Cervical spinal stenosis - Has had neurosurgery eval suggesting surgy but this was not pursued by the patient MEDICATION RECONCILATION Education Evaluations *Was medication education provided for NEW medications or CHANGES to medications? (including medication name, dose, route, reason for use, and potential side effects). Yes. Verbal education was provided to patient/caregiver and patient/caregiver verbalized understanding. TERATOGENIC MED & CONTRACEPTION REVIEW (Optional)... ======= MEDICATION RECONCILIATION ======= List Given: An updated medication list was provided to the patient/caregiver. Review Done: The medication list shown below was verified for accuracy and it includes all pending medications/active medications/all medications or discontinued within the last 90 days/all remote medications and non-VA medications. If a given category (i.e. remote meds) is not shown, that means that a patient doesn't have a medication(s) in that category. Allergies listed below were also reviewed/updated for accuracy. Allergies/ADR from [facility] may not display in CPRS. Use JLV MRT5 - Allergies/ADRs FACILITY ALLERGY/ADR -------- [facility] NO KNOWN ALLERGIES [facility] GABAPENTIN [facility] LISINOPRIL [facility] NO KNOWN ALLERGIES [facility] NO KNOWN ALLERGIES Active and Recently Outpatient Medications (including Supplies): Issue Date Status Last Fill Active Outpatient Medications Refills Expiration 1) ACCU-CHEK GUIDE (GLUCOSE) TEST STRIP ACTIVE (S) Issu:01-17-23 Qty: 300 for 90 days Sig: USE 1 STRIP Refills: 3 Last:04-13-23 THREE TIMES A DAY TO CHECK BLOOD SUGAR Expr:01-18-24 -USE WITHIN 3 MINUTES OF REMOVING FROM CONTAINER 2) ACETAMINOPHEN 500MG TAB Qty: 200 for 30 ACTIVE (S) Issu:01-17-23 days Sig: TAKE TWO TABLETS BY MOUTH Refills: 11 Last:02-03-23 EVERY 8 HOURS NEEDED FOR PAIN -NOT Expr:01-18-24 TO EXCEED 4000MG IN 24 HOURS FROM ALL SOURCES 3) ALBUTEROL 90MCG (CFC-F) 200D ORAL INHL ACTIVE (S) Issu:01-17-23 Qty: 2 for 50 days Sig: INHALE 2 Refills: 3 Last:01-31-23 PUFFS BY INHALATION FOUR TIMES A DAY Expr:01-18-24 FOR SHORTNESS OF BREATH *SHAKE WELL* (FOR IMMEDIATE RELIEF) 4) ARTIFICIAL TEARS PVA 1.4%/POVIDONE (PF) ACTIVE (S) Issu:01-17-23 Qty: 30 for 30 days Sig: INSTILL 1 Refills: 3 Last:02-10-23 DROP IN BOTH EYES TWICE A DAY FOR DRY Expr:01-18-24 EYES 5) DICLOFENAC NA 1% TOP GEL Qty: 200 for ACTIVE (S) Issu:01-17-23 30 days Sig: APPLY 2 GRAMS TO LEFT Refills: 11 Last:02-09-23 HAND THREE TIMES A DAY NEEDED FOR Expr:01-18-24 ARTHRITIS PAIN -USE DOSE CARD IN BOX TO MEASURE DOSE -MAX 32 GM PER DAY 6) EMPAGLIFLOZIN 25MG TAB Qty: 90 for 90 ACTIVE (S) Issu:01-17-23 days Sig: TAKE ONE TABLET BY MOUTH Refills: 3 Last:04-11-23 EVERY DAY FOR DIABETES Expr:01-18-24 7) EZETIMIBE 10MG TAB Qty: 90 for 90 days ACTIVE (S) Issu:01-17-23 Sig: TAKE ONE TABLET BY MOUTH AT Refills: 3 Last:04-28-23 BEDTIME Expr:01-18-24 8) FAMOTIDINE 20MG TAB Qty: 180 for 90 ACTIVE (S) Issu:01-17-23 days Sig: TAKE ONE TABLET BY MOUTH Refills: 3 Last:03-21-23 TWICE A DAY TO DECREASE STOMACH ACID Expr:01-18-24 9) FEXOFENADINE HCL 180MG TAB Qty: 90 for ACTIVE (S) Issu:01-17-23 90 days Sig: TAKE ONE TABLET BY MOUTH Refills: 3 Last:04-28-23 EVERY DAY FOR ALLERGIC RHINITIS Expr:01-18-24 10) INSULIN,GLARGINE-YFGN 100UNIT/ML PEN 3ML HOLD Issu:01-17-23 Qty: 5 for 60 days Sig: INJECT 24 Refills: 4 Last:01-17-23 UNITS UNDER THE SKIN EVERY DAY FOR Expr:01-18-24 DIABETES -REFRIGERATE -DISCARD PEN 28 DAYS AFTER FIRST USE 11) KETOCONAZOLE 2% SHAMPOO Qty: 120 for 30 ACTIVE (S) Issu:01-17-23 days Sig: SHAMPOO SCALP DIRECTED Refills: 5 Last:01-17-23 THREE TIMES A WEEK Expr:01-18-24 12) LIDOCAINE 5% OINT Qty: 35 for 30 days ACTIVE (S) Issu:01-17-23 Sig: APPLY MODERATE AMOUNT TOPICALLY Refills: 3 Last:02-19-23 THREE TIMES A DAY FOR PAIN Expr:01-18-24 13) METFORMIN HCL 1000MG TAB Qty: 180 for ACTIVE (S) Issu:01-17-23 90 days Sig: TAKE ONE TABLET BY MOUTH Refills: 3 Last:04-28-23 TWICE A DAY TO DECREASE BLOOD SUGAR Expr:01-18-24 -TAKE WITH FOOD 14) METOPROLOL SUCCINATE 50MG SA TAB Qty: ACTIVE (S) Issu:01-17-23 180 for 90 days Sig: TAKE ONE TABLET Refills: 3 Last:01-17-23 BY MOUTH TWICE A DAY FOR HEART RHYTHM Expr:01-18-24 (WHOLE TABLET REQUESTED) 15) MOMETASONE FUROATE 50MCG 120D NASAL SUSP ACTIVE (S) Issu:01-17-23 Qty: 3 for 90 days Sig: SPRAY 2 Refills: 2 Last:02-14-23 SPRAYS IN EACH NOSTRIL EVERY DAY FOR Expr:01-18-24 RHINITIS (RUNNY NOSE) 16) MULTIVITAMIN CAP/TAB Qty: 100 for 90 ACTIVE (S) Issu:01-17-23 days Sig: TAKE 1 TABLET BY MOUTH Refills: 3 Last:04-28-23 EVERY DAY Expr:01-18-24 17) NEEDLE,PEN 29G,12MM Qty: 200 for 90 ACTIVE (S) Issu:01-17-23 days Sig: USE 1 NEEDLE DIRECTED Refills: 3 Last:04-13-23 *DISPOSE OF IN A HARD-PLASTIC Expr:01-18-24 CONTAINER WITH A SCREW-ON LID CONTACT GARBAGE HAULER FOR PROPER DISPOSAL 18) NITROGLYCERIN 0.4MG SL TAB Qty: 100 for ACTIVE (S) Issu:01-17-23 30 days Sig: DISSOLVE ONE TABLET Refills: 11 Last:02-19-23 UNDER THE TONGUE NEEDED FOR CHEST Expr:01-18-24 PAIN -MAY REPEAT EVERY 5 MINUTES -NO MORE THAN 3 TOTAL. IF NO RELIEF AFTER 3 DOSES SEEK MEDICAL ATTENTION 19) PANTOPRAZOLE NA 40MG EC TAB Qty: 180 ACTIVE (S) Issu:08-04-22 for 90 days Sig: TAKE ONE TABLET BY Refills: 1 Last:04-10-23 MOUTH TWICE A DAY TO DECREASE STOMACH Expr:08-05-23 ACID -TAKE ON AN EMPTY STOMACH, AT LEAST ONE-HALF HOUR BEFORE EATING 20) PRAMIPEXOLE DIHYDROCHLORIDE 0.25MG TAB ACTIVE (S) Issu:01-17-23 Qty: 30 for 30 days Sig: TAKE ONE Refills: 11 Last:02-26-23 TABLET BY MOUTH AT BEDTIME FOR Expr:01-18-24 RESTLESS LEGS SYNDROME FOR RESTLESS LEGS 21) PREGABALIN 150MG ORAL CAP Qty: 30 for ACTIVE (S) Issu:01-17-23 30 days Sig: TAKE ONE CAPSULE BY Refills: 5 Last:01-21-23 MOUTH AT BEDTIME FOR PAIN IN Expr:07-20-23 ADDITIONAL TO YOUR PREGABALIN 75MG TWICE DAILY DOSE DIRECTED. 22) PREGABALIN 75MG ORAL CAP Qty: 60 for 30 ACTIVE (S) Issu:01-17-23 days Sig: TAKE ONE CAPSULE BY MOUTH Refills: 5 Last:01-29-23 TWICE A DAY FOR PAIN FOR PERIPHERAL Expr:07-20-23 NEUROPATHY. 23) PSYLLIUM ORAL PWD Qty: 390 for 90 days ACTIVE (S) Issu:01-17-23 Sig: TAKE 1 TABLESPOONFUL BY MOUTH Refills: 3 Last:01-17-23 TWICE A DAY FOR REGULAR BOWEL Expr:01-18-24 MOVEMENTS MIX WITH 8 OUNCES WATER OR JUICE 24) RIVAROXABAN 10MG TAB Qty: 90 for 90 ACTIVE Issu:04-28-22 days Sig: TAKE ONE TABLET BY MOUTH Refills: 2 Last:01-01-23 EVERY EVENING TO PREVENT BLOOD CLOTS Expr:04-29-23 25) SEMAGLUTIDE 1MG/0.75ML INJ PEN 3ML Qty: HOLD Issu:01-17-23 1 for 28 days Sig: INJECT 1MG UNDER Refills: 3 Last:01-17-23 THE SKIN EVERY WEEK FOR DIABETES AND Expr:01-18-24 WEIGHT LOSS -MULTIPLE DOSES PER PEN 26) SIMETHICONE 80MG CHEW TAB Qty: 400 for ACTIVE (S) Issu:01-17-23 90 days Sig: CHEW ONE TABLET BY MOUTH Refills: 3 Last:02-26-23 FOUR TIMES A DAY FOR GAS Expr:01-18-24 27) SODIUM CHLORIDE 1GM TAB Qty: 200 for 90 ACTIVE (S) Issu:01-17-23 days Sig: TAKE ONE TABLET BY MOUTH Refills: 3 Last:04-11-23 TWICE A DAY Expr:01-18-24 28) SUCRALFATE 500MG/5ML SUSP Qty: 1260 for ACTIVE (S) Issu:01-17-23 30 days Sig: TAKE 10 ML (2 Refills: 1 Last:01-17-23 TEASPOONSFUL) BY MOUTH FOUR TIMES A Expr:01-18-24 DAY NEEDED FOR GERD (ACID REFLUX) -TAKE ON AN EMPTY STOMACH -SHAKE WELL BEFORE USE 29) TAMSULOSIN HCL 0.4MG CAP Qty: 90 for 90 ACTIVE (S) Issu:01-17-23 days Sig: TAKE ONE CAPSULE BY MOUTH Refills: 3 Last:04-28-23 EVERY DAY FOR BENIGN PROSTATIC Expr:01-18-24 HYPERTROPHY (BPH) 30) TRIAMCINOLONE ACETONIDE 0.1% CREAM Qty: ACTIVE (S) Issu:01-17-23 80 for 30 days Sig: APPLY THIN LAYER Refills: 11 Last:02-20-23 TOPICALLY TWICE A DAY AVOID Expr:01-18-24 FACE,GROIN & ARMPITS *FOR EXTERNAL USE ONLY FOR ECZEMA Issue Date Status Last Fill Pending Outpatient Medications Refills Expiration 1) PANTOPRAZOLE NA 40MG EC TAB Qty: 180 PENDING Sig: TAKE ONE TABLET BY MOUTH TWICE A Refills: 0 DAY TO DECREASE STOMACH ACID -TAKE ON AN EMPTY STOMACH, AT LEAST ONE-HALF HOUR BEFORE EATING Issue Date Status Last Fill Inactive Outpatient Medications Refills Expiration 1) ACCU-CHEK GUIDE (GLUCOSE) TEST STRIP DISCONTINUED Issu:10-18-22 Qty: 300 for 90 days Sig: USE 1 STRIP Refills: 2 Last:01-11-23 THREE TIMES A DAY TO CHECK BLOOD SUGAR Expr:10-19-23 -USE WITHIN 3 MINUTES OF REMOVING FROM CONTAINER 2) ACETAMINOPHEN 500MG TAB Qty: 200 for 30 DISCONTINUED Issu:04-28-22 days Sig: TAKE TWO TABLETS BY MOUTH Refills: 3 Last:01-04-23 EVERY 8 HOURS NEEDED FOR PAIN -NOT Expr:04-29-23 TO EXCEED 4000MG IN 24 HOURS FROM ALL SOURCES 3) ALBUTEROL 90MCG (CFC-F) 200D ORAL INHL DISCONTINUED Issu:07-24-22 Qty: 2 for 50 days Sig: INHALE 2 Refills: 0 Last:12-12-22 PUFFS BY INHALATION FOUR TIMES A DAY Expr:07-25-23 FOR SHORTNESS OF BREATH *SHAKE WELL* (FOR IMMEDIATE RELIEF) 4) ARTIFICIAL TEARS PVA 1.4%/POVIDONE (PF) DISCONTINUED Issu:10-18-22 Qty: 30 for 30 days Sig: INSTILL 1 Refills: 0 Last:01-11-23 DROP IN BOTH EYES TWICE A DAY FOR DRY Expr:10-19-23 EYES 5) DICLOFENAC NA 1% TOP GEL Qty: 200 for DISCONTINUED Issu:04-28-22 30 days Sig: APPLY 2 GRAMS TO LEFT Refills: 3 Last:01-04-23 HAND THREE TIMES A DAY NEEDED FOR Expr:04-29-23 ARTHRITIS PAIN -USE DOSE CARD IN BOX TO MEASURE DOSE -MAX 32 GM PER DAY 6) DIPHENHYDRAMINE HCL 25MG CAP Qty: 90 DISCONTINUED Issu:02-01-22 for 90 days Sig: TAKE ONE CAPSULE BY Refills: 1 Last:07-24-22 MOUTH AT BEDTIME NEEDED FOR Expr:02-02-23 ALLERGIES 7) EMPAGLIFLOZIN 25MG TAB Qty: 90 for 90 DISCONTINUED Issu:10-18-22 days Sig: TAKE ONE TABLET BY MOUTH Refills: 2 Last:01-11-23 EVERY DAY FOR DIABETES Expr:10-19-23 8) EMPAGLIFLOZIN 25MG TAB Qty: 45 for 90 DISCONTINUED Issu:03-03-22 days Sig: TAKE ONE-HALF TABLET BY (EDIT) Last:03-03-22 MOUTH EVERY DAY FOR DIABETES Refills: 3 Expr:03-04-23 9) EZETIMIBE 10MG TAB Qty: 90 for 90 days DISCONTINUED Issu:10-18-22 Sig: TAKE ONE TABLET BY MOUTH AT Refills: 2 Last:01-28-23 BEDTIME Expr:10-19-23 10) FAMOTIDINE 20MG TAB Qty: 180 for 90 DISCONTINUED Issu:10-18-22 days Sig: TAKE ONE TABLET BY MOUTH Refills: 3 Last:12-31-22 TWICE A DAY TO DECREASE STOMACH ACID Expr:10-19-23 11) FAMOTIDINE 20MG TAB Qty: 90 for 90 days DISCONTINUED Issu:11-11-21 Sig: TAKE ONE TABLET BY MOUTH EVERY (EDIT) Last:01-23-22 DAY NEEDED TO DECREASE STOMACH ACID Refills: 3 Expr:11-12-22 12) FEXOFENADINE HCL 180MG TAB Qty: 90 for DISCONTINUED Issu:10-18-22 90 days Sig: TAKE ONE TABLET BY MOUTH Refills: 2 Last:01-28-23 EVERY DAY FOR ALLERGIC RHINITIS Expr:10-19-23 13) INSULIN,GLARGINE 100 UNT/ML 3ML SOLOSTAR DISCONTINUED Issu:05-19-22 Qty: 5 for 88 days Sig: INJECT 26 (EDIT) Last:06-26-22 UNITS UNDER THE SKIN EVERY DAY FOR Refills: 5 Expr:05-20-23 DIABETES FOR DIABETES -REFRIGERATE -DISCARD PEN 28 DAYS AFTER FIRST USE 14) INSULIN,GLARGINE 100 UNT/ML 3ML SOLOSTAR DISCONTINUED Issu:03-03-22 Qty: 5 for 88 days Sig: INJECT 16 Refills: 4 Last:03-03-22 UNITS UNDER THE SKIN EVERY DAY FOR Expr:03-04-23 DIABETES FOR DIABETES -REFRIGERATE -DISCARD PEN 28 DAYS AFTER FIRST USE 15) INSULIN,GLARGINE 100 UNT/ML 3ML SOLOSTAR DISCONTINUED Issu:02-13-22 Qty: 20 for 88 days Sig: INJECT 16 Refills: 4 Last:02-13-22 UNITS UNDER THE SKIN TWICE A DAY FOR Expr:02-14-23 DIABETES -REFRIGERATE -DISCARD PEN 28 DAYS AFTER FIRST USE 16) INSULIN,GLARGINE 100 UNT/ML 3ML SOLOSTAR DISCONTINUED Issu:12-20-21 Qty: 20 for 88 days Sig: INJECT 34 (EDIT) Last:02-07-22 UNITS UNDER THE SKIN TWICE A DAY FOR Refills: 3 Expr:12-21-22 DIABETES -REFRIGERATE -DISCARD PEN 28 DAYS AFTER FIRST USE 17) INSULIN,GLARGINE-YFGN 100UNIT/ML PEN 3ML DISCONTINUED Issu:07-13-22 Qty: 5 for 60 days Sig: INJECT 24 Refills: 2 Last:02-01-23 UNITS UNDER THE SKIN EVERY DAY FOR Expr:07-14-23 DIABETES -REFRIGERATE -DISCARD PEN 28 DAYS AFTER FIRST USE 18) ISOSORBIDE MONONITRATE 30MG SA TAB Qty: DISCONTINUED Issu:04-14-22 45 for 90 days Sig: TAKE ONE-HALF Refills: 3 Last:04-14-22 TABLET BY MOUTH EVERY DAY FOR CHEST Expr:04-15-23 PAIN 19) ISOSORBIDE MONONITRATE 30MG SA TAB Qty: DISCONTINUED Issu:02-01-22 90 for 90 days Sig: TAKE ONE TABLET (EDIT) Last:02-22-22 BY MOUTH EVERY DAY Refills: 3 Expr:02-02-23 20) ISOSORBIDE MONONITRATE 30MG SA TAB Qty: DISCONTINUED Issu:11-09-21 90 for 90 days Sig: TAKE ONE TABLET Refills: 2 Last:01-29-22 BY MOUTH EVERY DAY Expr:11-10-22 21) KETOCONAZOLE 2% SHAMPOO Qty: 120 for 30 DISCONTINUED Issu:07-13-22 days Sig: SHAMPOO SCALP DIRECTED Refills: 0 Last:12-01-22 THREE TIMES A WEEK Expr:07-14-23 22) LIDOCAINE 5% OINT Qty: 35 for 30 days DISCONTINUED Issu:10-18-22 Sig: APPLY MODERATE AMOUNT TOPICALLY Refills: 0 Last:01-20-23 THREE TIMES A DAY FOR PAIN Expr:10-19-23 23) METFORMIN HCL 1000MG TAB Qty: 180 for DISCONTINUED Issu:10-18-22 90 days Sig: TAKE ONE TABLET BY MOUTH Refills: 2 Last:01-28-23 TWICE A DAY TO DECREASE BLOOD SUGAR Expr:10-19-23 -TAKE WITH FOOD 24) METFORMIN HCL 500MG TAB Qty: 180 for 90 DISCONTINUED Issu:02-01-22 days Sig: TAKE ONE TABLET BY MOUTH (EDIT) Last:04-29-22 TWICE A DAY TO DECREASE BLOOD SUGAR Refills: 3 Expr:02-02-23 -TAKE WITH FOOD 25) METFORMIN HCL 500MG TAB Qty: 180 for 90 DISCONTINUED Issu:11-09-21 days Sig: TAKE ONE TABLET BY MOUTH Refills: 2 Last:01-29-22 TWICE A DAY TO DECREASE BLOOD SUGAR Expr:11-10-22 -TAKE WITH FOOD 26) METOPROLOL SUCCINATE 25MG SA TAB Qty: DISCONTINUED Issu:11-30-21 90 for 90 days Sig: TAKE ONE TABLET (EDIT) Last:12-05-21 BY MOUTH EVERY DAY (WHOLE TABLET Refills: 3 Expr:12-01-22 REQUESTED) 27) METOPROLOL SUCCINATE 50MG SA TAB Qty: DISCONTINUED Issu:10-18-22 90 for 90 days Sig: TAKE ONE TABLET (EDIT) Last:01-10-23 BY MOUTH EVERY DAY (WHOLE TABLET Refills: 3 Expr:10-19-23 REQUESTED) 28) METOPROLOL SUCCINATE 50MG SA TAB Qty: DISCONTINUED Issu:01-24-22 90 for 90 days Sig: TAKE ONE TABLET Refills: 0 Last:10-12-22 BY MOUTH EVERY DAY (WHOLE TABLET Expr:01-25-23 REQUESTED) 29) MOMETASONE FUROATE 50MCG 120D NASAL SUSP DISCONTINUED Issu:07-13-22 Qty: 3 for 90 days Sig: SPRAY 2 Refills: 1 Last:11-16-22 SPRAYS IN EACH NOSTRIL EVERY DAY FOR Expr:07-14-23 RHINITIS (RUNNY NOSE) 30) MULTIVITAMIN CAP/TAB Qty: 100 for 90 DISCONTINUED Issu:10-18-22 days Sig: TAKE 1 TABLET BY MOUTH Refills: 2 Last:01-28-23 EVERY DAY Expr:10-19-23 31) NEEDLE,PEN 29G,12MM Qty: 200 for 90 DISCONTINUED Issu:10-18-22 days Sig: USE 1 NEEDLE DIRECTED Refills: 2 Last:01-11-23 *DISPOSE OF IN A HARD-PLASTIC Expr:10-19-23 CONTAINER WITH A SCREW-ON LID CONTACT GARBAGE HAULER FOR PROPER DISPOSAL 32) NITROGLYCERIN 0.4MG SL TAB Qty: 100 for DISCONTINUED Issu:08-21-22 30 days Sig: DISSOLVE ONE TABLET Refills: 7 Last:01-20-23 UNDER THE TONGUE NEEDED FOR CHEST Expr:08-22-23 PAIN -MAY REPEAT EVERY 5 MINUTES -NO MORE THAN 3 TOTAL. IF NO RELIEF AFTER 3 DOSES SEEK MEDICAL ATTENTION 33) PANTOPRAZOLE NA 40MG EC TAB Qty: 180 DISCONTINUED Issu:02-01-22 for 90 days Sig: TAKE ONE TABLET BY (EDIT) Last:07-24-22 MOUTH TWICE A DAY TO DECREASE STOMACH Refills: 1 Expr:02-02-23 ACID -TAKE ON AN EMPTY STOMACH, AT LEAST ONE-HALF HOUR BEFORE EATING 34) PANTOPRAZOLE NA 40MG EC TAB Qty: 90 for DISCONTINUED Issu:11-09-21 90 days Sig: TAKE ONE TABLET BY MOUTH (EDIT) Last:01-14-22 EVERY DAY TO DECREASE STOMACH ACID Refills: 3 Expr:11-10-22 -TAKE ON AN EMPTY STOMACH, AT LEAST ONE-HALF HOUR BEFORE EATING 35) PRAMIPEXOLE DIHYDROCHLORIDE 0.25MG TAB DISCONTINUED Issu:07-13-22 Qty: 30 for 30 days Sig: TAKE ONE Refills: 5 Last:01-27-23 TABLET BY MOUTH AT BEDTIME FOR Expr:07-14-23 RESTLESS LEGS SYNDROME FOR RESTLESS LEGS 36) PRAMIPEXOLE DIHYDROCHLORIDE 0.25MG TAB DISCONTINUED Issu:04-28-22 Qty: 60 for 30 days Sig: TAKE ONE (EDIT) Last:07-15-22 TABLET BY MOUTH TWICE A DAY FOR Refills: 9 Expr:04-29-23 RESTLESS LEGS 37) PREGABALIN 150MG ORAL CAP Qty: 30 for DISCONTINUED Issu:07-13-22 30 days Sig: TAKE ONE CAPSULE BY Refills: 0 Last:12-22-22 MOUTH AT BEDTIME FOR PAIN IN Expr:01-13-23 ADDITIONAL TO YOUR PREGABALIN 75MG TWICE DAILY DOSE DIRECTED. 38) PREGABALIN 75MG ORAL CAP Qty: 60 for 30 DISCONTINUED Issu:07-13-22 days Sig: TAKE ONE CAPSULE BY MOUTH Refills: 0 Last:12-30-22 TWICE A DAY FOR PAIN FOR PERIPHERAL Expr:01-13-23 NEUROPATHY. 39) SEMAGLUTIDE 1MG/0.75ML INJ PEN 3ML Qty: DISCONTINUED Issu:07-24-22 1 for 28 days Sig: INJECT 1MG UNDER Refills: 0 Last:12-02-22 THE SKIN EVERY WEEK FOR DIABETES AND Expr:07-25-23 WEIGHT LOSS -MULTIPLE DOSES PER PEN 40) SIMETHICONE 80MG CHEW TAB Qty: 400 for DISCONTINUED Issu:10-18-22 90 days Sig: CHEW ONE TABLET BY MOUTH Refills: 3 Last:12-08-22 FOUR TIMES A DAY FOR GAS Expr:10-19-23 41) SIMETHICONE 80MG CHEW TAB Qty: 100 for DISCONTINUED Issu:02-01-22 30 days Sig: CHEW ONE TABLET BY MOUTH Refills: 1 Last:02-22-22 FOUR TIMES A DAY NEEDED FOR Expr:02-02-23 FLATULENCE (GASSINESS/BLOATING) 42) SODIUM CHLORIDE 1GM TAB Qty: 200 for 90 DISCONTINUED Issu:10-18-22 days Sig: TAKE ONE TABLET BY MOUTH Refills: 2 Last:01-11-23 TWICE A DAY Expr:10-19-23 43) SUCRALFATE 500MG/5ML SUSP Qty: 420 for DISCONTINUED Issu:10-18-22 10 days Sig: TAKE 10 ML (2 Refills: 0 Last:12-10-22 TEASPOONSFUL) BY MOUTH FOUR TIMES A Expr:10-19-23 DAY NEEDED FOR GERD (ACID REFLUX) -TAKE ON AN EMPTY STOMACH -SHAKE WELL BEFORE USE 44) TAMSULOSIN HCL 0.4MG CAP Qty: 90 for 90 DISCONTINUED Issu:10-18-22 days Sig: TAKE ONE CAPSULE BY MOUTH Refills: 2 Last:01-28-23 EVERY DAY FOR BENIGN PROSTATIC Expr:10-19-23 HYPERTROPHY (BPH) 45) TRIAMCINOLONE ACETONIDE 0.1% CREAM Qty: DISCONTINUED Issu:02-01-22 80 for 30 days Sig: APPLY THIN LAYER Refills: 0 Last:01-21-23 TOPICALLY TWICE A DAY AVOID Expr:02-02-23 FACE,GROIN & ARMPITS *FOR EXTERNAL USE ONLY FOR ECZEMA 76 Total Medications PHYSICAL EXAM VS: Temp: 98.2 F [36.8 C] (01/17/2023 10:52) BP: 110/69 (01/17/2023 10:52) Pulse:73 (01/17/2023 10:52) Resp: 16 (01/17/2023 10:52) Pain: 3 (01/17/2023 10:52) Weight: WEIGHTS IN LAST 6 MONTHS: 208.7 (JAN 17, 2023@10:52:05) General: Sitting in exam room, no acute distress Pulmonary: Clear to auscultation bilaterally, nonlabored breathing Cardiovascular: Regular rate and rhythm, no extra sounds Extremities: No lower extremity edema Abdomen: Nontender, nondistended Gait: Able to stand from chair without assist, gait is normal Skin: 3 mm scab right ear syed LABS and STUDIES PROSTATE SPECIFIC ANTIGEN: 7.27 H HGB A1C: 6.7 H GLUCOSE: 276 H UREA NITROGEN: 24 CREATININE: 1.2 SODIUM: 141 POTASSIUM: 4.7 CHLORIDE: 106 CO2: 25 CALCIUM: 9.4 CHOLESTEROL: 133 MAGNESIUM: 1.7 HDL: 34 L ANION GAP: 10 LDL CHOL: 57 VLDL CHOL: 42 H NON HDL CHOLESTEROL: 99 TRIG(NON FASTING): 210 H CREATININE EGFR (CKD-EPI): 62 /gris DUMONT MD PHYSICIAN, [facility] Signed: 01/17/2023 14:30 01/17/2023 ADDENDUM STATUS: COMPLETED OK to fill pregabalin x4 for his travel this winter. /gris DUMONT MD PHYSICIAN, [facility] Signed: 01/17/2023 14:30 JI DUMONT [facility]
--- OUTSIDE RECORDS SUMMARY | 2023-10-08 12:22 | XMS_ITS | Encounter Summary ---
Author Name [facility] [place] [facility] [place] [facility] [place] [facility] [place] Address [address] [place] [address] Care Team Providers Care Biology Intern Name Role Phone JI DUMONT Primary Care [...] Ochoa's Name Patient's Relationship to Policy Ochoa [facility] [place] MEDICARE ADVANTAGE [facility] ([place]) Mar 12, 2015 [id number] BARRY GONZALEZ [facility] ([place] MEDICARE ADVANTAGE [facility] Mar 12, 2015 [id number] [phone] BARRY GONZALEZ [facility] ([place] MEDICARE ADVANTAGE [facility] ([place] Mar 12, 2015 [id number] [phone] JUSTYNAPAMELABARRY PATEL PATIENT [facility] RETIREE PLATI NUM BLUE COMPL E Mar 12, 2016 [id number] [facility]ABARRY [facility] MEDICARE ADVANTAGE [facility] ([place]) Mar 12, 2015 [id number] BARRY GONZALEZ PATIENT MEDICARE ([place]) MEDICARE (M) PART A Mar 12, 2000 PART A [id number] BARRY GONZALEZ PATIENT Selected Encounter This section includes the information on record at [place] for the Encounter. Date/Time Encounter Type Encounter Description Reason Pro vider Source Apr 18, 2023 11:58 AM Outpatient Encounter ADMIN PAT ACTIVTIES ([facility]) I[facility] Encounter Template Text not used by [place] Plan of Treatment: Future Appointments (+ 6 months) and Future Tests (+/- 45 days) The Plan of Treatment section includes future care activities for the patient from all [place] [facility] This section includes future appointments and future orders which are active, pending or scheduled. Future Appointments This section includes appointments that were scheduled to occur 6 months from the date of the Encounter, up to a maximum of 20 appointments. The data comes from all [place] treatment facilities. Appointment Date/Time Appointment Type Appointme nt Facility Name May 07, 2023 09:00 AM AMBULATORY - MEDICINE [facility] May 07, 2023 12:00 PM [facility] - SURG[facility] Jun 21, 2023 10:00 AM AMBULATORY - NONE [facility] Aug 20, 2023 09:30 AM AMBULATORY - MEDICINE [facility] Aug 21, 2023 11:00 AM AMBULATORY - NONE [facility] Aug 27, 2023 10:00 AM AMBULATORY - NONE [facility] Aug 27, 2023 11:00 AM AMBULATORY - REHAB [facility]ICIN E [facility] Aug 28, 2023 02:10 PM AMBULATORY - NONE [facility] Advance Directives: All historical and current Section Date Range: From patient's date of to the date document was created. This section includes ALL of a patient's completed or amended [place] Advance and Rescinded Directives. The entries below indicate that a directive exists for the patient, but an actual copy is not included with this document. The data comes from all [facility]. Date Advance Directives Provider Source Aug 13, 2014 [facility] Aug 13, 2014 ADVANCE DIRECTIVE DISCUSSION VANDANA MAURICE [facility] May 06, 2007 ADVANCE DIRECTIVE MAYITO PIERRE [facility] Encounter Notes: All associated encounter notes This section contains the clinical notes associated to the Encounter. Date/Time Encounter Note(s) Provider Source Apr 18, 2023 12:04 PM CONSULT: LOCAL TITLE: TRAVELING UNVIERSAL CONSULT RESULTS STANDARD TITLE: CONSULT DATE OF NOTE: APR 18, 2023@12:04 ENTRY DATE: APR 18, 2023@12:05:01 AUTHOR: SHANNON SRIVASTAVA EXP COSIGNER: URGENCY: STATUS: COMPLETED TRAVELING UNVIERSAL CONSULT RESULTS Has ADDENDA Traveling consult received from [facility] with request for Urology. A [facility] Urology consult has been placed for the Traveling [place] and the Clinic will assist with scheduling or determine Counts Include [facility] Care eligibility, if approved. /valarie/ Boby Srivastava MSN, HODAN, beater room supervisor [place] Coordinator Signed: 04/18/2023 12:05 05/15/2023 ADDENDUM STATUS: COMPLETED LOCAL TITLE: UROLOGY CONSULT STANDARD TITLE: UROLOGY CONSULT DATE OF NOTE: MAY 07, 2023@11:19 ENTRY DATE: MAY 07, 2023@11:19:52 AUTHOR: MANOLO PATTERSON EXP COSIGNER: DWIGHT KIRBY URGENCY: STATUS: COMPLETED UROLOGY CONSULT Has ADDENDA Urology Clinic Consult Note CC: BPH w/LUTS HPI: Pt is a 77 yo male with [place] 4+3 prostate cancer who has plans to undergo radiation with ADT (starting 06/2023, Lupron for 6 mo given 03/2023) has been seeing [facility] in [place]. Patient had a TURP with [place] 04/20/23. He complains of UTI sx for about 10 days including perineal soreness, white milky urine that transitions to bobby/brown colored urine, foul smelling urine, UUI, dysuria, daytime frequency, NF 6-10x. Denies fever/chills/body aches. Denies bright red hematuria. Patient had a urine culture with [place] and was found to have Klebsiella Pneumoniae >100k 05/04/23 blood sensitivities are still pending. Patient presented to clinic with . PMHx: BPH, prostate cancer SurgHx: SURGERIES - NONE FOUND SHx: Quit tobacco 20+ years ago, Neg alcohol, Neg illicit drug, at [facility] FHx: unsure if father had prostate cancer Urology Meds: flomax 0.8mg Allergies: Patient has answered NKA ROS: as mentioned in the HPI PE: General: Well-developed, well-nourished male in no acute distress HEENT: Normocephalic, atraumatic Neck: Supple, trachea midline Chest/Lungs: Non-labored respirations ABD: soft, nontender, no masses Back: No CVAT EXT: - C/C/E NEURO: A, OX3, interacting appropriately IMAGES: PET Scan [place] 02/06/2023 EXAM: PET CT SKULL TO THIGH PSMA COMPARISON: MR prostate 01/19/2023 INDICATION: Recently diagnosed [place] 4+3 prostate adenocarcinoma. Initial treatment strategy. The patient reports no recent vaccinations. FINDINGS: Focal increased PSMA uptake in the left posterolateral peripheral zone at the mid gland to apex with a SUV max of 9.4 compatible with recently diagnosed prostate adenocarcinoma. No PSMA avid lymph nodes. No suspicious osseous lesions. Significant incidental findings on low-dose unenhanced CT fusion images: Mild bilateral maxillary sinus mucosal thickening. Scattered arterial calcifications, including moderate coronary artery calcifications. Mild gynecomastia. Cholecystectomy. Right renal cyst. Colonic diverticulosis. Appendectomy. Small fat-containing umbilical hernia. Scattered mild musculoskeletal degenerative changes. RADIOPHARMACEUTICAL/MEDS: Route: intravenous piflufolastat F 18 injection (PYLARIFY F-18),9.7 millicurie IMPRESSION: Focal PSMA uptake in the left posterolateral peripheral zone at the mid gland to apex of the prostate gland compatible with recently diagnosed adenocarcinoma. No evidence for PSMA avid metastatic disease. [place] Prostate MRI 01/19/2023 EXAM: MR PROSTATE WITHOUT AND WITH IV CONTRAST CLINICAL HISTORY: Elevated PSA. Change and urinary symptoms. Most Recent PSA 13.1 ng/mL. Prior PSA from July 2020 measuring 4.3 ng/mL. COMPARISON: No prior MRI. CT imaging of April 15, 2021 and October 24, 2018 reviewed. PROSTATE: Volume: 43.0cc (PSA density 0.30) Exam quality: Good. Peripheral zone: Focal findings, as below Transition zone: Heterogeneous multinodular transitional zone. Lesion # 1 Size: 1.2 x 1.0 x 0.9cm, 0.70cc Zone: Peripheral zone Location: Left posterior medial at apex. (Series 3 image 18) T2WI: Circumscribed, homogenous moderate hypointense focus/mass confined to prostate and <1.5 cm in greatest dimension (T2WI score 4) DWI: Marked diffusion restriction. (ADC: 502, Focal markedly hypointense on ADC and markedly hyperintense on high b-value DWI; <1.5cm in greatest dimension) (DWI score 4) DCE: Positive. Focal, and; earlier than or contemporaneously with enhancement of adjacent normal prostatic tissues, and; corresponds to suspicious finding on T2W and/or DWI Overall category: PIRADS 4- High (clinically significant cancer is likely to be present). Lesion # 2 Size: 1.2 x 0.6 x 0.9cm, 0.39cc Zone: Peripheral zone Location: Left posterior lateral at midgland. (Series 3/15; series 6/15) T2WI: Heterogeneous signal intensity (T2WI score 3) DWI: Moderate diffusion restriction. (ADC: 641, Focal markedly hypointense on ADC and markedly hyperintense on high b-value DWI; <1.5cm in greatest dimension) (DWI score 4) DCE: Positive. Focal, and; earlier than or contemporaneously with enhancement of adjacent normal prostatic tissues, and; corresponds to suspicious finding on T2W and/or DWI Overall category: PIRADS 4- High (clinically significant cancer is likely to be present). LOCAL STAGING: Capsule: Indeterminate Neurovascular bundle invasion: Absent Seminal vesicles invasion: Absent Other organ invasion: Absent LYMPH NODES: Negative for suspicious lymph node(s). BONES: Negative for suspicious bone lesion(s). Nonspecific heterogeneous marrow enhancement without focal suspicious lesion. OTHER FINDINGS: Sigmoid diverticulosis. Small fat-containing periumbilical hernia. Chronic multilevel lumbar hypertrophic facet arthropathy with degenerative disc disease. PROSTATE MRI TECHNIQUE: Multiparametric MRI of the prostate was performed at [address] with surface coil. High resolution T2WI, DWI/ADC, and DCE imaging with IV contrast performed. IMPRESSION: PIRADS 4- High (clinically significant cancer is likely to be present). 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 1.Prostate cancer 2.Urinary tract infection 3.BPH w/LUTS -Encourage patient to stay with 1 care team. His goal for this appointment was [facility]. Educated patient that outside care teams [facility]. -Patient will follow up with [place] regarding urine culture sensitivity so that he may be appropriately treated with ABX -discussed ER precuations for fever >100.4, flank pain, hematuria, chills -f/u PRN Discussed in depth with pt diagnosis and treatment plan. Pt understands the risks/benefits of the treatment plan and agrees All questions answered. Case also reviewed by the Physician I have seen and discussed the patient with my supervising practitioner Dr. Kirby, who agrees with my assessment and plan. The supervising practitioner of record for this patient care encounter is Dr. Kirby. /valarie/ MANOLO PATTERSON NURSE PRACTITIONER Signed: 05/07/2023 12:50 /valarie/ DWIGHT KIRBY DO SURGEON Cosigned: 05/08/2023 10:27 Receipt Acknowledged By: 05/08/2023 09:53 /valarie/ OLEAN NIX RN 05/07/2023 13:00 /valarie/ NELSON TRUONG Urology RN, Component Overhaul Operator 05/08/2023 ADDENDUM STATUS: COMPLETED seen/examined. agree w/ a/p. f/u PRN. /valarie/ DWIGHT KIRBY DO SURGEON Signed: 05/08/2023 10:28 /valarie/ Boby Srivastava, MSN, HODAN, beater room supervisor [place] Coordinator Signed: 05/15/2023 13:46 SHANNON SRIVASTAVA [facility]
--- OUTSIDE RECORDS SUMMARY | 2023-10-08 12:23 | XMS_ITS | Encounter Summary ---
Author Name [facility] [place] [facility] [place] Address [address] [place] [address] Care Team Providers Care Vice President Of Finance Name Role Phone EDDIE DUMONT Primary Care Provider Unavailabl e Insurance [...] Ochoa's Name Patient's Relationship to Policy Ochoa [facility] (R) MEDICARE ADVANTAGE [facility] ([facility]) Mar 12, 2015 [id number] BARRY GONZALEZ [facility] ([facility]) MEDICARE ADVANTAGE [facility] ([facility]) Mar 12, 2015 [id number] [phone] BARRY GONZALEZ PATIENT [facility] ([facility]) MEDICARE ADVANTAGE [facility] BONNIE LENNONIV IDU Mar 12, 2015 [id number] [phone] JUSTYNAANGELABARRY PATIENT [facility]UE [facility] RETIREE PLATI NUM BLUE COMPL E Mar 12, 2016 [id number] [phone] LISABARRY [facility] ([facility]) MEDICARE ADVANTAGE [facility] (WNR) Mar 12, 2015 [id number] BARRY GONZALEZ PATIENT MEDICARE (WNR) MEDICARE (M) PART A Mar 12, 2000 PART A [id number] BARRY GONZALEZ PATIENT Selected Encounter This section includes the information on record at [place] for the Encounter. Date/Time Encounter Type Encounter Description Reason Provider Source May 07, 2023 09:00 AM OFFICE O/P EST MOD 30 MIN PRIMARY CARE/MEDICINE ICD-10-CM E11.9 Type 2 diabetes mellitus without complications EDDIE DUMONT [facility] Encounter Template Text not used by [place] Assessments - Encounter Diagnoses This section includes the primary and secondary diagnoses documented for the Encounter. Date/Time Primary/Secondary Diagnosis Diagnosis Name Provider Source May 07, 2023 09:35 AM PRIMARY Type 2 diabetes mellitus without complications EDDIE DUMONT [facility] May 07, 2023 09:35 AM SECONDARY Urinary tract infection, site not specified EDDIE DUMONT [facility] Plan of Treatment: Future Appointments (+ 6 months) and Future Tests (+/- 45 days) The Plan of Treatment section includes future care activities for the patient [facility] [place] [facility] This section includes future appointments and future orders which are active, pending or scheduled. Future Appointments This section includes appointments that were scheduled to occur 6 months from the date of the Encounter, up to a maximum of 20 appointments. The data comes from all [place] treatment facilities. Appointment Date/Time Appointment Type Appointme nt Facility Name Jun 21, 2023 10:00 AM AMBULATORY - NONE [facility] Aug 20, 2023 09:30 AM AMBULATORY - MEDICINE [facility] Aug 21, 2023 11:00 AM AMBULATORY - NONE [facility] Aug 27, 2023 10:00 AM [facility] Aug 27, 2023 11:00 AM AMBULATORY - REHAB MEDICIN E [facility] Aug 28, 2023 02:10 PM [facility] Social History: Smoking Status (Most current) and Tobacco Use (All prior to encounter date) This section includes the most current, and the historical, smoking and tobacco- related health factors from the [facility] facility where the Encounter took place. Current Smoking Status This section includes the most current smoking, or tobacco-related health factor, from the [place] facility where the Encounter took place. Date/Time Current Smoking Status Comment Facil ity Jan 17, 2023 10:45 AM VA-TOBACCO FORMER USER [facility] Tobacco Use History This section includes a history of the smoking, or tobacco-related health factors, that were collected on or before the date of the Encounter. The data comes from the [place] facility where the Encounter took place. Date/Time Smoking Status/Tobacco Use Comment F acility Jan 17, 2023 10:45 AM VA-TOBACCO QUIT 15 YRS OR MORE [facility] Feb 01, 2022 10:15 AM VA-TOBACCO FORMER USER [facility] Feb 01, 2022 10:15 AM VA-TOBACCO QUIT 15 YRS OR MORE [facility] Sep 28, 2020 03:20 PM VA-TOBACCO FORMER USER [facility] Sep 28, 2020 03:20 PM VA-TOBACCO QUIT 15 YRS OR MORE [facility] Dec 25, 2019 10:30 AM VA-TOBACCO FORMER USER [facility] Dec 25, 2019 10:30 AM VA-TOBACCO QUIT 15 YRS OR MORE [facility] Feb 21, 2018 11:12 AM VA-TOBACCO FORMER USER [facility] Feb 21, 2018 11:12 AM VA-TOBACCO QUIT 15 YRS OR MORE [facility] August 08, 2017 11:28 AM FORMER TOBACCO USER 7Y OR GREATE R [facility] Aug 22, 2016 07:47 AM FORMER TOBACCO USER 7Y OR GREATE R [facility] Aug 23, 2015 09:50 AM FORMER TOBACCO USER 7Y OR GREATE R [facility] Aug 13, 2014 08:34 AM LIFETIME NON-TOBACCO USER [facility] Aug 11, 2013 07:48 AM LIFETIME NON-TOBACCO USER [facility] Advance Directives: All historical and current Section Date Range: From patient's date of to the date document was created. This section includes ALL of a patient's completed or amended [place] Advance and Rescinded Directives. The entries below indicate that a directive exists for the patient, but an actual copy is not included with this document. The data comes from all [facility]. Date Advance Directives Provider Source Aug 13, 2014 ADVANCE DIRECTIVE VANDANA MAURICE [facility] Aug 13, 2014 ADVANCE DIRECTIVE DISCUSSION VANDANA MAURICE [facility] May 06, 2007 ADVANCE DIRECTIVE MAYITO PIERRE [facility] Encounter Notes: All associated encounter notes This section contains the clinical notes associated to the Encounter. 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 He is currently on empagliflozin 25 mg daily, metformin 1000 mg twice daily, semaglutide 1 mg weekly, and glargine 24 units daily. His last hemoglobin A1c at the [facility] was 7.8% April 20, 2023. -BG well controlled w/ glargine now at 30 units daily. Will update labs and recheck A1c in 3 months when he is back in [place]. #UTI Diagnosed through [facility] in [place]. He has f/u with [place] urology in [place], so advised he bring his lab results to them so an Abx can be Rx'ed locally. If that fails, and he does not hear from [facility], he will send a secure message later today and I'll call in Bactrim or Augmentin close to home. RTC: per prior recall in 3 months Eddie Dumont MD General Internal Medicine [facility] A total of 35 minutes was spent on this visit reviewing previous notes, counseling the patient, ordering or interpreting tests, adjusting meds, and documenting the findings in the note. CC: DM II HPI I called the patient to discuss his hemoglobin A1c. He says that recently, his blood sugars have been in the 210s to 140 mg/dL in the morning. At that point he was on 24 units/day of insulin. He is since increased his glargine to 30 units/day and his blood sugars have been better controlled, generally in the 150s in the morning. He made the switch about a week ago, and since then denies any low blood sugars. He also says that he went to see the [facility] on Sunday due to dysuria, malodorous urine, and frequency. I reviewed his chart and the [facility], and it appears that he has a Klebsiella UTI with resistance to ampicillin and susceptibility to Augmentin, ciprofloxacin, Bactrim. Intermittent resistance noted to nitrofurantoin. He denies any fevers or chills. UPDATED PROBLEM LIST Active problems - Computerized Problem List is the source for the followin. CKD stage 3 (SNOMED CT 660994082) 2. Hyperlipidemia (SNOMED CT 40043859) 3. Benign essential hypertension (SNOMED CT 1029637) 4. H/O: pulmonary embolus - on rivaroxaban 20 mg nightly - unprovoked 2012 5. Long-term current use of anticoagulant (SNOMED CT 019200857) 6. Hypomagnesemia 7. Diabetic neuropathy 8. Vertigo - s/p VA PT 08/2022 9. Diabetes Mellitus Type 2 ([facility] [id number]) 10. CAD - Coronary Artery Disease ([facility] [id number]) - s/p KYMBERLY to LCX 2003, LAD 2011 - Follows at [facility] - ezetimibe 10 mg daily and niacin due to elevated CK w/ statins 11. Allergic Rhinitis ([facility] [id number]) 12. Felipe's Esophagus ([facility] [id number]) - last EGD 12/2021 at [facility] w/o sign of malignancy but short-segment Felipe's esophagus in lower third of esophagus was foun - esophageal study normal 12/2021 - Follows with [facility] - Next EGD due approx. 2026 13. Peripheral neuropathy due to type 2 diabetes mellitus 14. Restless Legs Syndrome ([facility] [id number]) 15. Dyspnea - has been referred to pulmonary at [facility], PFT 12/2021 showed reduced diffusing capacity and normal spirometry 16. Ventricular premature complex - Symptomatic, follows w/ [facility]ology, on 17. Venous insufficiency of leg - Uses compression stockings 18. Adenomatous polyp of colon - 4 mm TA in transverse colon [facility] 02/17/2020; repeat due 02/2025 19. Lumbar spinal stenosis - s/p whizotomy L3-S1 c/b bilateral foot drop - Uses [facility], [facility] - Follows at [facility] where he has had L4-S1 branch blocks 03/2018, RFA L4-S1 05/2018, as well as trigger point injections 04/2021 20. Cervical spinal stenosis - Has had neurosurgery eval suggesting surgy but this was not pursued by the patient 21. Irritable bowel syndrome - Multiple EGDs for Barrets w/o cause for chronic abdominal pain (Celiacs) - H. pylori negative via stool Ag testing [facility] 01/2023 - CT a/p 2022 without explanation - Abdominal pain imrpoves w/ defecation, suspect IBS - Trial Psyllium and referral to nutrition for FODMAP 01/2023 - SIBO Dx [facility] 2022, Rx'ed rifaximen 22. Prostate Cancer ([facility]CT [id number]) - Dx 2023, Bynum 4+3 - underwent TURP 04/20/2023 for obstructive voiding symptoms [facility] 23. Small bowel bacterial overgrowth syndrome - Dx [facility] 2022, on rifaximen MEDICATION RECONCILATION Education Evaluations *Was medication education provided for NEW medications or CHANGES to medications? (including medication name, dose, route, reason for use, and potential side effects). Yes. Verbal education was provided to patient/caregiver and patient/caregiver verbalized understanding. TERATOGENIC MED & CONTRACEPTION REVIEW (Optional)... ===== MEDICATION RECONCILIATION ===== Review Done: The medication list shown below was verified for accuracy and it includes all pending medications/active medications/all medications or discontinued within the last 90 days/all remote medications and non-VA medications. If a given category (i.e. remote meds) is not shown, that means that a patient doesn't have a medication(s) in that category. Allergies listed below were also reviewed/updated for accuracy. Allergies/ADR from [facility] may not display in CPRS. Use JLV MRT5 - Allergies/ADRs FACILITY ALLERGY/ADR -------- [facility] NO KNOWN ALLERGIES [facility] HCS GABAPENTIN [facility] LISINOPRIL [facility] NO KNOWN ALLERGIES [facility] NO KNOWN ALLERGIES Active and Recently Outpatient Medications (including Supplies): Issue Date Status Last Fill Active Outpatient Medications Refills Expiration 1) ACCU-CHEK GUIDE (GLUCOSE) TEST STRIP ACTIVE Issu:01-17-23 Qty: 300 for 90 days Sig: USE 1 STRIP Refills: 2 Last:01-17-23 THREE TIMES A DAY TO CHECK BLOOD SUGAR Expr:01-18-24 -USE WITHIN 3 MINUTES OF REMOVING FROM CONTAINER 2) ACETAMINOPHEN 500MG TAB Qty: 200 for 30 ACTIVE Issu:01-17-23 days Sig: TAKE TWO TABLETS BY MOUTH Refills: 9 Last:01-18-23 EVERY 8 HOURS NEEDED FOR PAIN -NOT Expr:01-18-24 TO EXCEED 4000MG IN 24 HOURS FROM ALL SOURCES 3) ALBUTEROL 90MCG (CFC-F) 200D ORAL INHL ACTIVE Issu:01-17-23 Qty: 2 for 50 days Sig: INHALE 2 Refills: 1 Last:01-18-23 PUFFS BY INHALATION FOUR TIMES A DAY Expr:01-18-24 FOR SHORTNESS OF BREATH *SHAKE WELL* (FOR IMMEDIATE RELIEF) 4) ARTIFICIAL TEARS PVA 1.4%/POVIDONE (PF) ACTIVE Issu:01-17-23 Qty: 30 for 30 days Sig: INSTILL 1 Refills: 1 Last:01-18-23 DROP IN BOTH EYES TWICE A DAY FOR DRY Expr:01-18-24 EYES 5) DICLOFENAC NA 1% TOP GEL Qty: 200 for ACTIVE Issu:01-17-23 30 days Sig: APPLY 2 GRAMS TO LEFT Refills: 9 Last:01-18-23 HAND THREE TIMES A DAY NEEDED FOR Expr:01-18-24 ARTHRITIS PAIN -USE DOSE CARD IN BOX TO MEASURE DOSE -MAX 32 GM PER DAY 6) EMPAGLIFLOZIN 25MG TAB Qty: 90 for 90 ACTIVE Issu:01-17-23 days Sig: TAKE ONE TABLET BY MOUTH Refills: 2 Last:01-17-23 EVERY DAY FOR DIABETES Expr:01-18-24 7) EZETIMIBE 10MG TAB Qty: 90 for 90 days ACTIVE Issu:01-17-23 Sig: TAKE ONE TABLET BY MOUTH AT Refills: 2 Last:01-17-23 BEDTIME Expr:01-18-24 8) FAMOTIDINE 20MG TAB Qty: 180 for 90 ACTIVE Issu:01-17-23 days Sig: TAKE ONE TABLET BY MOUTH Refills: 2 Last:01-17-23 TWICE A DAY TO DECREASE STOMACH ACID Expr:01-18-24 9) FEXOFENADINE HCL 180MG TAB Qty: 90 for ACTIVE Issu:01-17-23 90 days Sig: TAKE ONE TABLET BY MOUTH Refills: 2 Last:01-17-23 EVERY DAY FOR ALLERGIC RHINITIS Expr:01-18-24 10) KETOCONAZOLE 2% SHAMPOO Qty: 120 for 30 ACTIVE Issu:01-17-23 days Sig: SHAMPOO SCALP DIRECTED Refills: 4 Last:01-17-23 THREE TIMES A WEEK Expr:01-18-24 11) LIDOCAINE 5% OINT Qty: 35 for 30 days ACTIVE Issu:01-17-23 Sig: APPLY MODERATE AMOUNT TOPICALLY Refills: 1 Last:01-18-23 THREE TIMES A DAY FOR PAIN Expr:01-18-24 12) METFORMIN HCL 1000MG TAB Qty: 180 for ACTIVE Issu:01-17-23 90 days Sig: TAKE ONE TABLET BY MOUTH Refills: 2 Last:01-17-23 TWICE A DAY TO DECREASE BLOOD SUGAR Expr:01-18-24 -TAKE WITH FOOD 13) METOPROLOL SUCCINATE 50MG SA TAB Qty: ACTIVE Issu:01-17-23 180 for 90 days Sig: TAKE ONE TABLET Refills: 2 Last:01-17-23 BY MOUTH TWICE A DAY FOR HEART RHYTHM Expr:01-18-24 (WHOLE TABLET REQUESTED) 14) MOMETASONE FUROATE 50MCG 120D NASAL SUSP ACTIVE Issu:01-17-23 Qty: 3 for 90 days Sig: SPRAY 2 Refills: 1 Last:01-17-23 SPRAYS IN EACH NOSTRIL EVERY DAY FOR Expr:01-18-24 RHINITIS (RUNNY NOSE) 15) MULTIVITAMIN CAP/TAB Qty: 100 for 90 ACTIVE Issu:01-17-23 days Sig: TAKE 1 TABLET BY MOUTH Refills: 2 Last:01-17-23 EVERY DAY Expr:01-18-24 16) NEEDLE,PEN 29G,12MM Qty: 200 for 90 ACTIVE Issu:01-17-23 days Sig: USE 1 NEEDLE DIRECTED Refills: 2 Last:01-17-23 *DISPOSE OF IN A HARD-PLASTIC Expr:01-18-24 CONTAINER WITH A SCREW-ON LID CONTACT GARBAGE [facility] FOR PROPER DISPOSAL 17) NITROGLYCERIN 0.4MG SL TAB Qty: 100 for ACTIVE Issu:01-17-23 30 days Sig: DISSOLVE ONE TABLET Refills: 10 Last:01-17-23 UNDER THE TONGUE NEEDED FOR CHEST Expr:01-18-24 PAIN -MAY REPEAT EVERY 5 MINUTES -NO MORE THAN 3 TOTAL. IF NO RELIEF AFTER 3 DOSES SEEK MEDICAL ATTENTION 18) PANTOPRAZOLE NA 40MG EC TAB Qty: 180 HOLD Issu:01-17-23 for 90 days Sig: TAKE ONE TABLET BY Refills: 3 MOUTH TWICE A DAY TO DECREASE STOMACH Expr:01-18-24 ACID -TAKE ON AN EMPTY STOMACH, AT LEAST ONE-HALF HOUR BEFORE EATING 19) PRAMIPEXOLE DIHYDROCHLORIDE 0.25MG TAB ACTIVE Issu:01-17-23 Qty: 30 for 30 days Sig: TAKE ONE Refills: 8 Last:04-14-23 TABLET BY MOUTH AT BEDTIME FOR Expr:11-08-24 RESTLESS LEGS SYNDROME 2 20) PREGABALIN 150MG ORAL CAP Qty: 30 for ACTIVE Issu:01-17-23 30 days Sig: TAKE ONE CAPSULE BY Refills: 2 Last:04-14-23 MOUTH AT BEDTIME FOR PAIN IN Expr:07-20-23 ADDITIONAL TO YOUR PREGABALIN 75MG TWICE DAILY DOSE DIRECTED. 21) PREGABALIN 75MG ORAL CAP Qty: 60 for 30 ACTIVE Issu:01-17-23 days Sig: TAKE ONE CAPSULE BY MOUTH Refills: 2 Last:04-14-23 TWICE A DAY FOR PAIN FOR PERIPHERAL Expr:07-20-23 NEUROPATHY. 22) PSYLLIUM ORAL PWD Qty: 390 for 90 days ACTIVE Issu:01-17-23 Sig: TAKE 1 TABLESPOONFUL BY MOUTH Refills: 2 Last:01-17-23 TWICE A DAY FOR REGULAR BOWEL Expr:01-18-24 MOVEMENTS MIX WITH 8 OUNCES WATER OR JUICE 23) RIVAROXABAN 10MG TAB Qty: 90 for 90 ACTIVE (S) Issu:04-16-23 days Sig: TAKE ONE TABLET BY MOUTH Refills: 3 Last:06-11-23 EVERY EVENING TO PREVENT BLOOD CLOTS Expr:04-16-24 24) SEMAGLUTIDE 1MG/0.75ML INJ PEN 3ML Qty: HOLD Issu:01-17-23 1 for 28 days Sig: INJECT 1MG UNDER Refills: 3 Last:01-17-23 THE SKIN EVERY WEEK FOR DIABETES AND Expr:01-18-24 WEIGHT LOSS -MULTIPLE DOSES PER PEN 25) SIMETHICONE 80MG CHEW TAB Qty: 400 for ACTIVE Issu:01-17-23 90 days Sig: CHEW ONE TABLET BY MOUTH Refills: 2 Last:01-17-23 FOUR TIMES A DAY FOR GAS Expr:01-18-24 26) SODIUM CHLORIDE 1GM TAB Qty: 200 for 90 ACTIVE Issu:01-17-23 days Sig: TAKE ONE TABLET BY MOUTH Refills: 2 Last:01-17-23 TWICE A DAY Expr:01-18-24 27) SUCRALFATE 500MG/5ML SUSP Qty: 1260 for ACTIVE Issu:01-17-23 30 days Sig: TAKE 10 ML (2 Refills: 0 Last:01-17-23 TEASPOONSFUL) BY MOUTH FOUR TIMES A Expr:01-18-24 DAY NEEDED FOR GERD (ACID REFLUX) -TAKE ON AN EMPTY STOMACH -SHAKE WELL BEFORE USE 28) TAMSULOSIN HCL 0.4MG CAP Qty: 90 for 90 ACTIVE Issu:01-17-23 days Sig: TAKE ONE CAPSULE BY MOUTH Refills: 2 Last:01-17-23 EVERY DAY FOR BENIGN PROSTATIC Expr:01-18-24 HYPERTROPHY (BPH) 29) TRIAMCINOLONE ACETONIDE 0.1% CREAM Qty: ACTIVE Issu:01-17-23 80 for 30 days Sig: APPLY THIN LAYER Refills: 10 Last:01-17-23 TOPICALLY TWICE A DAY AVOID Expr:01-18-24 FACE,GROIN & ARMPITS *FOR EXTERNAL USE ONLY FOR ECZEMA Issue Date Status Last Fill Pending Outpatient Medications Refills Expiration 1) INSULIN GLARGINE-YFGN 100UNIT/ML PEN INJ PENDING Qty: 5 Sig: INJECT 30 UNITS UNDER THE Refills: 0 SKIN EVERY DAY FOR DIABETES -REFRIGERATE -DISCARD PEN 28 DAYS AFTER FIRST USE Issue Date Status Last Fill Inactive Outpatient [...] DAY TO DECREASE STOMACH ACID Expr:10-19-23 11) FEXOFENADINE HCL 180MG TAB Qty: 90 for DISCONTINUED Issu:10-18-22 90 days Sig: TAKE ONE TABLET BY MOUTH Refills: 2 Last:01-28-23 EVERY DAY FOR ALLERGIC RHINITIS Expr:10-19-23 12) INSULIN,GLARGINE 100 UNT/ML 3ML SOLOSTAR DISCONTINUED Issu:05-19-22 Qty: 5 for 88 days Sig: INJECT 26 (EDIT) Last:06-26-22 UNITS UNDER THE SKIN EVERY DAY FOR Refills: 5 Expr:05-20-23 DIABETES FOR DIABETES -REFRIGERATE -DISCARD PEN 28 DAYS AFTER FIRST USE 13) INSULIN,GLARGINE 100 UNT/ML 3ML SOLOSTAR DISCONTINUED Issu:03-03-22 Qty: 5 for 88 days Sig: INJECT 16 Refills: 4 Last:03-03-22 UNITS UNDER THE SKIN EVERY DAY FOR Expr:03-04-23 DIABETES FOR DIABETES -REFRIGERATE -DISCARD PEN 28 DAYS AFTER FIRST USE 14) INSULIN,GLARGINE 100 UNT/ML 3ML SOLOSTAR DISCONTINUED Issu:02-13-22 Qty: 20 for 88 days Sig: INJECT 16 Refills: 4 Last:02-13-22 UNITS UNDER THE SKIN TWICE A DAY FOR Expr:02-14-23 DIABETES -REFRIGERATE -DISCARD PEN 28 DAYS AFTER FIRST USE 15) INSULIN,GLARGINE-YFGN 100UNIT/ML PEN 3ML DISCONTINUED Issu:01-17-23 Qty: 5 for 60 days Sig: INJECT 24 Refills: 4 Last:01-17-23 UNITS UNDER THE SKIN EVERY DAY FOR Expr:01-18-24 DIABETES -REFRIGERATE -DISCARD PEN 28 DAYS AFTER FIRST USE 16) ISOSORBIDE MONONITRATE 30MG SA TAB Qty: DISCONTINUED Issu:04-14-22 45 for 90 days Sig: TAKE ONE-HALF Refills: 3 Last:04-14-22 TABLET BY MOUTH EVERY DAY FOR CHEST Expr:04-15-23 PAIN 17) ISOSORBIDE MONONITRATE 30MG SA TAB Qty: DISCONTINUED Issu:02-01-22 90 for 90 days Sig: TAKE ONE TABLET (EDIT) Last:02-22-22 BY MOUTH EVERY DAY Refills: 3 Expr:02-02-23 18) KETOCONAZOLE 2% SHAMPOO Qty: 120 for 30 DISCONTINUED Issu:07-13-22 days Sig: SHAMPOO SCALP DIRECTED Refills: 0 Last:12-01-22 THREE TIMES A WEEK Expr:07-14-23 19) LIDOCAINE 5% OINT Qty: 35 for 30 days DISCONTINUED Issu:10-18-22 Sig: APPLY MODERATE AMOUNT TOPICALLY Refills: 0 Last:01-20-23 THREE TIMES A DAY FOR PAIN Expr:10-19-23 20) METFORMIN HCL 1000MG TAB Qty: 180 for DISCONTINUED Issu:10-18-22 90 days Sig: TAKE ONE TABLET BY MOUTH Refills: 2 Last:01-28-23 TWICE A DAY TO DECREASE BLOOD SUGAR Expr:10-19-23 -TAKE WITH FOOD 21) METFORMIN HCL 500MG TAB Qty: 180 for 90 DISCONTINUED Issu:02-01-22 days Sig: TAKE ONE TABLET BY MOUTH (EDIT) Last:04-29-22 TWICE A DAY TO DECREASE BLOOD SUGAR Refills: 3 Expr:02-02-23 -TAKE WITH FOOD 22) METOPROLOL SUCCINATE 50MG SA TAB Qty: DISCONTINUED Issu:10-18-22 90 for 90 days Sig: TAKE ONE TABLET (EDIT) Last:01-10-23 BY MOUTH EVERY DAY (WHOLE TABLET Refills: 3 Expr:10-19-23 REQUESTED) 23) METOPROLOL SUCCINATE 50MG SA TAB Qty: DISCONTINUED Issu:01-24-22 90 for 90 days Sig: TAKE ONE TABLET Refills: 0 Last:10-12-22 BY MOUTH EVERY DAY (WHOLE TABLET Expr:01-25-23 REQUESTED) 24) MOMETASONE FUROATE 50MCG 120D NASAL SUSP DISCONTINUED Issu:07-13-22 Qty: 3 for 90 days Sig: SPRAY 2 Refills: 1 Last:11-16-22 SPRAYS IN EACH NOSTRIL EVERY DAY FOR Expr:07-14-23 RHINITIS (RUNNY NOSE) 25) MULTIVITAMIN CAP/TAB Qty: 100 for 90 DISCONTINUED Issu:10-18-22 days Sig: TAKE 1 TABLET BY MOUTH Refills: 2 Last:01-28-23 EVERY DAY Expr:10-19-23 26) NEEDLE,PEN 29G,12MM Qty: 200 for 90 DISCONTINUED Issu:10-18-22 days Sig: USE 1 NEEDLE DIRECTED Refills: 2 Last:01-11-23 *DISPOSE OF IN A HARD-PLASTIC Expr:10-19-23 CONTAINER WITH A SCREW-ON LID CONTACT GARBAGE [facility] FOR PROPER DISPOSAL 27) NEOMYCIN SULFATE 500MG TAB Qty: 28 for Issu:01-26-23 14 days Sig: TAKE ONE TABLET BY MOUTH Refills: 0 Last:01-26-23 TWICE A DAY SIBO Expr:02-25-23 28) NITROGLYCERIN 0.4MG SL TAB Qty: 100 for DISCONTINUED Issu:08-21-22 30 days Sig: DISSOLVE ONE TABLET Refills: 7 Last:01-20-23 UNDER THE TONGUE NEEDED FOR CHEST Expr:08-22-23 PAIN -MAY REPEAT EVERY 5 MINUTES -NO MORE THAN 3 TOTAL. IF NO RELIEF AFTER 3 DOSES SEEK MEDICAL ATTENTION 29) PANTOPRAZOLE NA 40MG EC TAB Qty: 180 DISCONTINUED Issu:08-04-22 for 90 days Sig: TAKE ONE TABLET BY Refills: 0 Last:01-17-23 MOUTH TWICE A DAY TO DECREASE STOMACH Expr:08-05-23 ACID -TAKE ON AN EMPTY STOMACH, AT LEAST ONE-HALF HOUR BEFORE EATING 30) PANTOPRAZOLE NA 40MG EC TAB Qty: 180 DISCONTINUED Issu:02-01-22 for 90 days Sig: TAKE ONE TABLET BY (EDIT) Last:07-24-22 MOUTH TWICE A DAY TO DECREASE STOMACH Refills: 1 Expr:02-02-23 ACID -TAKE ON AN EMPTY STOMACH, AT LEAST ONE-HALF HOUR BEFORE EATING 31) PRAMIPEXOLE DIHYDROCHLORIDE 0.25MG TAB DISCONTINUED Issu:07-13-22 Qty: 30 for 30 days Sig: TAKE ONE Refills: 5 Last:01-27-23 TABLET BY MOUTH AT BEDTIME FOR Expr:07-14-23 RESTLESS LEGS SYNDROME FOR RESTLESS LEGS 32) PRAMIPEXOLE DIHYDROCHLORIDE 0.25MG TAB DISCONTINUED Issu:04-28-22 Qty: 60 for 30 days Sig: TAKE ONE (EDIT) Last:07-15-22 TABLET BY MOUTH TWICE A DAY FOR Refills: 9 Expr:04-29-23 RESTLESS LEGS 33) PREGABALIN 150MG ORAL CAP Qty: 30 for DISCONTINUED Issu:07-13-22 30 days Sig: TAKE ONE CAPSULE BY Refills: 0 Last:12-22-22 MOUTH AT BEDTIME FOR PAIN IN Expr:01-13-23 ADDITIONAL TO YOUR PREGABALIN 75MG TWICE DAILY DOSE DIRECTED. 34) PREGABALIN 75MG ORAL CAP Qty: 60 for 30 DISCONTINUED Issu:07-13-22 days Sig: TAKE ONE CAPSULE BY MOUTH Refills: 0 Last:12-30-22 TWICE A DAY FOR PAIN FOR PERIPHERAL Expr:01-13-23 NEUROPATHY. 35) RIFAXIMIN 550MG TAB Qty: 42 for 14 days Issu:01-26-23 Sig: TAKE ONE TABLET BY MOUTH THREE Refills: 0 Last:01-26-23 TIMES A DAY SIBO Expr:02-25-23 36) RIVAROXABAN 10MG TAB Qty: 90 for 90 DISCONTINUED Issu:04-28-22 days Sig: TAKE ONE TABLET BY MOUTH Refills: 0 Last:01-17-23 EVERY EVENING TO PREVENT BLOOD CLOTS Expr:04-29-23 37) SEMAGLUTIDE 1MG/0.75ML INJ PEN 3ML Qty: DISCONTINUED Issu:07-24-22 1 for 28 days Sig: INJECT 1MG UNDER Refills: 0 Last:12-02-22 THE SKIN EVERY WEEK FOR DIABETES AND Expr:07-25-23 WEIGHT LOSS -MULTIPLE DOSES PER PEN 38) SIMETHICONE 80MG CHEW TAB Qty: 400 for DISCONTINUED Issu:10-18-22 90 days Sig: CHEW ONE TABLET BY MOUTH Refills: 3 Last:12-08-22 FOUR TIMES A DAY FOR GAS Expr:10-19-23 39) SIMETHICONE 80MG CHEW TAB Qty: 100 for DISCONTINUED Issu:02-01-22 30 days Sig: CHEW ONE TABLET BY MOUTH Refills: 1 Last:02-22-22 FOUR TIMES A DAY NEEDED FOR Expr:02-02-23 FLATULENCE (GASSINESS/BLOATING) 40) SODIUM CHLORIDE 1GM TAB Qty: 200 for 90 DISCONTINUED Issu:10-18-22 days Sig: TAKE ONE TABLET BY MOUTH Refills: 2 Last:01-11-23 TWICE A DAY Expr:10-19-23 41) SUCRALFATE 500MG/5ML SUSP Qty: 420 for DISCONTINUED Issu:10-18-22 10 days Sig: TAKE 10 ML (2 Refills: 0 Last:12-10-22 TEASPOONSFUL) BY MOUTH FOUR TIMES A Expr:10-19-23 DAY NEEDED FOR GERD (ACID REFLUX) -TAKE ON AN EMPTY STOMACH -SHAKE WELL BEFORE USE 42) TAMSULOSIN HCL 0.4MG CAP Qty: 90 for 90 DISCONTINUED Issu:10-18-22 days Sig: TAKE ONE CAPSULE BY MOUTH Refills: 2 Last:01-28-23 EVERY DAY FOR BENIGN PROSTATIC Expr:10-19-23 HYPERTROPHY (BPH) 43) TRIAMCINOLONE ACETONIDE 0.1% CREAM Qty: DISCONTINUED Issu:02-01-22 80 for 30 days Sig: APPLY THIN LAYER Refills: 0 Last:01-21-23 TOPICALLY TWICE A DAY AVOID Expr:02-02-23 FACE,GROIN & ARMPITS *FOR EXTERNAL USE ONLY FOR ECZEMA 73 Total Medications PHYSICAL EXAM General: Sitting in living room, no acute distress LABS and STUDIES His last hemoglobin A1c at the [facility] was 7.8% April 20, 2023. [facility] 05/04/2023: Klebsiella UTI with resistance to ampicillin and susceptibility to Augmentin, ciprofloxacin, Bactrim. Intermittent resistance noted to nitrofurantoin. He denies any fevers or chills. /valarie/ EDDIE DUMONT MD PHYSICIAN, [facility] Signed: 05/07/2023 09:35 05/07/2023 ADDENDUM STATUS: UNSIGNED You may not VIEW this UNSIGNED Addendum. EDDIE DUMONT [facility] May 07, 2023 08:43 AM INTERNAL MEDICINE OUTPATIENT NOTE: LOCAL TITLE: MEDICINE CLINIC NURSING NOTE STANDARD TITLE: INTERNAL MEDICINE OUTPATIENT NOTE DATE OF NOTE: MAY 07, 2023@08:43 ENTRY DATE: MAY 07, 2023@08:43:20 AUTHOR: ELADIO LEWIS EXP COSIGNER: URGENCY: STATUS: COMPLETED TYPE OF VISIT: Telemedicine Check In Type of appointment: C Appointment Patient's identity verified using two identifiers. Patient Contact Details: Best contact number for backup/emergency communication with patient: Patient Location/Surroundings During Visit: Patient location during visit: Home [address] [place], [place] [address] Temporary Address Start: Apr Temporary Address Stop: Jun Patient confirms location is safe and private for visit. Visit conducted by synchronous telehealth. Patient verbal consent for VA Video Connect visit obtained. Location/emergency number confirmed. *Environment surveyed and all participants identified. Virtual conference room locked. REASON FOR VISIT: DM11 ALLERGIES: GABAPENTIN (Nov 24, 2008) LISINOPRIL (Sep [...] wish to discuss with their provider today. COVID-19 Immunization: Virtual/Telehealth Visit - Patient educated on the need for receiving COVID-19 (SARS-CoV-2) immunization either at [place] or outside facility. Comment: STATES VACCINES EXCEPT LAST BOOSTER Influenza Immunization: Virtual/Telehealth Visit - Patient educated on the need for receiving influenza immunization either at [place] or outside facility. Sexual Orientation: The patient thinks of their sexual orientation as: Straight or Heterosexual /es/ ELADIO LEWIS ADVANCED TELEHEALTH SEPTIC TECHNICIAN Signed: 05/07/2023 08:58 ELADIO LEWIS [facility]
--- OUTSIDE RECORDS SUMMARY | 2023-10-08 12:23 | XMS_ITS | Encounter Summary ---
Author Name [facility] [place] Address [address] [place] [address] Care Team Providers Care Veneer Drier Name Role Phone JI DUMONT Primary Care [...] Ochoa's Name Patient's Relationship to Policy Ochoa [facility] (R) MEDICARE [facility] ([facility]) Mar 12, 2015 [id number] BARRY GONZALEZ [facility] ([facility]) MEDICARE ADVANTAGE [facility] ID[facility] Mar 12, 2015 [id number] [phone] BARRY GONZALEZ [facility] (WNR) MEDICARE ADVANTAGE [facility] (WNR) Mar 12, 2015 [id number] [phone] JUSTYNAPAMELABARRY PATEL PATIENT [place] RETIREE PLATI NUM BLUE COMPL E Mar 12, 2016 [id number] [facility] (WN) MEDICARE ADVANTAGE [facility] ([facility]) Mar 12, 2015 [id number] BARRY GONZALEZ PATIENT MEDICARE (WNR) MEDICARE (M) PART A Mar 12, 2000 PART A [id number] BARRY GONZALEZ PATIENT Selected Encounter This section includes the information on record at [place] for the Encounter. Date/Time Encounter Type Encounter Description Reason Pro vider Source May 08, 2023 10:14 AM Outpatient Encounter COMMUNITY CARE CONSULT IHE Encounter Template Text not used by [place] Plan of Treatment: Future Appointments (+ 6 months) and Future Tests (+/- 45 days) The Plan of Treatment section includes future care activities for the patient from all [place] treatment[facility]. This section includes future appointments and future orders which are active, pending or scheduled. Future Appointments This section includes appointments that were scheduled to occur 6 months from the date of the Encounter, up to a maximum of 20 appointments. The data comes from all [place] treatment facilities. Appointment Date/Time Appointment Type Appointme nt Facility Name Jun 21, 2023 10:00 AM [facility] Aug 20, 2023 09:30 AM AMBULATORY - MEDICINE [facility] Aug 21, 2023 11:00 AM AMBULATORY - NONE [facility] Aug 27, 2023 10:00 AM AMBULATORY - NONE [facility] Aug 27, 2023 11:00 AM AMBULATORY - REHAB MEDICIN E [facility] Aug 28, 2023 02:10 PM [facility] Social History: Smoking Status (Most current) and Tobacco Use (All prior to encounter date) This section includes the most current, and the historical, smoking and tobacco- related health factors from the [place] facility where the Encounter took place. Current Smoking Status This section includes the most current smoking, or tobacco-related health factor, from the [place] facility where the Encounter took place. Date/Time Current Smoking Status Comment Facil ity Jan 17, 2023 10:45 AM [place]-TOBACCO QUIT 15 YRS OR MORE [facility] Tobacco Use History This section includes a history of the smoking, or tobacco-related health factors, that were collected on or before the date of the Encounter. The data comes from the [place] facility where the Encounter took place. Date/Time Smoking Status/Tobacco Use Comment F acility Jan 17, 2023 10:45 AM VA-TOBACCO QUIT 15 YRS OR MORE [facility] Feb 01, 2022 10:15 AM VA-TOBACCO FORMER USER [facility] Feb 01, 2022 10:15 AM VA-TOBACCO QUIT 15 YRS OR MORE [facility] Sep 28, 2020 03:20 PM VA-TOBACCO FORMER USER [facility] Sep 28, 2020 03:20 PM VA-TOBACCO QUIT 15 YRS OR MORE [facility] Dec 25, 2019 10:30 AM VA-TOBACCO FORMER USER [facility] Dec 25, 2019 10:30 AM VA-TOBACCO QUIT 15 YRS OR MORE [facility] Feb 21, 2018 11:12 AM VA-TOBACCO FORMER USER [facility] Feb 21, 2018 11:12 AM VA-TOBACCO QUIT 15 YRS OR MORE [facility] August 08, 2017 11:28 AM FORMER TOBACCO USER 7Y OR GREATE R [facility] Aug 22, 2016 07:47 AM FORMER TOBACCO USER 7Y OR GREATE R [facility] Aug 23, 2015 09:50 AM FORMER TOBACCO USER 7Y OR GREATE R [facility] Aug 13, 2014 08:34 AM LIFETIME NON-TOBACCO USER [facility] Aug 11, 2013 07:48 AM LIFETIME NON-TOBACCO USER [facility] Advance Directives: All historical and current Section Date Range: From patient's date of to the date document was created. This section includes ALL of a patient's completed or amended [place] Advance and Rescinded Directives. The entries below indicate that a directive exists for the patient, but an actual copy is not included with this document. The data comes from all [place] facilities. Date Advance Directives Provider Source Aug 13, 2014 ADVANCE DIRECTIVE VANDANA MAURICE [facility] Aug 13, 2014 ADVANCE DIRECTIVE DISCUSSION VANDANA MAURICE [facility] May 06, 2007 ADVANCE DIRECTIVE MAYITO PIERRE [facility] Encounter Notes: All associated encounter notes This section contains the clinical notes associated to the Encounter. Date/Time Encounter Note(s) Provider Source May 08, 2023 01:35 PM ADDENDUM: LOCAL TITLE: Addendum STANDARD TITLE: ADDENDUM DATE OF NOTE: MAY 08, 2023@13:35:40 ENTRY DATE: MAY 08, 2023@13:35:42 AUTHOR: MYRA MARQUEZ COSIGNER: URGENCY: STATUS: COMPLETED Received the above prescription without records in [facility]. Short fill medications are not co-managed. Forwarding the pact team to reach out to to discuss medication and order as the pcp feels appropriate. Defer to pact team to obtain records if needed. Prescription scanned and attached to this note. /valarie/ MYRA MARQUEZ LPN Co-Parts Sales Advisor Signed: 05/08/2023 13:36 Receipt Acknowledged By: 05/08/2023 15:28 /es/ SHEYLA MOHAMUD RN REGISTERED NURSE 05/08/2023 14:56 /es/ JI DUMONT MD PHYSICIAN, [facility] --- Original Document --- 05/08/23 PHARMACY NON VA CARE MEDICATIONS: The [facility] RECEIVED electronic prescription(s) faxed from a NON-VA Provider: omer dotson md [phone] Regarding Patient: BARRY GONZALEZ JR Date of : Nov Regarding PRESCRIPTION(s) written on Apr for: Medication(s): cefuroxime 500mg tab The Non-VA provider is not authorized to write prescription(s) through the [facility] pharmacy. The Prescription request has been redirected via FAX to [facility]. /valarie/ BREE LEONARD Low Voltage Electrician, case technician Signed: 05/08/2023 10:14 MYRA MARQUEZ [facility] May 08, 2023 10:14 AM PHARMACY NOTE: LOCAL TITLE: PHARMACY NON VA CARE MEDICATIONS STANDARD TITLE: PHARMACY NOTE DATE OF NOTE: MAY 08, 2023@10:14 ENTRY DATE: MAY 08, 2023@10:14:07 AUTHOR: BREE LEONARD EXP COSIGNER: URGENCY: STATUS: COMPLETED PHARMACY NON VA CARE MEDICATIONS Has ADDENDA The [facility] RECEIVED electronic prescription(s) faxed from a NON-VA Provider: omer dotson md [phone] Regarding Patient: BARRY GONZALEZ JR Date of : Nov Regarding PRESCRIPTION(s) written on Apr for: Medication(s): cefuroxime 500mg tab The Non-VA provider is not authorized to write prescription(s) through the [facility] pharmacy. The Prescription request has been redirected via FAX to [facility]. /valarie/ BREE LEONARD Low Voltage Electrician, case technician Signed: 05/08/2023 10:14 05/08/2023 ADDENDUM STATUS: COMPLETED Received the above prescription without records in [facility]. Short fill medications are not co-managed. Forwarding the pact team to reach out to to discuss medication and order as the pcp feels appropriate. Defer to pact team to obtain records if needed. Prescription scanned and attached to this note. /valarie/ MYRA MARQUEZ LPN Co-Parts Sales Advisor Signed: 05/08/2023 13:36 Receipt Acknowledged By: * AWAITING SIGNATURE * SHEYLA MOHAMUD * AWAITING SIGNATURE * JI DUMONT ALEXI M [facility]
--- OUTSIDE RECORDS SUMMARY | 2023-10-08 12:23 | XMS_ITS | Encounter Summary ---
Author Name [facility] [place] Address [address] [place] [address] Care Team Providers Care Code And Test Clerk Name Role Phone JI DUMONT Primary Care [...] Ochoa's Name Patient's Relationship to Policy Ochoa [facility] ([facility]) MEDICARE ADVANTAGE [facility] ([facility]) Mar 12, 2015 [id number] [phone] ALBABARRY PATEL [facility] (WNR) MEDICARE ADVANTAGE [facility] ([facility]) Mar 12, 2015 [id number] [phone] LISABARRY PATIENT [facility] (R) MEDICARE ADVANTAGE SENIDRIS R [facility]U Mar 12, 2015 [id number] [phone] BARRY GONZALEZ PATIENT BLUE CROSS [facility] RETIREE PLATI NUM BLUE COMPL E Mar 12, 2016 [id number] LISA BARRY JENNIFFER [place] [facility] ([place]NR) MEDICARE ADVANTAGE [facility] (WNR) Mar 12, 2015 [id number] BARRY GONZALEZ PATIENT MEDICARE (WNR) MEDICARE (M) PART A Mar 12, 2000 PART A [id number] BARRY GONZALEZ PATIENT Selected Encounter This section includes the information on record at [place] for the Encounter. Date/Time Encounter Type Encounter Description Reason Provider Source May 07, 2023 12:00 PM OFF/OP CNSLTJ NEW/EST MOD 40 UROLOGY CLINIC ICD-10-CM C61 Malignant neoplasm of prostate DWIGHT KIRBY Lizzy Encounter Template Text not used by [place] Assessments - Encounter Diagnoses This section includes the primary and secondary diagnoses documented for the Encounter. Date/Time Primary/Secondary Diagnosis Diagnosis Name Provider Source May 07, 2023 12:49 PM PRIMARY Malignant neoplasm of prostate MANOLO PATTERSON [facility] May 07, 2023 12:49 PM SECONDARY Benign prostatic hyperplasia with lower urinary tract symp MANOLO PATTERSON [facility] May 07, 2023 12:49 PM SECONDARY Urinary tract infection, site not specified MANOLO PATTERSON [facility] Plan of Treatment: Future Appointments (+ 6 months) and Future Tests (+/- 45 days) The Plan of Treatment section includes future care activities for the patient from all [place] [facility]. This section includes future appointments and [...] 10:00 AM AMBULATORY - NONE [place] [facility] Aug 20, 2023 09:30 AM AMBULATORY - [place]ICINE [place] [facility] Aug 21, 2023 11:00 AM AMBULATORY - NONE [place] [facility] Aug 27, 2023 10:00 AM AMBULATORY - NONE [place] [facility] Aug 27, 2023 11:00 AM AMBULATORY - REHAB MEDICIN E [facility] Aug 28, 2023 02:10 PM AMBULATORY - NONE [place] [facility] Advance Directives: All historical and current Section Date Range: From patient's date of to the date document was created. This section includes ALL of a patient's completed or amended [place] Advance and Rescinded Directives. The entries below indicate that a directive exists for the patient, but an actual copy is not included with this document. The data comes from all [place] facilities. Date Advance Directives Provider Source Aug 13, 2014 ADVANCE DIRECTIVE DISCUSSION VANDANA MAURICE [facility] Aug 13, 2014 ADVANCE DIRECTIVE VANDANA MAURICE [facility] May 06, 2007 ADVANCE DIRECTIVE MAYITO PIERRE [facility] Encounter Notes: All associated encounter notes This section contains the clinical notes associated to the Encounter. Date/Time Encounter Note(s) Provider Source May 07, 2023 11:19 AM UROLOGY CONSULT: LOCAL TITLE: UROLOGY CONSULT STANDARD TITLE: UROLOGY CONSULT DATE OF NOTE: MAY 07, 2023@11:19 ENTRY DATE: MAY 07, 2023@11:19:52 AUTHOR: MANOLO PATTERSON EXP COSIGNER: DWIGHT KIRBY URGENCY: STATUS: COMPLETED UROLOGY CONSULT Has ADDENDA Urology Clinic Consult Note CC: BPH w/LUTS HPI: Pt is a 77 yo male with Cielo 4+3 prostate cancer who has plans to undergo radiation with ADT (starting 06/2023, Lupron for 6 mo given 03/2023) has been seeing [facility] in [place]. Patient had a TURP with [facility] 04/20/23. He complains of UTI sx for about 10 days including perineal soreness, white milky urine that transitions to bobby/brown colored urine, foul smelling urine, UUI, dysuria, daytime frequency, NF 6-10x. Denies fever/chills/body aches. Denies bright red hematuria. Patient had a urine culture with [facility] and was found to have Klebsiella Pneumoniae >100k 05/04/23 blood sensitivities are still pending. Patient presented to clinic with . PMHx: BPH, prostate cancer SurgHx: SURGERIES - NONE FOUND SHx: Quit tobacco 20+ years ago, Neg alcohol, Neg illicit drug, at [facility] FHx: unsure if father had prostate cancer Urology Meds: flomax 0.8mg Allergies: Patient has answered NKA ROS: as mentioned in the HPI PE: General: Well-developed, well-nourished male in no acute distress HEENT: Normocephalic, atraumatic Neck: Supple, trachea midline Chest/Lungs: Non-labored respirations ABD: soft, nontender, no masses Back: No CVAT EXT: - C/C/E NEURO: A, OX3, interacting appropriately IMAGES: PET Scan [facility] 02/06/2023 EXAM: PET CT SKULL TO THIGH PSMA COMPARISON: MR prostate 01/19/2023 INDICATION: Recently diagnosed Cielo 4+3 prostate adenocarcinoma. Initial treatment strategy. The [...] No evidence for PSMA avid metastatic disease. 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 1.Prostate cancer 2.Urinary tract infection 3.BPH w/LUTS -Encourage patient to stay with 1 care team. His goal for this appointment was to get [facility]. Educated patient that outside care teams can [facility] to the [facility]. -Patient will follow up with [facility] regarding urine culture sensitivity so that he [...] 10:27 Receipt Acknowledged By: 05/08/2023 09:53 /valarie/ OLENA NIX RN 05/07/2023 13:00 /valarie/ NELSON TRUONG Urology RN, Talent Acquisition Manager 05/08/2023 ADDENDUM STATUS: COMPLETED seen/examined. agree w/ a/p. f/u PRN. /valarie/ DWIGHT KIRBY DO SURGEON Signed: 05/08/2023 10:[address] [facility]
--- OUTSIDE RECORDS SUMMARY | 2023-10-08 12:23 | XMS_ITS | Encounter Summary ---
Author Name [place] Address [address] [place] [address] Care Team Providers Care Clerical Secretary Name Role Phone JI DUMONT Primary Care [...] Name Patient's Relationship to Policy Ochoa [facility] ([facility]) MEDICARE ADVANTAGE [facility] ([facility]) Mar 12, 2015 [id number] [phone] BARRY GONZALEZ [facility] ([facility]) MEDICARE ADVANTAGE [facility] Mar 12, 2015 [id number] [phone] BARRY GONZALEZ PATIENT [facility] ([facility]) MEDICARE ADVANTAGE [facility] ([facility]) Mar 12, 2015 [id number] [phone] JUSTYNAANGELABARRY PATIENT BLUE CROSS [facility] RETIREE PLATI NUM BLUE COMPL E Mar 12, 2016 [id number] LISABARRY PATIENT [facility] ([facility]) MEDICARE ADVANTAGE [facility] (WNR) Mar 12, 2015 [id number] BARRY GONZALEZ PATIENT MEDICARE (WNR) MEDICARE (M) PART A Mar 12, 2000 PART A [id number] BARRY GONZALEZ PATIENT Selected Encounter This section includes the information on record at [place] for the Encounter. Date/Time Encounter Type Encounter Description Reason Provider Source May 08, 2023 08:32 AM Outpatient Encounter ADMIN PAT ACTIVTIES (MASNONCT) MARIANGEL ARNDT IHLizzy Encounter Template Text not used by [place] Plan of Treatment: Future Appointments (+ 6 months) and Future Tests (+/- 45 days) The Plan of Treatment section includes future care activities for the patient from all [place] [facility] This section includes future [...] 2023 10:00 AM AMBULATORY - NONE [facility] Aug 20, 2023 09:30 AM [facility]ULAT[facility] Aug 21, 2023 11:00 AM AMBULATORY - NONE [facility] Aug 27, 2023 10:00 AM AMBULATORY - NONE [facility] Aug 27, 2023 11:00 AM AMBULATORY - RE[facility]AB [facility] Aug 28, 2023 02:10 PM [facility] Social History: Smoking Status (Most current) and Tobacco Use (All prior to encounter date) This section includes the most current, and the historical, smoking and tobacco- related health factors from the [place] facility where the Encounter took place. Current Smoking Status This section includes the most current smoking, or tobacco-related health factor, from the [place] facility where the Encounter took place. Date/Time Current Smoking Status Comment Nadine dean Jan 17, 2023 10:45 AM VA-TOBACCO FORMER USER [facility] Tobacco Use History This section includes a history of the smoking, or tobacco-related health factors, that were collected on or before the date of the Encounter. The data comes from the [place] facility where the Encounter took place. Date/Time Smoking Status/Tobacco Use Comment F acility Jan 17, 2023 10:45 AM VA-TOBACCO QUIT 15 YRS OR MORE [facility] Feb 01, 2022 10:15 AM VA-TOBACCO FORMER USER [facility] Feb 01, 2022 10:15 AM VA-TOBACCO QUIT 15 YRS OR MORE [facility] Sep 28, 2020 03:20 PM VA-TOBACCO FORMER USER [facility] Sep 28, 2020 03:20 PM VA-TOBACCO QUIT 15 YRS OR MORE [facility] Dec 25, 2019 10:30 AM VA-TOBACCO FORMER USER [facility] Dec 25, 2019 10:30 AM VA-TOBACCO QUIT 15 YRS OR MORE [facility] Feb 21, 2018 11:12 AM VA-TOBACCO FORMER USER [facility] Feb 21, 2018 11:12 AM VA-TOBACCO QUIT 15 YRS OR MORE [facility] August 08, 2017 11:28 AM FORMER TOBACCO USER 7Y OR GREATE R [facility] Aug 22, 2016 07:47 AM FORMER TOBACCO USER 7Y OR GREATE R [facility] Aug 23, 2015 09:50 AM FORMER TOBACCO USER 7Y OR GREATE R [facility] Aug 13, 2014 08:34 AM LIFETIME NON-TOBACCO USER [facility] Aug 11, 2013 07:48 AM LIFETIME NON-TOBACCO USER [facility] Advance Directives: All historical and current Section Date Range: From patient's date of to the date document was created. This section includes ALL of a patient's completed or amended [place] Advance and Rescinded Directives. The entries below indicate that a directive exists for the patient, but an actual copy is not included with this document. The data comes from all [facility]. Date Advance Directives Provider Source Aug 13, 2014 ADVANCE DIRECTIVE VANDANA MAURICE [facility] Aug 13, 2014 ADVANCE DIRECTIVE DISCUSSION VANDANA MAURICE [facility] May 06, 2007 ADVANCE DIRECTIVE MAYITO PIERRE [facility] Encounter Notes: All associated encounter notes This section contains the clinical notes associated to the Encounter. Date/Time Encounter Note(s) Provider Source May 08, 2023 08:32 AM FISHING ACCESSORIES MAKER REFER RAL NOTE: LOCAL TITLE: TRAVELING COORDINATOR NOTE STANDARD TITLE: FISHING ACCESSORIES MAKER REFERRAL NOTE DATE OF NOTE: MAY 08, 2023@08:32 ENTRY DATE: MAY 08, 2023@08:32:24 AUTHOR: MARIANGEL ARNDT EXP COSIGNER: URGENCY: STATUS: COMPLETED Apr URO. Your Traveling [place] Consult request is now complete. The results from the alternate facility are viewable in JLV, Remote Data or attached. LOCAL TITLE: UROLOGY CONSULT STANDARD TITLE: UROLOGY CONSULT DATE OF NOTE: MAY 07, 2023@11:19 ENTRY DATE: MAY 07, 2023@11:19:52 AUTHOR: MANOLO PATTERSON EXP COSIGNER: DWIGHT KIRBY URGENCY: STATUS: UNCOSIGNED NOT YET COSIGNED Urology Clinic Consult Note CC: BPH w/LUTS HPI: Pt is a 77 yo male with [place] 4+3 prostate cancer who has plans to undergo radiation with ADT (starting 06/2023, Lupron for 6 mo given 03/2023) has been seeing [facility] in [place]. Patient had a TURP with [facility] 04/20/23. He complains of UTI sx for about 10 days including perineal soreness, white milky urine that transitions to bobby/brown colored urine, foul smelling urine, UUI, dysuria, daytime frequency, NF 6-10x. Denies fever/chills/body aches. Denies bright red hematuria. Patient had a urine culture with [facility] and was found to have Klebsiella Pneumoniae >100k 05/04/23 blood sensitivities are still pending. Patient presented to clinic with . PMHx: BPH, prostate cancer SurgHx: SURGERIES - NONE FOUND SHx: Quit tobacco 20+ years ago, Neg alcohol, Neg illicit drug, at [facility] FHx: unsure if father had prostate cancer Urology Meds: flomax 0.8mg Allergies: Patient has answered NKA ROS: as mentioned in the HPI PE: General: Well-developed, well-nourished male in no acute distress HEENT: Normocephalic, atraumatic Neck: Supple, trachea midline Chest/Lungs: Non-labored respirations ABD: soft, nontender, no masses Back: No CVAT EXT: - C/C/E NEURO: A, OX3, interacting appropriately IMAGES: PET Scan [facility] 02/06/2023 EXAM: PET CT SKULL TO THIGH PSMA COMPARISON: MR prostate 01/19/2023 INDICATION: Recently diagnosed [place] 4+3 prostate adenocarcinoma. Initial treatment strategy. The [...] No evidence for PSMA avid metastatic disease. 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 1.Prostate cancer 2.Urinary tract infection 3.BPH w/LUTS -Encourage patient to stay with 1 care team. His goal for this appointment was to get medications [facility] by the [facility]. Educated patient that outside care teams can send prescriptions to the [facility]. -Patient will follow up with [facility] regarding urine culture sensitivity so that he [...] MANOLO PATTERSON NURSE PRACTITIONER Signed: 05/07/2023 12:50 Receipt Acknowledged By: * AWAITING SIGNATURE * DINAHOLENA E 05/07/2023 13:00 /es/ NELSON TRUONG Urology RN, Circuit Rider /valarie/ SERGE GARCIA TRAVELING COORDINATOR Signed: 05/08/2023 08:33 Receipt Acknowledged By: 05/08/2023 15:15 /es/ JI DUMONT MD PHYSICIAN, [facility] MARIANGEL ARNDT [facility]
--- OUTSIDE RECORDS SUMMARY | 2023-10-08 12:24 | XMS_ITS | Encounter Summary ---
Author Name [place] Address [address] [place] [address] Care Team Providers Care Electronic Gaming Device Supervisor Name Role Phone JULIA JI Primary Care Provider Unavailabl e Insurance Providers: [...] Ochoa's Name Patient's Relationship to Policy Ochoa [facility] (R) MEDICARE [facility] ([facility]) Mar 12, 2015 [id number] [phone] BARRY GONZALEZ [facility] ([facility]) MEDICARE ADVANTAGE [facility] Mar 12, 2015 [id number] [phone] BARRY GONZALEZ [facility] (WNR) MEDICARE ADVANTAGE [facility] (WNR) Mar 12, 2015 [id number] [phone] JUSTYNAPAEMLABARRY PATEL PATIENT BLUE CROSS [facility] RETIREE PLATI NUM BLUE COMPL E Mar 12, 2016 [id number] [phone] LISA BARRY JENNIFFER BLUE [facility] (WN) MEDICARE ADVANTAGE [facility] ([facility]) Mar 12, 2015 [id number] BARRY GONZALEZ PATIENT MEDICARE (WNR) MEDICARE (M) PART A Mar 12, 2000 PART A [id number] BARRY GONZALEZ PATIENT Selected Encounter This section includes the information on record at [place] for the Encounter. Date/Time Encounter Type Encounter Description Reason Pro vider Source July 18, 2023 09:23 AM Outpatient Encounter TELEPHONE PRIMARY CARE IHE Encounter Template Text not used by [place] Plan of Treatment: Future Appointments (+ 6 months) and Future Tests (+/- 45 days) The Plan of Treatment section includes future care activities for the patient from all [place] [facility]. This section includes future appointments and future orders which are active, pending or scheduled. Future Appointments This section includes appointments that were scheduled to occur 6 months from the date of the Encounter, up to a maximum of 20 appointments. The data comes from all [facility]. Appointment Date/Time Appointment Type Appointme nt Facility Name Aug 20, 2023 09:30 AM [facility] Aug 21[facility] 2023 11:00 AM AMBULATORY - NONE [facility] Aug 27, 2023 10:00 AM AMBULATORY - NONE [facility] Aug 27, 2023 11:00 AM AMBULATORY - REHAB MEDICIN E [facility] Aug 28, 2023 02:10 PM AMBULATORY - NONE [facility] Active, Pending, and Scheduled Orders This section includes a listing of several types of active, pending, and scheduled orders, including clinic medications orders, diagnostic test orders, procedure orders and consult orders; where the start date of the order is 45 days before the date of the Encounter or 45 days after the date of theEncounter. The data comes from all [facility]. Test Date/Time Test Type Test Details Facility Name Aug 27, 2023 10:00 AM Laboratory - Chemi stry Order ALBUMIN/CREATININE RATIO URINE URINE WC ONCE [facility] Aug 27, 2023 10:00 AM Laboratory - Chemi stry Order HEMOGLOBIN A1C BLOOD [facility] Social History: Smoking Status (Most current) and Tobacco Use (All prior to encounter date) This section includes the most current, and the historical, smoking and tobacco- related health factors from the [place] facility where the Encounter took place. Current Smoking Status This section includes the most current smoking, or tobacco-related health factor, from the [place] facility where the Encounter took place. Date/Time Current Smoking Status Comment Nadine ity Jan 17, 2023 10:45 AM VA-TOBACCO FORMER USER [facility] Tobacco Use History This section includes a history of the smoking, or tobacco-related health factors, that were collected on or before the date of the Encounter. The data comes from the [place] facility where the Encounter took place. Date/Time Smoking Status/Tobacco Use Comment F acility Jan 17, 2023 10:45 AM VA-TOBACCO QUIT 15 YRS OR MORE [facility] Feb 01, 2022 10:15 AM VA-TOBACCO FORMER USER [facility] Feb 01, 2022 10:15 AM VA-TOBACCO QUIT 15 YRS OR MORE [facility] Sep 28, 2020 03:20 PM VA-TOBACCO FORMER USER [facility] Sep 28, 2020 03:20 PM VA-TOBACCO QUIT 15 YRS OR MORE [facility] Dec 25, 2019 10:30 AM VA-TOBACCO FORMER USER [facility] Dec 25, 2019 10:30 AM VA-TOBACCO QUIT 15 YRS OR MORE [facility] Feb 21, 2018 11:12 AM VA-TOBACCO FORMER USER [facility] Feb 21, 2018 11:12 AM VA-TOBACCO QUIT 15 YRS OR MORE [facility] August 08, 2017 11:28 AM FORMER TOBACCO USER 7Y OR GREATE R [facility] Aug 22, 2016 07:47 AM FORMER TOBACCO USER 7Y OR GREATE R [facility] Aug 23, 2015 09:50 AM FORMER TOBACCO USER 7Y OR GREATE R [facility] Aug 13, 2014 08:34 AM LIFETIME NON-TOBACCO USER [facility] Aug 11, 2013 07:48 AM LIFETIME NON-TOBACCO USER [facility] Advance Directives: All historical and current Section Date Range: From patient's date of to the date document was created. This section includes ALL of a patient's completed or amended [place] Advance and Rescinded Directives. The entries below indicate that a directive exists for the patient, but an actual copy is not included with this document. The data comes from all [facility]. Date Advance Directives Provider Source Aug 13, 2014 ADVANCE DIRECTIVE VANDANA MAURICE [facility] Aug 13, 2014 ADVANCE DIRECTIVE DISCUSSION VANDANA MAURICE [facility] May 06, 2007 ADVANCE DIRECTIVE MAYITO PIERRE [facility] Encounter Notes: All associated encounter notes This section contains the clinical notes associated to the Encounter. Date/Time Encounter Note(s) Provider Source July 18, 2023 09:23 AM PRIMARY CARE NONVA NOTE: LOCAL TITLE: CO-MANAGED CARE NOTE STANDARD TITLE: PRIMARY CARE NONVA NOTE DATE OF NOTE: JULY 18, 2023@09:23 ENTRY DATE: JULY 18, 2023@09:23:25 AUTHOR: MYRA MARQUEZ EXP COSIGNER: URGENCY: STATUS: COMPLETED Received a request for: 1. Citalopram 10mg tablet, take 1 tablet daily for 7 days, then 2 tablets daily for 28 days. Records scanned in [employer] Aud[employer] and available for review. Rx written by: Roxana Cota Facility: [facility] Local provider phone #[phone] Local provider fax #[phone] Please alert me if med isn't approved or additional information is requested. If med is denied let me know what alternatives would be approved so I can communicate that information back to the local provider. /valarie/ MYRA MARQUEZ LPN Co-Gauger Chief Delivery Signed: 07/18/2023 09:25 Receipt Acknowledged By: 07/18/2023 16:22 /valarie/ JI DUMONT MD PHYSICIAN, [facility] MYRA MARQUEZ [facility]
--- OUTSIDE RECORDS SUMMARY | 2023-10-08 12:24 | XMS_ITS | Encounter Summary ---
Author Name [place] Address [address] [place] [address] Care Team Providers Care Assembler Rubber Footwear Name Role Phone JULIA EDDIE Primary Care Provider Unavailabl e Insurance Providers: [...] Ochoa's Name Patient's Relationship to Policy Ochoa [facility] (R) MEDICARE [facility] ([facility]) Mar 12, 2015 [id number] BARRY GONZLAEZ [facility] ([facility]) MEDICARE ADVANTAGE [facility] Mar 12, 2015 [id number] [phone] BARRY GONZALEZ [facility] (WN) MEDICARE ADVANTAGE [facility] ([facility]) Mar 12, 2015 [id number] [phone] LISABARRY PATIENT BLUE CROSS [facility] RETIREE PLATI NUM BLUE COMPL E Mar 12, 2016 [id number] [phone] LISA BARRY JENNIFFER BLUE [facility] (WN) MEDICARE ADVANTAGE [facility] (WNR) Mar 12, 2015 [id number] BARRY GONZALEZ PATIENT MEDICARE (WNR) MEDICARE (M) PART A Mar 12, 2000 PART A [id number] BARRY GONZALEZ PATIENT Selected Encounter This section includes the information on record at [place] for the Encounter. Date/Time Encounter Type Encounter Description Reason Pro vider Source July 13, 2023 11:44 AM Outpatient Encounter PRIMARY CARE/MEDICINE IHE Encounter Template Text not used by [place] Plan of Treatment: Future Appointments (+ 6 months) and Future Tests (+/- 45 days) The Plan of Treatment section includes future care activities for the patient from all [place] [facility]. This section includes future appointments and future orders which are active, pending or scheduled. Future Appointments This section includes appointments that were scheduled to occur 6 months from the date of the Encounter, up to a maximum of 20 appointments. The data comes from all [facility]. Appointment Date/Time Appointment Type Appointme nt Facility Name Aug 20, 2023 09:30 AM AMBULATORY - MEDICINE [facility] Aug 21, 2023 11:00 AM [facility]ORY - NONE [facility] Aug 27, 2023 10:00 AM AMBULATORY - NONE [facility] Aug 27, 2023 11:00 AM AMBULATORY - REHAB [facility]IN [facility] Aug 28, 2023 02:10 PM AMBULATORY - NONE [facility] Active, Pending, and Scheduled Orders This section includes a listing of several types of active, pending, and scheduled orders, including clinic medications orders, diagnostic test orders, procedure orders and consult orders; where the start date of the order is 45 days before the date of the Encounter or 45 days after the date of theEncounter. The data comes from all [facility]. Test Date/Time Test Type Test Details Facility Name Aug 27, 2023 10:00 AM Laboratory - Chemi stry Order HEMOGLOBIN A1C BLOOD [facility] Aug 27, 2023 10:00 AM Laboratory - Chemi stry Order ALBUMIN/CREATININE RATIO URINE URINE WC ONCE [facility] Social History: Smoking Status (Most current) and Tobacco Use (All prior to encounter date) This section includes the most current, and the historical, smoking and tobacco- related health factors from the [place] facility where the Encounter took place. Current Smoking Status This section includes the most current smoking, or tobacco-related health factor, from the [place] facility where the Encounter took place. Date/Time Current Smoking Status Comment Facil ity Jan 17, 2023 10:45 AM VA-TOBACCO FORMER USER [facility] Tobacco Use History This section includes a history of the smoking, or tobacco-related health factors, that were collected on or before the date of the Encounter. The data comes from the [place] facility where the Encounter took place. Date/Time Smoking Status/Tobacco Use Comment F acility Jan 17, 2023 10:45 AM VA-TOBACCO QUIT [address] [facility] Feb 01, 2022 10:15 AM VA-TOBACCO FORMER USER [facility] Feb 01, 2022 10:15 AM VA-TOBACCO QUIT [address] [facility] Sep 28, 2020 03:20 PM VA-TOBACCO FORMER USER [facility] Sep 28, 2020 03:20 PM VA-TOBACCO QUIT [address] [facility] Dec 25, 2019 10:30 AM VA-TOBACCO FORMER USER [facility] Dec 25, 2019 10:30 AM VA-TOBACCO QUIT [address] [facility] Feb 21, 2018 11:12 AM VA-TOBACCO FORMER USER [facility] Feb 21, 2018 11:12 AM VA-TOBACCO QUIT [address] [facility] August 08, 2017 11:28 AM FORMER TOBACCO USER 7Y OR GREATE R [facility] Aug 22, 2016 07:47 AM FORMER TOBACCO USER 7Y OR GREATE R [facility] Aug 23, 2015 09:50 AM FORMER TOBACCO USER 7Y OR GRE[address] R [facility] Aug 13, 2014 08:34 AM LIFETIME NON-TOBACCO USER [facility] Aug 11, 2013 07:48 AM LIFETIME NON-TOBACCO USER [facility] Advance Directives: All historical and current Section Date Range: From patient's date of to the date document was created. This section includes ALL of a patient's completed or amended [place] Advance and Rescinded Directives. The entries below indicate that a directive exists for the patient, but an actual copy is not included with this document. The data comes from all [facility]. Date Advance Directives Provider Source Aug 13, 2014 ADVANCE DIRECTIVE VANDANA MAURICE [facility] Aug 13, 2014 ADVANCE DIRECTIVE DISCUSSION VANDANA MAURICE [facility] May 06, 2007 ADVANCE DIRECTIVE MAYITO PIERRE [facility] Encounter Notes: All associated encounter notes This section contains the clinical notes associated to the Encounter. Date/Time Encounter Note(s) Provider Source July 13, 2023 11:51 AM ACCOUNTING OF DISC LOSURES NOTE: LOCAL TITLE: STATE PRESCRIPTION DRUG MONITORING PROGRAM STANDARD TITLE: ACCOUNTING OF DISCLOSURES NOTE DATE OF NOTE: JULY 13, 2023@11:51:34 ENTRY DATE: JULY 13, 2023@11:51:34 AUTHOR: EDDIE DUMONT EXP COSIGNER: URGENCY: STATUS: COMPLETED This PDMP query was submitted by Eddie Dumont MD. The clinical justification for this PDMP query is to review controlled substances prescribed outside of the [facility], and any additional information that may become available, as an important component of standard clinical care, and in accordance with [facility] policy. Patient information was shared with the PDMP [place]. No prescription(s) for controlled substances outside the [facility] were found in the last 90 days. /valarie/ EDDIE DUMONT MD PHYSICIAN, [facility] Signed: 07/13/2023 11:[address] [facility]
--- OUTSIDE RECORDS SUMMARY | 2023-10-08 12:24 | XMS_ITS | Encounter Summary ---
Author Name [facility] [place] [facility] [place] Address [address] [place] [address] Care Team Providers Care Rn Ante Partum Name Role Phone JI DUMONT Primary Care [...] Ochoa's Name Patient's Relationship to Policy Ochoa [facility] (R) MEDICARE [facility] ([facility]) Mar 12, 2015 [id number] BARRY GONZALEZ [facility] ([facility]) MEDICARE ADVANTAGE [facility] Mar 12, 2015 [id number] [phone] BARRY GONZALEZ [facility] (WNR) MEDICARE ADVANTAGE [facility] (WNR) Mar 12, 2015 [id number] [phone] JUSTYNAPAMELABARRY PATEL PATIENT [place] [place]AT[place] NUM BLUE COMPL E Mar 12, 2016 [id number] LISABARRY BLUE SHIELD [facility] (WN) MEDICARE ADVANTAGE [facility] ([facility]) Mar 12, 2015 [id number] BARRY GONZALEZ PATIENT MEDICARE (WNR) MEDICARE (M) PART A Mar 12, 2000 PART A [id number] BARRY GONZALEZ PATIENT Selected Encounter This section includes the information on record at [place] for the Encounter. Date/Time Encounter Type Encounter Description Reason Pro vider Source Jul 10, 2023 04:03 PM Outpatient Encounter COMMUNITY CARE CONSULT IHE Encounter Template Text not used by [place] Plan of Treatment: Future Appointments (+ 6 months) and Future Tests (+/- 45 days) The Plan of Treatment section includes future care activities for the patient from all [place] [facility] This section includes future appointments and future orders which are active, pending or scheduled. Future Appointments This section includes appointments that were scheduled to occur 6 months from the date of the Encounter, up to a maximum of 20 appointments. The data comes from all [place] treatment facilities. Appointment Date/Time Appointment Type Appointme nt Facility Name Aug 20, 2023 09:30 AM [facility] Aug 21, 2023 11:00 AM [facility] Aug 27, 2023 10:00 AM AMBULATORY - NONE [facility] Aug 27, 2023 11:00 AM AMBULATORY - REHAB MEDICIN E [facility] Aug 28, 2023 02:10 PM AMBULATORY - NONE [facility] Social History: Smoking Status (Most current) and Tobacco Use (All prior to encounter date) This section includes the most current, and the historical, smoking and tobacco- related health factors from the [place] facility where the Encounter took place. Current Smoking Status This section includes the most current smoking, or tobacco-related health factor, from the [place] facility where the Encounter took place. Date/Time Current Smoking Status Comment Facil ity Jan 17, 2023 10:45 AM VA-TOBACCO FORMER USER [facility] Tobacco Use History This section includes a history of the smoking, or tobacco-related health factors, that were collected on or before the date of the Encounter. The data comes from the [place] facility where the Encounter took place. Date/Time Smoking Status/Tobacco Use Comment F acility Jan 17, 2023 10:45 AM VA-TOBACCO QUIT 15 YRS OR MORE [facility] Feb 01, 2022 10:15 AM VA-TOBACCO FORMER USER [facility] Feb 01, 2022 10:15 AM VA-TOBACCO QUIT 15 YRS OR MORE [facility] Sep 28, 2020 03:20 PM VA-TOBACCO FORMER USER [facility] Sep 28, 2020 03:20 PM VA-TOBACCO QUIT 15 YRS OR MORE [facility] Dec 25, 2019 10:30 AM VA-TOBACCO FORMER USER [facility] Dec 25, 2019 10:30 AM VA-TOBACCO QUIT 15 YRS OR MORE [facility] Feb 21, 2018 11:12 AM VA-TOBACCO FORMER USER [facility] Feb 21, 2018 11:12 AM VA-TOBACCO QUIT 15 YRS OR MORE [facility] August 08, 2017 11:28 AM FORMER TOBACCO USER 7Y OR GREATE R [facility] Aug 22, 2016 07:47 AM FORMER TOBACCO USER 7Y OR GREATE R [facility] Aug 23, 2015 09:50 AM FORMER TOBACCO USER 7Y OR GREATE R [facility] Aug 13, 2014 08:34 AM LIFETIME NON-TOBACCO USER [facility] Aug 11, 2013 07:48 AM LIFETIME NON-TOBACCO USER [facility] Advance Directives: All historical and current Section Date Range: From patient's date of to the date document was created. This section includes ALL of a patient's completed or amended [place] Advance and Rescinded Directives. The entries below indicate that a directive exists for the patient, but an actual copy is not included with this document. The data comes from all [place] facilities. Date Advance Directives Provider Source Aug 13, 2014 ADVANCE DIRECTIVE VANDANA MAURICE [facility] Aug 13, 2014 ADVANCE DIRECTIVE DISCUSSION JOSAFATVANDANA [facility] May 06, 2007 ADVANCE DIRECTIVE MAYITO PIERRE [facility] Encounter Notes: All associated encounter notes This section contains the clinical notes associated to the Encounter. Date/Time Encounter Note(s) Provider Source Jul 10, 2023 04:03 PM PHARMACY NOTE: LOCAL TITLE: PHARMACY NON VA CARE MEDICATIONS STANDARD TITLE: PHARMACY NOTE DATE OF NOTE: JUL 10, 2023@16:03 ENTRY DATE: JUL 10, 2023@16:03:34 AUTHOR: NELLY CRANDALL EXP COSIGNER: URGENCY: STATUS: COMPLETED from NON-VA Provider: FATMATA ISAAC Date eRX received: JUL 10, 2023 Outside (NON-VA) provider not authorized to write for prescription(s) through [place] pharmacy. Prescription request REDIRECTED via FAX to one of the following for review: [X][facility] (Dual) Care [ ]Other: eRx Prescription Information: eRx Reference #: [id number] eRx Drug: citalopram 10 mg tablet (CeleXA) eRx Qty: 63 eRx Refills: 0 eRx Days Supply: eRx Written Date: JUL 10, 2023 eRx Issue Date: Prohibit Renewals: No eRx Sig: Take 1 tablet (10 mg total) by mouth daily for 7 days, THEN 2 tablets (20 mg total) daily for 28 days. /valarie/ NELLY CRANDALL Pharmacist Signed: 07/10/2023 16:[address] [facility]
--- OUTSIDE RECORDS SUMMARY | 2023-10-08 12:25 | XMS_ITS | Encounter Summary ---
Author Name [facility] [facility] [place] Organization [facility] [place] Address [address] [place] [address] Care Team Providers Care Weeder Name Role Phone JI DUMONT Primary Care [...] Ochoa's Name Patient's Relationship to Policy Ochoa [facility] (R) MEDICARE [facility] ([facility]) Mar 12, 2015 [id number] [phone] BARRY GONZALEZ [facility] ([facility]) MEDICARE ADVANTAGE [facility] Mar 12, 2015 [id number] [phone] BARRY GONZALEZ [facility] (WNR) MEDICARE ADVANTAGE [facility] (WNR) Mar 12, 2015 [id number] [phone] JUSTYNAPAMELABARRY PATEL PATIENT [place] BLUE COMPL E Mar 12, 2016 [id number] [phone] LISABARRY BLUE SHIELD [facility] (WN) MEDICARE ADVANTAGE [facility] ([facility]) Mar 12, 2015 [id number] BARRY GONZALEZ PATIENT MEDICARE ([place]NR) MEDICARE (M) PART A Mar 12, 2000 PART A [id number] [phone] BARRY GONZALEZ PATIENT Selected Encounter This section includes the information on record at [place] for the Encounter. Date/Time Encounter Type Encounter Description Reason Pro vider Source July 30, 2023 08:00 AM Outpatient Encounter COMMUNITY CARE CONSULT IHE Encounter Template Text not used by [place] Plan of Treatment: Future Appointments (+ 6 months) and Future Tests (+/- 45 days) The Plan of Treatment section includes future care activities for the patient from all [place] [facility]. This section includes future appointments and future orders which are active, pending or scheduled. Future Appointments This section includes appointments that were scheduled to occur 6 months from the date of the Encounter, up to a maximum of 20 appointments. The data comes from all [facility]. Appointment Date/Time Appointment Type Appointme nt Facility Name Aug 20, 2023 09:30 AM AM[facility]ULATORY [facility] Aug 21, 2023 11:00 AM AMBULATORY - NONE [facility] Aug 27, 2023 10:00 AM AMBULATORY - NONE [facility] Aug 27, 2023 11:00 AM AMBULATORY - REHAB MEDICIN E [facility] Aug 28, 2023 02:10 PM AMBULATORY - NONE [facility] Active, Pending, and Scheduled Orders This section includes a listing of several types of active, pending, and scheduled orders, including clinic medications orders, diagnostic test orders, procedure orders and consult orders; where the start date of the order is 45 days before the date of the Encounter or 45 days after the date of theEncounter. The data comes from all [facility]. Test Date/Time Test Type Test Details Facility Name Aug 27, 2023 10:00 AM Laboratory - Chemi stry Order ALBUMIN/CREATININE RATIO URINE URINE WC ONCE [facility] Aug 27, 2023 10:00 AM Laboratory - Chemi stry Order HEMOGLOBIN A1C BLOOD [facility] Lab Results: +/- 30 days of the encounter This section includes the Chemistry and Hematology Lab Results on record with [place] for the patient. Radiology Reports and Pathology Reports are provided separately, in subsequent sections. Lab Results This section contains the Chemistry/Hematology Results that were resulted 30 days before or 30 daysafter the date of the Encounter. Date/Time Source Result Type Result - Unit Interpretation Reference Range Comment Aug 27, 2023 09:49 AM [facility] CREATININE(INCLUDES EGFR) Specimen Type: PLASMA No comment entered. Ordering Provider: MIKAL DANIELSON Report Released Date/Time: Aug 13, 2023 09:15 AM Reporting Lab: [facility] [id number] Performing Lab: [facility] [id number] CREATININE 1.3 mg/dL H 0.7-1.2 .CREAT EGFR(CKD-EPI ) 56 L >60 Aug 27, 2023 09:49 AM [facility] ALT/SGPT Specimen Type: PLASMA No comment entered. Ordering Provider: MIKAL DANIELSON Report Released Date/Time: Aug 13, 2023 09:15 AM Reporting Lab: [facility] [id number] Performing Lab: [facility] [phone] ALT/SGPT 21 U/L <55 Aug 27, 2023 09:49 AM [facility] AST/SGOT Specimen Type: PLASMA No comment entered. Ordering Provider: MIKAL DANIELSON Report Released Date/Time: Aug 13, 2023 09:15 AM Reporting Lab: [facility] [id number] Performing Lab: [facility] [phone] AST/SGOT 21 U/L <34 Aug 27, 2023 09:49 AM [facility] CBC Specimen Type: BLOOD No comment entered. Ordering Provider: MIKAL DANIELSON Report Released Date/Time: Aug 13, 2023 09:15 AM Reporting Lab: [facility] [phone] Performing Lab: [facility] [id number] WBC 7.02 10*3/uL 4.0-11.0 RBC 4.25 10*6/uL L 4.6-6.2 HGB 13.7 g/dL 13.5-17.9 HCT 39.0 L 41-54 MCV 91.8 fL 80-100 MCH 32.2 pg 27-33 MCHC 35.1 g/dL 32.0-37.5 PLT 207 10*3/uL 150-400 MPV 8.4 fL 7.4-10.4 RDW 12.3 11.5-14.5 Social History: Smoking Status (Most current) and Tobacco Use (All prior to encounter date) This section includes the most current, and the historical, smoking and tobacco- related health factors from the [place] facility where the Encounter took place. Current Smoking Status This section includes the most current smoking, or tobacco-related health factor, from the [place] facility where the Encounter took place. Date/Time Current Smoking Status Comment Facil ity Jan 17, 2023 10:45 AM VA-TOBACCO FORMER USER [facility] Tobacco Use History This section includes a history of the smoking, or tobacco-related health factors, that were collected on or before the date of the Encounter. The data comes from the [place] facility where the Encounter took place. Date/Time Smoking Status/Tobacco Use Comment F acility Jan 17, 2023 10:45 AM VA-TOBACCO QUIT 15 YRS OR MORE [facility] Feb 01, 2022 10:15 AM VA-TOBACCO FORMER USER [facility] Feb 01, 2022 10:15 AM VA-TOBACCO QUIT 15 YRS OR MORE [facility] Sep 28, 2020 03:20 PM VA-TOBACCO FORMER USER [facility] Sep 28, 2020 03:20 PM VA-TOBACCO QUIT 15 YRS OR MORE [facility] Dec 25, 2019 10:30 AM VA-TOBACCO FORMER USER [facility] Dec 25, 2019 10:30 AM VA-TOBACCO QUIT 15 YRS OR MORE [facility] Feb 21, 2018 11:12 AM VA-TOBACCO FORMER USER [facility] Feb 21, 2018 11:12 AM VA-TOBACCO QUIT 15 YRS OR MORE [facility] August 08, 2017 11:28 AM FORMER TOBACCO USER 7Y OR GREATE R [facility] Aug 22, 2016 07:47 AM FORMER TOBACCO USER 7Y OR GREATE R [facility] Aug 23, 2015 09:50 AM FORMER TOBACCO USER 7Y OR GREATE R [facility] Aug 13, 2014 08:34 AM LIFETIME NON-TOBACCO USER [facility] Aug 11, 2013 07:48 AM LIFETIME NON-TOBACCO USER [facility] Advance Directives: All historical and current Section Date Range: From patient's date of to the date document was created. This section includes ALL of a patient's completed or amended [place] Advance and Rescinded Directives. The entries below indicate that a directive exists for the patient, but an actual copy is not included with this document. The data comes from all [place] facilities. Date Advance Directives Provider Source Aug 13, 2014 ADVANCE DIRECTIVE VANDANA MAURICE [facility] Aug 13, 2014 ADVANCE DIRECTIVE DISCUSSION VANDANA MAURICE [facility] May 06, 2007 ADVANCE DIRECTIVE MAYITO PIERRE Shaji [facility] Encounter Notes: All associated encounter notes This section contains the clinical notes associated to the Encounter. Date/Time Encounter Note(s) Provider Source July 30, 2023 08:00 AM NONVA NOTE: LOCAL TITLE: COMMUNITY CARE PRE-AUTH LETTER (AUTOPRINT) STANDARD TITLE: NONVA NOTE DATE OF NOTE: JULY 30, 2023@08:00 ENTRY DATE: JULY 30, 2023@08:00:40 AUTHOR: [place]PE [place] EXP COSIGNER: URGENCY: STATUS: COMPLETED July BARRY GONZALEZ [address], [place] [address] Dear BARRY GONZALEZ, Your VA provider has referred you to a provider within the community for care. Your medical care for COMMUNITY CARE-DENTAL GEN SERV has been authorized with the community care provider listed below. DO NOT REPORT TO THE [facility] Provider info: Care has been approved for the following vendor: Office name, address, and phone number: [facility] [address] [address] PH: [phone] Please contact the identified provider to schedule your community appointment. If you need assistance with this appointment, please call your facility community care office [facility] Office of Community Care at [phone] during the hours of 8:30AM - 3:00PM. Please follow up with your local [facility] community care office once this is scheduled. This step is needed to ensure your referral duration is maximized and the [place] has accurate referral information for billing purposes. Authorization Number: [id number] Referral Issue Date: July Expiration Date: Jan (subject to change based on first appointment) If you are unable to schedule this appointment or the appointment is no longer needed, please contact the community provider above for notification/rescheduling and then call the [facility] Office of Community Care at [phone] during the hours of 8:30AM - 3:00PM. If you need additional care/services not mentioned above or your authorization has and additional care is needed, please contact your primary care provider for a new referral. To review all care/service(s) approved under your referral, please go to the following link: [employer]([email or web address] ) Co-Payments: If you are required to pay a VA co-payment, you will be billed by the [place] for each authorized visit that you attend. However, you are NOT REQUIRED to make co-payments to a community provider. Thank you for the opportunity to serve you. Sincerely, [place] Community Care (VACC) /valarie/ GIUSEPPE [place] [employer] Signed: 07/30/2023 08:01 [facility] [place] [facility]
--- OUTSIDE RECORDS SUMMARY | 2023-10-08 12:26 | XMS_ITS | Encounter Summary ---
Author Name [facility] [place] Address [address] [place] [address] Care Team Providers Care Storeperson Name Role Phone JI DUMONT Primary Care [...] Ochoa's Name Patient's Relationship to Policy Ochoa [facility] (R) MEDICARE [facility] ([facility]) Mar 12, 2015 [id number] BARRY GONZALEZ [facility] ([facility]) MEDICARE ADVANTAGE SENIO R GOLD INDIV IDU Mar 12, 2015 [id number] [phone] BARRY GONZALEZ [facility] (WN) MEDICARE [facility] ([facility]) Mar 12, 2015 [id number] [phone] JUSTYNAPAMELABARRY PATEL PATIENT BLUE CROSS OF [place] RETIREE PLATI NUM BLUE COMPL E Mar 12, 2016 [id number] LISABARRY BLUE SHIELD [facility] ([facility]) MEDICARE [facility] ([facility]) Mar 12, 2015 [id number] BARRY GONZALEZ PATIENT MEDICARE (WNR) MEDICARE (M) PART A Mar 12, 2000 PART A [id number] [phone] BARRY GONZALEZ PATIENT Selected Encounter This section includes the information on record at [place] for the Encounter. Date/Time Encounter Type Encounter Description Reason Pro vider Source Aug 13, 2023 09:13 AM Outpatient Encounter CLINICAL PHARMACY IHE Encounter Template Text not used by [place] Plan of Treatment: Future Appointments (+ 6 months) and Future Tests (+/- 45 days) The Plan of Treatment section includes future care activities for the patient from all [place] [facility] This section includes future appointments and future orders which are active, pending or scheduled. Future Appointments This section includes appointments that were scheduled to occur 6 months from the date of the Encounter, up to a maximum of 20 appointments. The data comes from all [facility]. Appointment Date/Time Appointment Type Appointme nt Facility Name Aug 20, 2023 09:30 AM [facility] Aug 21, 2023 11:00 AM [facility] Aug 27, 2023 10:00 AM AMBULATORY - NONE [facility] Aug 27, 2023 11:00 AM AMBULATORY - REHAB MEDICIN E [facility] Aug 28, 2023 02:10 PM AMBULATORY - NONE [facility] Active, Pending, and Scheduled Orders This section includes a listing of several types of active, pending, and scheduled orders, including clinic medications orders, diagnostic test orders, procedure orders and consult orders; where the start date of the order is 45 days before the date of the Encounter or 45 days after the date of theEncounter. The data comes from all [facility]. Test Date/Time Test Type Test Details Facility Name Aug 27, 2023 10:00 AM Laboratory - Chemi stry Order ALBUMIN/CREATININE RATIO URINE URINE WC ONCE [facility] Aug 27, 2023 10:00 AM Laboratory - Chemi stry Order HEMOGLOBIN A1C BLOOD [facility] Lab Results: +/- 30 days of the encounter This section includes the Chemistry and Hematology Lab Results on record with [place] for the patient. Radiology Reports and Pathology Reports are provided separately, in subsequent sections. Lab Results This section contains the Chemistry/Hematology Results that were resulted 30 days before or 30 daysafter the date of the Encounter. Date/Time Source Result Type Result - Unit Interpretation Reference Range Comment Aug 27, 2023 09:49 AM [facility] AST/SGOT Specimen Type: PLASMA No comment entered. Ordering Provider: MIKAL DANIELSON Report Released Date/Time: Aug 13, 2023 09:15 AM Reporting Lab: [facility] [id number] Performing Lab: [facility] [id number] AST/SGOT 21 U/L <34 Aug 27, 2023 09:49 AM [facility] CREATININE(INCLUDES EGFR) Specimen Type: PLASMA No comment entered. Ordering Provider: MIKAL DANIELSON Report Released Date/Time: Aug 13, 2023 09:15 AM Reporting Lab: [facility] [id number] Performing Lab: [facility] [id number] CREATININE 1.3 mg/dL H 0.7-1.2 .CREAT EGFR(CKD-EPI ) 56 L >60 Aug 27, 2023 09:49 AM [facility] ALT/SGPT Specimen Type: PLASMA No comment entered. Ordering Provider: MIKAL DANIELSON Report Released Date/Time: Aug 13, 2023 09:15 AM Reporting Lab: [facility] [id number] Performing Lab: [facility] [phone] ALT/SGPT 21 U/L <55 Aug 27, 2023 09:49 AM [facility] CBC Specimen Type: BLOOD No comment entered. Ordering Provider: MIKAL DANIELSON Report Released Date/Time: Aug 13, 2023 09:15 AM Reporting Lab: [facility] [phone] Performing Lab: [facility] [id number] WBC 7.02 10*3/uL 4.0-11.0 RBC 4.25 10*6/uL [...] ity Jan 17, 2023 10:45 AM VA-TOBACCO QUIT 15 YRS OR MORE [facility] Tobacco Use History This section includes a history of the smoking, or tobacco-related health factors, that were collected on or before the date of the Encounter. The data comes from the [place] facility where the Encounter took place. Date/Time Smoking Status/Tobacco Use Comment F acility Jan 17, 2023 10:45 AM VA-TOBACCO QUIT 15 YRS OR MORE [facility] Feb 01, 2022 10:15 AM VA-TOBACCO FORMER USER [facility] Feb 01, 2022 10:15 AM VA-TOBACCO QUIT 15 YRS OR MORE [facility] Sep 28, 2020 03:20 PM VA-TOBACCO FORMER USER [facility] Sep 28, 2020 03:20 PM VA-TOBACCO QUIT 15 YRS OR MORE [facility] Dec 25, 2019 10:30 AM VA-TOBACCO FORMER USER [facility] Dec 25, 2019 10:30 AM VA-TOBACCO QUIT 15 YRS OR MORE [facility] Feb 21, 2018 11:12 AM VA-TOBACCO FORMER USER [facility] Feb 21, 2018 11:12 AM VA-TOBACCO QUIT 15 YRS OR MORE [facility] August 08, 2017 11:28 AM FORMER TOBACCO USER 7Y OR GREATE R [facility] Aug 22, 2016 07:47 AM FORMER TOBACCO USER 7Y OR GREATE R [facility] Aug 23, 2015 09:50 AM FORMER TOBACCO USER 7Y OR GREATE R [facility] Aug 13, 2014 08:34 AM LIFETIME NON-TOBACCO USER [facility] Aug 11, 2013 07:48 AM LIFETIME NON-TOBACCO USER [facility] Advance Directives: All historical and current Section [...] 13, 2014 ADVANCE DIRECTIVE DISCUSSION VANDANA MAURICE [facility] Aug 13, 2014 ADVANCE DIRECTIVE VANDANA MAURICE [facility] May 06, 2007 ADVANCE DIRECTIVE NASIMAEMIGDIOMAYITO MAHONEY Shaji [facility] Encounter Notes: All associated encounter notes This section contains the clinical notes associated to the Encounter. Date/Time Encounter Note(s) Provider Source Aug 13, 2023 09:13 AM LETTERS: LOCAL TITLE: FOLLOW UP RESULTS LETTER STANDARD TITLE: LETTERS DATE OF NOTE: AUG 13, 2023@09:13 ENTRY DATE: AUG 13, 2023@09:13:44 AUTHOR: SUDHEER GALLO EXP COSIGNER: URGENCY: STATUS: COMPLETED SUBJECT: Anticoag [facility] [address] [address] Aug BARRY GONZALEZ [address] [facility] [address] Dear [place]: We are following up on your anticoagulant (blood thinner) medication, Rivaroxaban. We require non-fasting labs (complete blood count, serum creatinine, liver function) every 6-12 months to ensure your anticoagulant is safe to continue. The complete blood count measures hemoglobin and platelets, which can alert us to possible bleeding issues. The creatinine measures kidney function and helps us determine the correct medication dose. The liver function monitors that your liver is working well. You are due for labs. We scheduled your lab appointment for Aug at 10:00am in the [facility] to coordinate with another appointment. Please report to the lab area for this appointment. If you would like to change this appointment, please call us at [phone], option 1. We hope you are doing well. Thank you for your service. Sincerely, [facility] Team --- Phone number: [phone] -option 1 to schedule or reschedule an appointment -option 2 to refill medications or call the phone number on the bottle -option 3 for all other communication Fax number: [phone] Clinic Hours: Sunday-Sunday, 8:00am to 4:00pm (excluding Federal holidays) SUDHEER GALLO LABOR RELATIONS OR PERSONNEL NEGOTIATOR SUDHEER GALLO [facility]
--- OUTSIDE RECORDS SUMMARY | 2023-10-08 12:26 | XMS_ITS | Encounter Summary ---
Author Name [facility] [place] Address [address] [place] [address] Care Team Providers Care Customer Experience Analyst Name Role Phone JI DUMONT Primary Care [...] Ochoa's Name Patient's Relationship to Policy Ochoa [facility] (WNR) MEDICARE [facility] ([facility]) Mar 12, 2015 [id number] BARRY GONZALEZ DANIEL [facility] (WNR) MEDICARE ADVANTAGE [facility] (R) Mar 12, 2015 [id number] [phone] JUSTYNAPAMELABARRY PATEL DANIEL [facility] (WNR) MEDICARE ADVANTAGE SENIO R GOLD INDIV IDU Mar 12, 2015 [id number] [phone] JUSTYNAANGELABARRY PATIENT BLUE CROSS OF [place] RETIREE PLATI NUM BLUE COMPL E Mar 12, 2016 [id number] [phone] LISABARRY BLUE SHIELD [facility] (WNR) MEDICARE ADVANTAGE [facility] (R) Mar 12, 2015 [id number] BARRY GONZALEZ PATIENT MEDICARE (WNR) MEDICARE (M) PART A Mar 12, 2000 PART A [id number] [phone] BARRY GONZALEZ PATIENT Selected Encounter This section includes the information on record at [place] for the Encounter. Date/Time Encounter Type Encounter Description Reason Pro vider Source August 08, 2023 12:42 PM Outpatient Encounter TELEPHONE TRIAGE IHE Encounter Template Text not used by [place] Plan of Treatment: Future Appointments (+ 6 months) and Future Tests (+/- 45 days) The Plan of Treatment section includes future care activities for the patient [facility] [place] [facility]. This section includes future appointments and future orders which are active, pending or scheduled. Future Appointments This section includes appointments that were scheduled to occur 6 months from the date of the Encounter, up to a maximum of 20 appointments. The data comes from all [facility]. Appointment Date/Time Appointment Type Appointme nt Facility Name Aug 20, 2023 09:30 AM [facility] Aug 21, 2023 11:00 [facility] Aug 27, 2023 10:00 AM AMBULATORY - NONE [facility] Aug 27, 2023 11:00 AM AMBULATORY - REHAB MEDICIN E [facility] Aug 28, 2023 02:10 PM AMBULATORY - NONE [facility] Active, Pending, and Scheduled Orders This section includes a listing of several types of active, pending, and scheduled orders, including clinic medications orders, diagnostic test orders, procedure orders and consult orders; where the start date of the order is 45 days before the date of the Encounter or 45 days after the date of theEncounter. The data comes from all [facility]. Test Date/Time Test Type Test Details Facility Name Aug 27, 2023 10:00 AM Laboratory - Chemi stry Order ALBUMIN/CREATININE RATIO URINE URINE WC ONCE [facility] Aug 27, 2023 10:00 AM Laboratory - Chemi stry Order HEMOGLOBIN A1C BLOOD [facility] Lab Results: +/- 30 days of the encounter This section includes the Chemistry and Hematology Lab Results on record with [place] for the patient. Radiology Reports and Pathology Reports are provided separately, in subsequent sections. Lab Results This section contains the Chemistry/Hematology Results that were resulted 30 days before or 30 daysafter the date of the Encounter. Date/Time Source Result Type Result - Unit Interpretation Reference Range Comment Aug 27, 2023 09:49 AM [facility] CREATININE(INCLUDES EGFR) Specimen Type: PLASMA No comment entered. Ordering Provider: MIKAL DANIELSON Report Released Date/Time: Aug 13, 2023 09:15 AM Reporting Lab: [facility] [id number] Performing Lab: [facility] [phone] CREATININE 1.3 mg/dL H 0.7-1.2 .CREAT EGFR(CKD-EPI ) 56 L >60 Aug 27, 2023 09:49 AM [facility] AST/SGOT Specimen Type: PLASMA No comment entered. Ordering Provider: MIKAL DANIELSON Report Released Date/Time: Aug 13, 2023 09:15 AM Reporting Lab: [facility] [id number] Performing Lab: [facility] [id number] AST/SGOT 21 U/L <34 Aug 27, 2023 09:49 AM [facility] ALT/SGPT Specimen Type: PLASMA No comment entered. Ordering Provider: MIKAL DANIELSON Report Released Date/Time: Aug 13, 2023 09:15 AM Reporting Lab: [facility] [id number] Performing Lab: [facility] [id number] ALT/SGPT 21 U/L <55 Aug 27, 2023 09:49 AM [facility] CBC Specimen Type: BLOOD No comment entered. Ordering Provider: MIKAL DANIELSON Report Released Date/Time: Aug 13, 2023 09:15 AM Reporting Lab: [facility] [id number] Performing Lab: [facility] [id number] WBC 7.02 10*3/uL 4.0-11.0 RBC 4.25 10*6/uL [...] and tobacco- related health factors from the [place] facility where the Encounter took place. Current Smoking Status This section includes the most current smoking, or tobacco-related health factor, from the [place] facility where the Encounter took place. Date/Time Current Smoking Status Comment Facil ity Jan 17, 2023 10:45 AM VA-TOBACCO FORMER USER [facility] Tobacco Use History This section includes a history of the smoking, or tobacco-related health factors, that were collected on or before the date of the Encounter. The data comes from the [place] facility where the Encounter took place. Date/Time Smoking Status/Tobacco Use Comment F acility Jan 17, 2023 10:45 AM VA-TOBACCO QUIT 15 YRS OR MORE [facility] Feb 01, 2022 10:15 AM VA-TOBACCO FORMER USER [facility] Feb 01, 2022 10:15 AM VA-TOBACCO QUIT 15 YRS OR MORE [facility] Sep 28, 2020 03:20 PM VA-TOBACCO FORMER USER [facility] Sep 28, 2020 03:20 PM VA-TOBACCO QUIT 15 YRS OR MORE [facility] Dec 25, 2019 10:30 AM VA-TOBACCO FORMER USER [facility] Dec 25, 2019 10:30 AM VA-TOBACCO QUIT 15 YRS OR MORE [facility] Feb 21, 2018 11:12 AM VA-TOBACCO FORMER USER [facility] Feb 21, 2018 11:12 AM VA-TOBACCO QUIT 15 YRS OR MORE [facility] August 08, 2017 11:28 AM FORMER TOBACCO USER 7Y OR GREATE R [facility] Aug 22, 2016 07:47 AM FORMER TOBACCO USER 7Y OR GREATE R [facility] Aug 23, 2015 09:50 AM FORMER TOBACCO USER 7Y OR GREATE R [facility] Aug 13, 2014 08:34 AM LIFETIME NON-TOBACCO USER [facility] Aug 11, 2013 07:48 AM LIFETIME NON-TOBACCO USER [facility] Advance Directives: All historical and current Section Date Range: From patient's date of to the date document was created. This section includes ALL of a patient's completed or amended [place] Advance and Rescinded Directives. The entries below indicate that a directive exists for the patient, but an actual copy is not included with this document. The data comes from all [place] facilities. Date Advance Directives Provider Source Aug 13, 2014 ADVANCE DIRECTIVE SHAHRIAR MAURICEN RADHA [facility] Aug 13, 2014 ADVANCE DIRECTIVE DISCUSSION SHAHRIAR MAURICEN [facility] May 06, 2007 ADVANCE DIRECTIVE MAYITO PIERRE [facility] Encounter Notes: All associated encounter notes This section contains the clinical notes associated to the Encounter. Date/Time Encounter Note(s) Provider Source August 08, 2023 12:42 PM PHARMACY NOTE: LOCAL TITLE: [facility]: PHARMACY I STANDARD TITLE: PHARMACY NOTE DATE OF NOTE: AUGUST 08, 2023@12:42 ENTRY DATE: AUGUST 08, 2023@12:42:38 AUTHOR: ADDISON PETIT EXP COSIGNER: URGENCY: STATUS: COMPLETED Outbound call: [facility]: Reason for outbound call: Called patient to confirm dosing on the titrated prescription. Name of medication requested through [facility] by patient: CITALOPRAM HYDROBROMIDE 20MG TAB Action taken: Left voicemail for patient regarding confirmation on dosing. Prescription was forwarded to [facility] pharmacist via Messaging Sr. Manager to be converted to maintenance dose and mailed from [facility]. /valarie/ ADDISON PETIT CPHT V23 [facility] CLINICAL REHABILITATION SPECIALIST Signed: 08/08/2023 12:43 ADDISON PETIT [facility]
--- OUTSIDE RECORDS SUMMARY | 2023-10-08 12:26 | XMS_ITS | Encounter Summary ---
Author Name [facility] [place] [facility] [place] [facility] [place] [facility] [place] Address [address] [place] [address] Care Team Providers Care Tip Bander Name Role Phone JULIA JI Primary Care [...] Patient's Relationship to Policy [facility] (R) MEDICARE [facility] ([facility]) Mar 12, 2015 [id number] BARRY GONZALEZ [facility] ([facility]) MEDICARE ADVANTAGE [facility] Mar 12, 2015 [id number] [phone] BARRY GONZALEZ [facility] ([place]) MEDICARE ADVANTAGE [facility] ([facility]) Mar 12, 2015 [id number] [phone] LISABARRY PATIENT [facility] RETIREE PLATI NUM BLUE COMPL E Mar 12, 2016 [id number] [phone] LISA BARRY JENNIFFER [facility] (WN) MEDICARE ADVANTAGE [facility] (WNR) Mar 12, 2015 [id number] BARRY GONZALEZ PATIENT MEDICARE ([place]NR) MEDICARE (M) PART A Mar 12, 2000 PART A [id number] BARRY GONZALEZ PATIENT Selected Encounter This section includes the information on record at [place] for the Encounter. Date/Time Encounter Type Encounter Description Reason Pro vider Source Aug 16, 2023 11:17 AM Outpatient Encounter PRIMARY CARE/MEDICINE IHE Encounter Template Text not used by [place] Plan of Treatment: Future Appointments (+ 6 months) and Future Tests (+/- 45 days) The Plan of Treatment section includes [facility] the [facility] [place] [facility] This section includes future appointments and future orders which are active, pending or scheduled. Future Appointments This section includes appointments that were scheduled to occur 6 months from the date of the Encounter, up to a maximum of 20 appointments. The data comes from all [facility]. Appointment Date/Time Appointment Type Appointme nt Facility Name Aug 20, 2023 09:30 AM AMBULATORY - MEDICINE [facility] Aug 21, 2023 11:00 AM [facility] Aug 27, 2023 10:00 AM AMBULATORY - NONE [facility] Aug 27, 2023 11:00 AM AMBULATORY - REHAB MEDICIN E [facility] Aug 28, 2023 02:10 PM AMBULATORY - NONE [facility] Active, Pending, and Scheduled Orders This section includes a listing of several types of active, pending, and scheduled orders, including clinic medications orders, diagnostic test orders, procedure orders and consult orders; where the start date of the order is 45 days before the date of the Encounter or 45 days after the date of theEncounter. The data comes from all [facility]. Test Date/Time Test Type Test Details Facility Name Aug 27, 2023 10:00 AM Laboratory - Chemi stry Order ALBUMIN/CREATININE RATIO URINE URINE WC ONCE [facility] Aug 27, 2023 10:00 AM Laboratory - Chemi stry Order HEMOGLOBIN A1C BLOOD [facility] Lab Results: +/- 30 days of the encounter This section includes the Chemistry and Hematology Lab Results on record with [place] for the patient. Radiology Reports and Pathology Reports are provided separately, in subsequent sections. Lab Results This section contains the Chemistry/Hematology Results that were resulted 30 days before or 30 daysafter the date of the Encounter. Date/Time Source Result Type Result - Unit Interpretation Reference Range Comment Aug 27, 2023 09:49 AM [facility] AST/SGOT Specimen Type: PLASMA No comment entered. Ordering Provider: MIKAL DANIELSON Report Released Date/Time: Aug 13, 2023 09:15 AM Reporting Lab: [facility] [id number] Performing Lab: [facility] [id number] AST/SGOT 21 U/L <34 Aug 27, 2023 09:49 AM [facility] ALT/SGPT Specimen Type: PLASMA No comment entered. Ordering Provider: MIKAL DANIELSON Report Released Date/Time: Aug 13, 2023 09:15 AM Reporting Lab: [facility] [id number] Performing Lab: [facility] [id number] ALT/SGPT 21 U/L <55 Aug 27, 2023 09:49 AM [facility] CREATININE(INCLUDES EGFR) Specimen Type: PLASMA No comment entered. Ordering Provider: MIKAL DANIELSON Report Released Date/Time: Aug 13, 2023 09:15 AM Reporting Lab: [facility] [id number] Performing Lab: [facility] [id number] CREATININE 1.3 mg/dL H 0.7-1.2 .CREAT EGFR(CKD-EPI ) 56 L >60 Aug 27, 2023 09:49 AM [facility] CBC Specimen Type: BLOOD No comment entered. Ordering Provider: MIKAL DANIELSON Report Released Date/Time: Aug 13, 2023 09:15 AM Reporting Lab: [facility] [id number] Performing Lab: [facility] [id number] WBC 7.02 10*3/uL 4.0-11.0 RBC 4.25 10*6/uL [...] and tobacco- related health factors from the [place] facility where the Encounter took place. Current Smoking Status This section includes the most current smoking, or tobacco-related health factor, from the [place] facility where the Encounter took place. Date/Time Current Smoking Status Comment Facil ity Jan 17, 2023 10:45 AM VA-TOBACCO FORMER USER [facility] Tobacco Use History This section includes a history of the smoking, or tobacco-related health factors, that were collected on or before the date of the Encounter. The data comes from the [place] facility where the Encounter took place. Date/Time Smoking Status/Tobacco Use Comment F acility Jan 17, 2023 10:45 AM VA-TOBACCO QUIT 15 YRS OR MORE [facility] Feb 01, 2022 10:15 AM VA-TOBACCO FORMER USER [facility] Feb 01, 2022 10:15 AM VA-TOBACCO QUIT 15 YRS OR MORE [facility] Sep 28, 2020 03:20 PM VA-TOBACCO FORMER USER [facility] Sep 28, 2020 03:20 PM VA-TOBACCO QUIT 15 YRS OR MORE [facility] Dec 25, 2019 10:30 AM VA-TOBACCO FORMER USER [facility] Dec 25, 2019 10:30 AM VA-TOBACCO QUIT 15 YRS OR MORE [facility] Feb 21, 2018 11:12 AM VA-TOBACCO FORMER USER [facility] Feb 21, 2018 11:12 AM VA-TOBACCO QUIT 15 YRS OR MORE [facility] August 08, 2017 11:28 AM FORMER TOBACCO USER 7Y OR GREATE R [facility] Aug 22, 2016 07:47 AM FORMER TOBACCO USER 7Y OR GREATE R [facility] Aug 23, 2015 09:50 AM FORMER TOBACCO USER 7Y OR GREATE R [facility] Aug 13, 2014 08:34 AM LIFETIME NON-TOBACCO USER [facility] Aug 11, 2013 07:48 AM LIFETIME NON-TOBACCO USER [facility] Advance Directives: All historical and current Section Date Range: From patient's date of to the date document was created. This section includes ALL of a patient's completed or amended [place] Advance and Rescinded Directives. The entries below indicate that a directive exists for the patient, but an actual copy is not included with this document. The data comes from all [place] facilities. Date Advance Directives Provider Source Aug 13, 2014 ADVANCE DIRECTIVE VANDANA MAURICE [facility] Aug 13, 2014 ADVANCE DIRECTIVE DISCUSSION VANDANA MAURICE [facility] May 06, 2007 ADVANCE DIRECTIVE MAYITO PIERRE [facility] Encounter Notes: All associated encounter notes This section contains the clinical notes associated to the Encounter. Date/Time Encounter Note(s) Provider Source Aug 16, 2023 11:17 AM REPORT OF CONTACT: LOCAL TITLE: PATIENT CONTACT NOTE STANDARD TITLE: REPORT OF CONTACT DATE OF NOTE: AUG 16, 2023@11:17 ENTRY DATE: AUG 16, 2023@11:18:06 AUTHOR: ELADIO LEWIS COSIGNER: URGENCY: STATUS: COMPLETED Patient contact Name of [place]: BARRY GONZALEZ JR Date & Time of Contact: Aug@11:18 Type of Contact: Telephone Reason for Contact: Reminder call : [facility] () 08/20/2023@0930. Spoke with , confirmed to join using link provided in e-mail 10 min prior to scheduled visit. no further questions or concerns at this time. /valarie/ ELADIO LEWIS [employer] Signed: 08/16/2023 11:20 ELADIO LEWIS [facility]
--- OUTSIDE RECORDS SUMMARY | 2023-10-08 12:27 | XMS_ITS | Encounter Summary ---
Author Name [facility] [place] [facility] [place] [facility] [place] [facility] [place] Address [address] [place] [address] Care Team Providers Care Patrol Inspector Name Role Phone EDDIE DUMONT Primary Care [...] Ochoa's Name Patient's Relationship to Policy Ochoa [facility] MEDICARE [facility] ([facility] Mar 12, 2015 [id number] [phone] BARRY GONZALEZ [facility] MEDICARE ADVANTAGE [facility] Mar 12, 2015 [id number] [phone] BARRY GONZALEZ PATIENT [facility] MEDICARE [facility] ([facility] Mar 12, 2015 [id number] [phone] JUSTYNAPAMELABARRY PATEL PATIENT [facility] RETIREE PLATI NUM BLUE COMPL E Mar 12, 2016 [id number] JUSTYNAPAMELABARRY PATEL [facility] ([facility] MEDICARE ADVANTAGE [facility] (WNR) Mar 12, 2015 [id number] BARRY GONZALEZ PATIENT MEDICARE (WNR) MEDICARE (M) PART A Mar 12, 2000 PART A [id number] [phone] BARRY GONZALEZ PATIENT Selected Encounter This section includes the information on record at [place] for the Encounter. Date/Time Encounter Type Encounter Description Reason Provider Source Aug 20, 2023 09:30 AM OFFICE O/P EST MOD 30 MIN PRIMARY CARE/MEDICINE ICD-10-CM E11.9 Type 2 diabetes mellitus without complications EDDIE DUMONT IHE Encounter Template Text not used by [place] Assessments - Encounter Diagnoses This section includes the primary and secondary diagnoses documented for the Encounter. Date/Time Primary/Secondary Diagnosis Diagnosis Name Provider Source Aug 20, 2023 10:23 AM PRIMARY Type 2 diabetes mellitus without complications EDDIE DUMONT [facility] Plan of Treatment: Future Appointments (+ 6 months) and Future Tests (+/- 45 days) The Plan of Treatment section includes future care activities for the patient from all [place] [facility] This section includes future appointments and future orders which are active, pending or scheduled. Future Appointments This section includes appointments that were scheduled to occur 6 months from the date of the Encounter, up to a maximum of 20 appointments. The data comes from all [facility]. Appointment Date/Time Appointment Type Appointme nt Facility Name Aug 21, 2023 11:00 AM AMBULATORY - NONE [facility] Aug 27, 2023 10:00 AM AMBULATORY - NONE [facility] Aug 27, 2023 11:00 AM AMBULATORY - REHAB MEDICIN E [facility] Aug 28, 2023 02:10 PM AMBULATORY - NONE [facility] Active, Pending, and Scheduled Orders This section includes a listing of several types of active, pending, and scheduled orders, including clinic medications orders, diagnostic test orders, procedure orders and consult orders; where the start date of the order is 45 days before the date of the Encounter or 45 days after the date of theEncounter. The data comes from all [facility]. Test Date/Time Test Type Test Details Facility Name Aug 27, 2023 10:00 AM Laboratory - Chemi stry Order ALBUMIN/CREATININE RATIO URINE URINE WC ONCE [facility] Aug 27, 2023 10:00 AM Laboratory - Chemi stry Order HEMOGLOBIN A1C BLOOD WC [facility] Lab Results: +/- 30 days of the encounter This section includes the Chemistry and Hematology Lab Results on record with [place] for the patient. Radiology Reports and Pathology Reports are provided separately, in subsequent sections. Lab Results This section contains the Chemistry/Hematology Results that were resulted 30 days before or 30 daysafter the date of the Encounter. Date/Time Source Result Type Result - Unit Interpretation Reference Range Comment Aug 27, 2023 09:49 AM [facility] AST/SGOT Specimen Type: PLASMA No comment entered. Ordering Provider: MIKAL DANIELSON Report Released Date/Time: Aug 13, 2023 09:15 AM Reporting Lab: [facility] [id number] Performing Lab: [facility] [id number] AST/SGOT 21 U/L <34 Aug 27, 2023 09:49 AM [facility] CREATININE(INCLUDES EGFR) Specimen Type: PLASMA No comment entered. Ordering Provider: MIKAL DANIELSON Report Released Date/Time: Aug 13, 2023 09:15 AM Reporting Lab: [facility] [id number] Performing Lab: [facility] [id number] CREATININE 1.3 mg/dL H 0.7-1.2 .CREAT EGFR(CKD-EPI ) 56 L >60 Aug 27, 2023 09:49 AM [facility] ALT/SGPT Specimen Type: PLASMA No comment entered. Ordering Provider: MIKAL DANIELSON Report Released Date/Time: Aug 13, 2023 09:15 AM Reporting Lab: [facility] [id number] Performing Lab: [facility] [id number] ALT/SGPT 21 U/L <55 Aug 27, 2023 09:49 AM [facility] CBC Specimen Type: BLOOD No comment entered. Ordering Provider: MIKAL DANIELSON Report Released Date/Time: Aug 13, 2023 09:15 AM Reporting Lab: [facility] [id number] Performing Lab: [facility] [phone] WBC 7.02 10*3/uL 4.0-11.0 RBC 4.25 10*6/uL [...] and tobacco- related health factors from the [place] facility where the Encounter took place. Current Smoking Status This section includes the most current smoking, or tobacco-related health factor, from the [place] facility where the Encounter took place. Date/Time Current Smoking Status Comment Facil ity Jan 17, 2023 10:45 AM VA-TOBACCO FORMER USER [facility] Tobacco Use History This section includes a history of the smoking, or tobacco-related health factors, that were collected on or before the date of the Encounter. The data comes from the [place] facility where the Encounter took place. Date/Time Smoking Status/Tobacco Use Comment F acility Jan 17, 2023 10:45 AM VA-TOBACCO QUIT 15 YRS OR MORE [facility] Feb 01, 2022 10:15 AM VA-TOBACCO FORMER USER [facility] Feb 01, 2022 10:15 AM VA-TOBACCO QUIT 15 YRS OR MORE [facility] Sep 28, 2020 03:20 PM VA-TOBACCO FORMER USER [facility] Sep 28, 2020 03:20 PM VA-TOBACCO QUIT 15 YRS OR MORE [facility] Dec 25, 2019 10:30 AM VA-TOBACCO FORMER USER [facility] Dec 25, 2019 10:30 AM VA-TOBACCO QUIT 15 YRS OR MORE [facility] Feb 21, 2018 11:12 AM VA-TOBACCO FORMER USER [facility] Feb 21, 2018 11:12 AM VA-TOBACCO QUIT 15 YRS OR MORE [facility] August 08, 2017 11:28 AM FORMER TOBACCO USER 7Y OR GREATE R [facility] Aug 22, 2016 07:47 AM FORMER TOBACCO USER 7Y OR GREATE R [facility] Aug 23, 2015 09:50 AM FORMER TOBACCO USER 7Y OR GREATE R [facility] Aug 13, 2014 08:34 AM LIFETIME NON-TOBACCO USER [facility] Aug 11, 2013 07:48 AM LIFETIME NON-TOBACCO USER [facility] Advance Directives: All historical and current Section Date Range: From patient's date of to the date document was created. This section includes ALL of a patient's completed or amended [place] Advance and Rescinded Directives. The entries below indicate that a directive exists for the patient, but an actual copy is not included with this document. The data comes from all [place] facilities. Date Advance Directives Provider Source Aug 13, 2014 ADVANCE DIRECTIVE DISCUSSION VANDANA MAURICE [facility] Aug 13, 2014 ADVANCE DIRECTIVE VANDANA MAURICE [facility] May 06, 2007 ADVANCE DIRECTIVE MAYITO PIERRE [facility] Encounter Notes: All associated encounter notes This section contains the clinical notes associated to the Encounter. 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 Since our last rogelio't, we increased semaglutide to 2 mg daily and reduce glargine to 20 units daily. #DM II - empagliflozin 25 mg daily - metformin 1000 mg twice daily - semaglutide 2 mg weekly - glargine 20 units daily; increase to 23 units daily. If BG still >150 after 3 days, increase further to 26 units daily. - Will message updated AM BG readings in 1 week via Adjusted meds as requested to match [facility] as noted in HPI. RTC: per prior Eddie Dumont MD General Internal Medicine [facility] A total of 30 minutes was spent on this visit reviewing previous notes, counseling the patient, ordering or interpreting tests, adjusting meds, and documenting the findings in the note. CC: f/u BG HPI This is a 77-year-old male with history of CAD s/p stenting, type 2 diabetes, unprovoked pulmonary embolism on rivaroxaban, coronary artery disease, recent diagnosis of prostate cancer status post TURP April 2023 for who presents to [facility] clinic to discuss his diabetes. Since our last rogelio't, we increased semaglutide to 2 mg daily and reduce glargine to 20 units daily. His last hemoglobin A1c at the [facility] was 6.9% 06/26/2023. Cr 1.16 w/ eGFR 64 08/08/2023. Microalbumin 16 g/mg 01/22/2023 [place]. A few med updates, now on metoprolol 25 mg twice daily and his tamsulosin has been discontinued. He has also been taking colase to soften his tool and wonders if I can [facility]. He says that generally his blood sugar has been okay. His fasting blood sugar this morning was 201 mg/dL. His 7-day fasting average is 177 mg/dL, the 14-day average is 177 mg/dL, and the 30-day average is 173 mg/dL. During our conversation, we realized the patient was actually taking 34 units *twice daily*rather than once daily, as reflected in our [facility]. He denies any low blood sugars, his weight has been stable between 203 and 205 pounds. UPDATED PROBLEM LIST Active problems - Computerized Problem List is the source for the followin. CKD stage 3 (SNOMED CT 936484815) 2. Hyperlipidemia (SNOMED CT 58850356) 3. Benign essential hypertension (SNOMED CT 5603748) 4. H/O: pulmonary embolus - on rivaroxaban 20 mg nightly - unprovoked 2012 5. Long-term current use of anticoagulant (SNOMED CT 091843002) 6. Hypomagnesemia 7. Diabetic neuropathy 8. Vertigo - s/p [facility] PT 08/2022 9. Diabetes Mellitus Type 2 (SCT 44664280) 10. CAD - Coronary Artery Disease (SCT 36067691) - s/p KYMBERLY to LCX 2003, LAD 2011 - Follows at [facility]ology - ezetimibe 10 mg daily and niacin due to elevated CK w/ statins 11. Allergic Rhinitis (SCT 29463066) 12. 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 2026 13. Peripheral neuropathy due to type 2 diabetes mellitus 14. Restless Legs Syndrome (SCT 40360392) 15. Dyspnea - has been referred to pulmonary at [facility], PFT 12/2021 showed reduced diffusing capacity and normal spirometry 16. Ventricular premature complex - Symptomatic, follows w/ [facility] cardiology, on BB 17. Venous insufficiency of leg - Uses compression stockings 18. Adenomatous polyp of colon - 4 mm TA in transverse colon [facility] 02/17/2020; repeat due 02/2025 19. Lumbar spinal stenosis - s/p whizotomy L3-S1 c/b bilateral foot drop - Uses AFOs, [facility] - Follows at [facility] where he has had L4-S1 branch blocks 03/2018, RFA L4-S1 05/2018, as well as trigger point injections 04/2021 20. Cervical spinal stenosis - Has had neurosurgery eval suggesting surgy but this was not pursued by the patient 21. Irritable bowel syndrome - Multiple EGDs for Barrets w/o cause for chronic abdominal pain (Celiacs) - H. pylori negative via stool Ag testing [facility] 01/2023 - CT a/p 2022 without explanation - Abdominal pain imrpoves w/ defecation, suspect IBS - Trial Psyllium and referral to nutrition for FODMAP 01/2023 - SIBO Dx [facility] 2022, Rx'ed rifaximen 22. Prostate Cancer (SCT 290428906) - Dx 2023, [place] 4+3 - underwent TURP 04/20/2023 for obstructive voiding symptoms [facility] 23. Small bowel bacterial overgrowth syndrome - Dx [facility] 2022, on rifaximen 24. Exposure to potentially hazardous substance (SCT [id number]) - Entered through [facility] Documentation Initiative MEDICATION RECONCILATION Education Evaluations *Was medication education [...] - Allergies/ADRs FACILITY ALLERGY/ADR -------- [facility] NO KNOWN ALLERGIES [facility] GABAPENTIN [facility] LISINOPRIL [facility] NO KNOWN ALLERGIES [facility] NO KNOWN ALLERGIES Active and Recently Outpatient Medications (including Supplies): Issue Date Status Last Fill Active Outpatient Medications Refills Expiration 1) ACCU-CHEK GUIDE (GLUCOSE) TEST STRIP ACTIVE (S) Issu:01-17-23 Qty: 300 for 90 days Sig: USE 1 STRIP Refills: 0 Last:10-04-23 THREE TIMES A DAY TO CHECK BLOOD SUGAR Expr:01-18-24 -USE WITHIN 3 MINUTES OF REMOVING FROM CONTAINER 2) ACETAMINOPHEN 500MG TAB Qty: 200 for 30 ACTIVE (S) Issu:01-17-23 days Sig: TAKE TWO TABLETS BY MOUTH Refills: 4 Last:08-30-23 EVERY 8 HOURS NEEDED FOR PAIN -NOT Expr:01-18-24 TO EXCEED 4000MG IN 24 HOURS FROM ALL SOURCES 3) ALBUTEROL 90MCG (CFC-F) 200D ORAL INHL ACTIVE Issu:06-22-23 Qty: 2 for 50 days Sig: INHALE 2 Refills: 3 Last:07-30-23 PUFFS BY INHALATION FOUR TIMES A DAY Expr:06-22-24 FOR SHORTNESS OF BREATH *SHAKE WELL* (FOR IMMEDIATE RELIEF) 4) ARTIFICIAL TEARS PVA 1.4%/POVIDONE (PF) ACTIVE (S) Issu:07-11-23 Qty: 30 for 30 days Sig: INSTILL 1 Refills: 1 Last:08-31-23 DROP IN BOTH EYES TWICE A DAY FOR DRY Expr:07-11-24 EYES 5) CITALOPRAM HYDROBROMIDE 20MG TAB Qty: ACTIVE (S) Issu:07-18-23 90 for 90 days Sig: TAKE ONE TABLET Refills: 2 Last:10-07-23 BY MOUTH EVERY DAY FOR DEPRESSION Expr:07-18-24 (NOTE NEW REGIMEN) 6) DICLOFENAC NA 1% TOP GEL Qty: 200 for ACTIVE (S) Issu:01-17-23 30 days Sig: APPLY 2 GRAMS TO LEFT Refills: 4 Last:08-30-23 HAND THREE TIMES A DAY NEEDED FOR Expr:01-18-24 ARTHRITIS PAIN -USE DOSE CARD IN BOX TO MEASURE DOSE -MAX 32 GM PER DAY 7) EMPAGLIFLOZIN 25MG TAB Qty: 90 for 90 ACTIVE (S) Issu:01-17-23 days Sig: TAKE ONE TABLET BY MOUTH Refills: 0 Last:10-04-23 EVERY DAY FOR DIABETES Expr:01-18-24 8) EZETIMIBE 10MG TAB Qty: 90 for 90 days ACTIVE (S) Issu:01-17-23 Sig: TAKE ONE TABLET BY MOUTH AT Refills: 0 Last:10-04-23 BEDTIME Expr:01-18-24 9) FAMOTIDINE 20MG TAB Qty: 180 for 90 ACTIVE (S) Issu:01-17-23 days Sig: TAKE ONE TABLET BY MOUTH Refills: 0 Last:10-04-23 TWICE A DAY TO DECREASE STOMACH ACID Expr:01-18-24 10) FEXOFENADINE HCL 180MG TAB Qty: 90 for ACTIVE (S) Issu:01-17-23 90 days Sig: TAKE ONE TABLET BY MOUTH Refills: 0 Last:10-04-23 EVERY DAY FOR ALLERGIC RHINITIS Expr:01-18-24 11) INSULIN,GLARGINE-YFGN 100UNIT/ML PEN 3ML HOLD Issu:07-18-23 Qty: 5 for 75 days Sig: INJECT 20 Refills: 5 UNITS UNDER THE SKIN EVERY DAY FOR Expr:07-18-24 DIABETES -REFRIGERATE -DISCARD PEN 28 DAYS AFTER FIRST USE 12) KETOCONAZOLE 2% SHAMPOO Qty: 120 for 30 ACTIVE Issu:01-17-23 days Sig: SHAMPOO SCALP DIRECTED Refills: 0 Last:08-10-23 THREE TIMES A WEEK Expr:01-18-24 13) LIDOCAINE 5% OINT Qty: 35 for 30 days ACTIVE Issu:06-22-23 Sig: APPLY MODERATE AMOUNT TOPICALLY Refills: 2 Last:07-31-23 THREE TIMES A DAY FOR PAIN Expr:06-22-24 14) METFORMIN HCL 1000MG TAB Qty: 180 for ACTIVE (S) Issu:01-17-23 90 days Sig: TAKE ONE TABLET BY MOUTH Refills: 0 Last:10-04-23 TWICE A DAY TO DECREASE BLOOD SUGAR Expr:01-18-24 -TAKE WITH FOOD 15) MOMETASONE FUROATE 50MCG 120D NASAL SUSP ACTIVE Issu:01-17-23 Qty: 3 for 90 days Sig: SPRAY 2 Refills: 0 Last:07-06-23 SPRAYS IN EACH NOSTRIL EVERY DAY FOR Expr:01-18-24 RHINITIS (RUNNY NOSE) 16) MULTIVITAMIN CAP/TAB Qty: 100 for 90 ACTIVE (S) Issu:01-17-23 days Sig: TAKE 1 TABLET BY MOUTH Refills: 0 Last:10-04-23 EVERY DAY Expr:01-18-24 17) NEEDLE,PEN 29G,12MM Qty: 200 for 90 ACTIVE (S) Issu:01-17-23 days Sig: USE 1 NEEDLE DIRECTED Refills: 0 Last:10-04-23 *DISPOSE OF IN A HARD-PLASTIC Expr:01-18-24 CONTAINER WITH A SCREW-ON LID CONTACT GARBAGE HAULER FOR PROPER DISPOSAL 18) NITROGLYCERIN 0.4MG SL TAB Qty: 100 for ACTIVE Issu:01-17-23 30 days Sig: DISSOLVE ONE TABLET Refills: 6 Last:08-13-23 UNDER THE TONGUE NEEDED FOR CHEST Expr:01-18-24 [...] EATING 20) PRAMIPEXOLE DIHYDROCHLORIDE 0.25MG TAB ACTIVE Issu:01-17-23 Qty: 30 for 30 days Sig: TAKE ONE Refills: 4 Last:08-13-23 TABLET BY MOUTH AT BEDTIME FOR Expr:01-18-24 RESTLESS LEGS SYNDROME 2 21) PSYLLIUM ORAL PWD Qty: 390 for 90 days ACTIVE (S) Issu:01-17-23 Sig: TAKE 1 TABLESPOONFUL BY MOUTH Refills: 0 Last:10-04-23 TWICE A DAY FOR REGULAR BOWEL Expr:01-18-24 MOVEMENTS MIX WITH 8 OUNCES WATER OR JUICE 22) RIVAROXABAN 10MG TAB Qty: 90 for 90 ACTIVE (S) Issu:04-16-23 days Sig: TAKE ONE TABLET BY MOUTH Refills: 2 Last:08-30-23 EVERY EVENING TO PREVENT BLOOD CLOTS Expr:04-16-24 23) SEMAGLUTIDE 2MG/0.75ML INJ PEN 3ML Qty: ACTIVE (S) Issu:07-18-23 1 for 28 days Sig: INJECT 2MG UNDER Refills: 3 Last:09-03-23 THE SKIN ONCE WEEKLY, ON THE SAME DAY Expr:07-18-24 EACH WEEK FOR DIABETES AND WEIGHT LOSS -MULTIPLE DOSES PER PEN 24) SIMETHICONE 80MG CHEW TAB Qty: 400 for ACTIVE (S) Issu:01-17-23 90 days Sig: CHEW ONE TABLET BY MOUTH Refills: 0 Last:10-04-23 FOUR TIMES A DAY FOR GAS Expr:01-18-24 25) SODIUM CHLORIDE 1GM TAB Qty: 200 for 90 ACTIVE (S) Issu:01-17-23 days Sig: TAKE ONE TABLET BY MOUTH Refills: 0 Last:10-04-23 TWICE A DAY Expr:01-18-24 26) SUCRALFATE 500MG/5ML SUSP Qty: 1260 for ACTIVE Issu:06-22-23 30 days Sig: TAKE 10 ML (2 Refills: 1 Last:06-24-23 TEASPOONSFUL) BY MOUTH FOUR TIMES A Expr:06-22-24 DAY NEEDED FOR GERD (ACID REFLUX) -TAKE ON AN EMPTY STOMACH -SHAKE WELL BEFORE USE 27) TRIAMCINOLONE ACETONIDE 0.1% CREAM Qty: ACTIVE Issu:06-22-23 80 for 30 days Sig: APPLY THIN LAYER Refills: 11 Last:08-01-23 TOPICALLY TWICE A DAY AVOID Expr:06-22-24 FACE,GROIN & ARMPITS *FOR EXTERNAL USE ONLY FOR ECZEMA Issue Date Status Last Fill Pending Outpatient Medications Refills Expiration 1) DOCUSATE NA 100MG CAP Qty: 100 Sig: PENDING TAKE ONE CAPSULE BY MOUTH EVERY DAY Refills: 0 2) INCONT LINER DEPEND GUARDS Qty: 104 PENDING Sig: USE 1 PAD DIRECTED Refills: 0 3) INSULIN GLARGINE-YFGN 100UNIT/ML PEN INJ PENDING Qty: 3 Sig: INJECT 23 UNITS UNDER THE Refills: 0 SKIN EVERY DAY FOR DIABETES -REFRIGERATE -DISCARD PEN 28 DAYS AFTER FIRST USE 4) METOPROLOL SUCCINATE 25MG SA TAB Qty: PENDING 180 Sig: TAKE ONE TABLET BY MOUTH Refills: 0 TWICE A DAY (WHOLE TABLET REQUESTED) Issue Date Status Last Fill Inactive Outpatient [...] ALBUTEROL 90MCG (CFC-F) 200D ORAL INHL DISCONTINUED Issu:01-17-23 Qty: 2 for 50 days Sig: INHALE 2 Refills: 0 Last:06-11-23 PUFFS BY INHALATION FOUR TIMES A DAY Expr:01-18-24 FOR SHORTNESS OF BREATH *SHAKE WELL* (FOR IMMEDIATE RELIEF) 4) ARTIFICIAL TEARS PVA 1.4%/POVIDONE (PF) DISCONTINUED Issu:01-17-23 Qty: 30 for 30 days Sig: INSTILL 1 Refills: 0 Last:06-11-23 DROP IN BOTH EYES TWICE A DAY FOR DRY Expr:01-18-24 EYES 5) CEFUROXIME AXETIL 500MG TAB Qty: 14 for Issu:05-08-23 7 days Sig: TAKE ONE TABLET BY MOUTH Refills: 0 Last:05-08-23 TWICE A DAY , TAKE WITH FOOD Expr:06-07-23 6) CITALOPRAM HYDROBROMIDE 20MG TAB Qty: DISCONTINUED Issu:07-18-23 87 for 90 days Sig: TAKE ONE-HALF Refills: 3 Last:07-19-23 TABLET BY MOUTH EVERY DAY FOR 7 DAYS, Expr:07-18-24 THEN TAKE ONE TABLET EVERY DAY FOR DEPRESSION 7) DICLOFENAC NA 1% TOP GEL Qty: 200 for DISCONTINUED Issu:04-28-22 30 days Sig: APPLY 2 GRAMS TO LEFT Refills: 3 Last:01-04-23 HAND THREE TIMES A DAY NEEDED FOR Expr:04-29-23 ARTHRITIS PAIN -USE DOSE CARD IN BOX TO MEASURE DOSE -MAX 32 GM PER DAY 8) EMPAGLIFLOZIN 25MG TAB Qty: 90 for 90 DISCONTINUED Issu:10-18-22 days Sig: TAKE ONE TABLET BY MOUTH Refills: 2 Last:01-11-23 EVERY DAY FOR DIABETES Expr:10-19-23 9) EZETIMIBE 10MG TAB Qty: 90 for [...] PEN 28 DAYS AFTER FIRST USE 13) INSULIN,GLARGINE-YFGN 100UNIT/ML PEN 3ML DISCONTINUED Issu:05-07-23 Qty: 5 for 50 days Sig: INJECT 30 (EDIT) Last:06-17-23 UNITS UNDER THE SKIN EVERY DAY FOR Refills: 4 Expr:05-07-24 DIABETES -REFRIGERATE -DISCARD PEN 28 DAYS AFTER FIRST USE 14) INSULIN,GLARGINE-YFGN 100UNIT/ML PEN 3ML DISCONTINUED Issu:01-17-23 Qty: 5 for 60 days Sig: INJECT 24 Refills: 4 Last:01-17-23 UNITS UNDER THE SKIN EVERY DAY FOR Expr:01-18-24 DIABETES -REFRIGERATE -DISCARD PEN 28 DAYS AFTER FIRST USE 15) KETOCONAZOLE 2% SHAMPOO Qty: 120 for 30 DISCONTINUED Issu:07-13-22 days Sig: SHAMPOO SCALP DIRECTED Refills: 0 Last:12-01-22 THREE TIMES A WEEK Expr:07-14-23 16) LIDOCAINE 5% OINT Qty: 35 for 30 days DISCONTINUED Issu:01-17-23 Sig: APPLY MODERATE AMOUNT TOPICALLY Refills: 0 Last:06-11-23 THREE TIMES A DAY FOR PAIN Expr:01-18-24 17) METFORMIN HCL 1000MG TAB Qty: 180 for DISCONTINUED Issu:10-18-22 90 days Sig: TAKE ONE TABLET BY MOUTH Refills: 2 Last:01-28-23 TWICE A DAY TO DECREASE BLOOD SUGAR Expr:10-19-23 -TAKE WITH FOOD 18) METOPROLOL SUCCINATE 50MG SA TAB Qty: DISCONTINUED Issu:01-17-23 180 for 90 days Sig: TAKE ONE TABLET (EDIT) Last:07-06-23 BY MOUTH TWICE A DAY FOR HEART RHYTHM Refills: 1 Expr:01-18-24 (WHOLE TABLET REQUESTED) 19) METOPROLOL SUCCINATE 50MG SA TAB Qty: DISCONTINUED Issu:10-18-22 90 for 90 days Sig: TAKE ONE TABLET (EDIT) Last:01-10-23 BY MOUTH EVERY DAY (WHOLE TABLET Refills: 3 Expr:10-19-23 REQUESTED) 20) MOMETASONE FUROATE 50MCG 120D NASAL SUSP DISCONTINUED Issu:07-13-22 Qty: 3 for 90 days Sig: SPRAY 2 Refills: 1 Last:11-16-22 SPRAYS IN EACH NOSTRIL EVERY DAY FOR Expr:07-14-23 RHINITIS (RUNNY NOSE) 21) MULTIVITAMIN CAP/TAB Qty: 100 for 90 DISCONTINUED Issu:10-18-22 days Sig: TAKE 1 TABLET BY MOUTH Refills: 2 Last:01-28-23 EVERY DAY Expr:10-19-23 22) NEEDLE,PEN 29G,12MM Qty: 200 for 90 DISCONTINUED Issu:10-18-22 days Sig: USE 1 NEEDLE DIRECTED Refills: 2 Last:01-11-23 *DISPOSE OF IN A HARD-PLASTIC Expr:10-19-23 CONTAINER WITH A SCREW-ON LID CONTACT GARBAGE HAULER FOR PROPER DISPOSAL 23) NITROGLYCERIN 0.4MG SL TAB Qty: 100 for DISCONTINUED Issu:08-21-22 30 days Sig: DISSOLVE ONE TABLET Refills: 7 Last:01-20-23 UNDER THE TONGUE NEEDED FOR CHEST Expr:08-22-23 PAIN -MAY REPEAT EVERY 5 MINUTES -NO MORE THAN 3 TOTAL. IF NO RELIEF AFTER 3 DOSES SEEK MEDICAL ATTENTION 24) PANTOPRAZOLE NA 40MG EC TAB Qty: 180 DISCONTINUED Issu:08-04-22 for 90 days Sig: TAKE ONE TABLET BY Refills: 0 Last:01-17-23 MOUTH TWICE A DAY TO DECREASE STOMACH Expr:08-05-23 ACID -TAKE ON AN EMPTY STOMACH, AT LEAST ONE-HALF HOUR BEFORE EATING 25) PRAMIPEXOLE DIHYDROCHLORIDE 0.25MG TAB DISCONTINUED Issu:07-13-22 Qty: 30 for 30 days Sig: TAKE ONE Refills: 5 Last:01-27-23 TABLET BY MOUTH AT BEDTIME FOR Expr:07-14-23 RESTLESS LEGS SYNDROME FOR RESTLESS LEGS 26) PRAMIPEXOLE DIHYDROCHLORIDE 0.25MG TAB DISCONTINUED Issu:04-28-22 Qty: 60 for 30 days Sig: TAKE ONE (EDIT) Last:07-15-22 TABLET BY MOUTH TWICE A DAY FOR Refills: 9 Expr:04-29-23 RESTLESS LEGS 27) PREGABALIN 150MG ORAL CAP Qty: 30 for Issu:01-17-23 30 days Sig: TAKE ONE CAPSULE BY Refills: 0 Last:07-01-23 MOUTH AT BEDTIME FOR PAIN IN Expr:07-20-23 ADDITIONAL TO YOUR PREGABALIN 75MG TWICE DAILY DOSE DIRECTED. 28) PREGABALIN 75MG ORAL CAP Qty: 60 for 30 Issu:01-17-23 days Sig: TAKE ONE CAPSULE BY MOUTH Refills: 0 Last:07-01-23 TWICE A DAY FOR PAIN FOR PERIPHERAL Expr:07-20-23 NEUROPATHY. 29) RIVAROXABAN 10MG TAB Qty: 90 for 90 DISCONTINUED Issu:04-28-22 days Sig: TAKE ONE TABLET BY MOUTH Refills: 0 Last:01-17-23 EVERY EVENING TO PREVENT BLOOD CLOTS Expr:04-29-23 30) SEMAGLUTIDE 1MG/0.75ML INJ PEN 3ML Qty: DISCONTINUED Issu:01-17-23 1 for 28 days Sig: INJECT 1MG UNDER (EDIT) Last:06-30-23 THE SKIN EVERY WEEK FOR DIABETES AND Refills: 0 Expr:01-18-24 WEIGHT LOSS -MULTIPLE DOSES PER PEN 31) SEMAGLUTIDE 1MG/0.75ML INJ PEN 3ML Qty: DISCONTINUED Issu:07-24-22 1 for 28 days Sig: INJECT 1MG UNDER Refills: 0 Last:12-02-22 THE SKIN EVERY WEEK FOR DIABETES AND Expr:07-25-23 WEIGHT LOSS -MULTIPLE DOSES PER PEN 32) SIMETHICONE 80MG CHEW TAB Qty: 400 for DISCONTINUED Issu:10-18-22 90 days Sig: CHEW ONE TABLET BY MOUTH Refills: 3 Last:12-08-22 FOUR TIMES A DAY FOR GAS Expr:10-19-23 33) SODIUM CHLORIDE 1GM TAB Qty: 200 for 90 DISCONTINUED Issu:10-18-22 days Sig: TAKE ONE TABLET BY MOUTH Refills: 2 Last:01-11-23 TWICE A DAY Expr:10-19-23 34) SUCRALFATE 500MG/5ML SUSP Qty: 1260 for DISCONTINUED Issu:01-17-23 30 days Sig: TAKE 10 ML (2 Refills: 0 Last:01-17-23 TEASPOONSFUL) BY MOUTH FOUR TIMES A Expr:01-18-24 DAY NEEDED FOR GERD (ACID REFLUX) -TAKE ON AN EMPTY STOMACH -SHAKE WELL BEFORE USE 35) TAMSULOSIN HCL 0.4MG CAP Qty: 90 for 90 DISCONTINUED Issu:06-22-23 days Sig: TAKE ONE CAPSULE BY MOUTH Refills: 3 Last:10-05-23 EVERY DAY FOR BENIGN PROSTATIC Expr:06-22-24 HYPERTROPHY (BPH) 36) TRIAMCINOLONE ACETONIDE 0.1% CREAM Qty: DISCONTINUED Issu:01-17-23 80 for 30 days Sig: APPLY THIN LAYER Refills: 8 Last:07-02-23 TOPICALLY TWICE A DAY AVOID Expr:01-18-24 FACE,GROIN & ARMPITS *FOR EXTERNAL USE ONLY FOR ECZEMA 67 Total Medications PHYSICAL EXAM VS: Temp: 98.2 F [36.8 C] (01/17/2023 10:52) BP: 110/69 (01/17/2023 10:52) Pulse:73 (01/17/2023 10:52) Resp: 16 (01/17/2023 10:52) Pain: 3 (01/17/2023 10:52) Weight: WEIGHTS IN LAST 6 MONTHS - NONE FOUND General: Sitting in living room, no distress LABS and STUDIES LAB RESULTS LAST 48 HRS - NONE FOUND /valarie/ EDDIE DUMONT MD PHYSICIAN, [facility] Signed: 08/20/2023 10:23 EDDIE DUMONT [facility] Aug 20, 2023 09:20 AM INTERNAL MEDICINE OUTPATIENT NOTE: LOCAL TITLE: MEDICINE CLINIC NURSING NOTE STANDARD TITLE: INTERNAL MEDICINE OUTPATIENT NOTE DATE OF NOTE: AUG 20, 2023@09:20 ENTRY DATE: AUG 20, 2023@09:20:55 AUTHOR: ELADIO LEWIS EXP COSIGNER: URGENCY: STATUS: COMPLETED TYPE OF VISIT: Telemedicine Check In Type of appointment: VVC Appointment Patient's identity verified using two identifiers. Patient Contact Details: Best contact number for backup/emergency communication with patient: Patient Location/Surroundings During Visit: Patient location during visit: Home [address] [place] [id number] Patient confirms location is safe and private for visit. Visit conducted by synchronous telehealth. Patient verbal consent for [place] Video Connect visit obtained. Location/emergency number confirmed. *Environment surveyed and all participants identified. Virtual conference room locked. REASON FOR VISIT: follow-up DM11 ALLERGIES: GABAPENTIN (Nov 24, 2008) LISINOPRIL (Sep 04, 2017) VITAL SIGNS: Blood Pressure: 110/69 (01/17/2023 10:52) Pulse: 73 (01/17/2023 10:52) Respiration: 16 (01/17/2023 10:52) Temperature: 98.2 F [36.8 C] (01/17/2023 10:52) Weight: 208.7 lb [94.66 kg] (01/17/2023 10:52) Height: 71.5 in [181.6 cm] (01/17/2023 10:52) BMI: 28.8 O2 Sat: 95% (01/17/2023 10:52) Pain: 3 (01/17/2023 10:52) PAIN SCREEN: Patient to discuss with their provider today. COVID-19 Immunization: Virtual/Telehealth Visit - Patient educated on the need for receiving COVID-19 (SARS-CoV-2) immunization either at [facility] or outside facility. Comment: states up to date with this. Given at local non-va pharmacy. /valarie/ ELADIO LEWIS ADVANCED TELEHEALTH AQUATIC BIOLOGIST Signed: 08/20/2023 09:31 ELADIO LEWIS [facility]
--- OUTSIDE RECORDS SUMMARY | 2023-10-08 12:27 | XMS_ITS | Encounter Summary ---
Author Name [facility] [place] [facility] [place] Address [address] [place] [address] Care Team Providers Care Rheumatologist Name Role Phone JI DUMONT Primary Care [...] Ochoa's Name Patient's Relationship to Policy Ochoa [facility] (R) MEDICARE [facility] ([employer] [facility]) Mar 12, 2015 [id number] [phone] BARRY GONZALEZ [facility] ([employer] [facility]) MEDICARE ADVANTAGE SENIO R GOLD INDIV IDU Mar 12, 2015 [id number] [phone] BARRY GONZALEZ PATIENT [facility] (WN) MEDICARE [facility] ([employer] [facility] [employer]) Mar 12, 2015 [id number] [phone] JUSTYNAPAMELABARRY PATEL PATIENT [place] [place] RETIREE PLATI NUM BLUE COMPL E Mar 12, 2016 [id number] LISA BARRY JENNIFFER [facility] ([employer]) MEDICARE [facility] ([employer]) Mar 12, 2015 [id number] BARRY GONZALEZ PATIENT MEDICARE (WNR) MEDICARE (M) PART A Mar 12, 2000 PART A [id number] [phone] BARRY GONZALEZ PATIENT Selected Encounter This section includes the information on record at [place] for the Encounter. Date/Time Encounter Type Encounter Description Reason Pro vider Source Aug 27, 2023 11:32 AM Outpatient Encounter OPHTHALMOLOGY IHE Encounter Template Text not used by [place] Plan of Treatment: Future Appointments (+ 6 months) and Future Tests (+/- 45 days) The Plan of Treatment section includes future care activities for the patient from all [place] treatmentfacilities. This section includes future appointments and future orders which are active, pending or scheduled. Future Appointments This section includes appointments that were scheduled to occur 6 months from the date of the Encounter, up to a maximum of 20 appointments. The data comes from all [place] treatment facilities. Appointment Date/Time Appointment Type Appointme nt Facility Name Aug 28, 2023 02:10 PM AMBULATORY - NONE [facility] Active, Pending, and Scheduled Orders This section includes a listing of several types of active, pending, and scheduled orders, including clinic medications orders, diagnostic test orders, procedure orders and consult orders; where the start date of the order is 45 days before the date of the Encounter or 45 days after the date of theEncounter. The data comes from all [facility]. Test Date/Time Test Type Test Details Facility Name Aug 27, 2023 10:00 AM Laboratory - Chemi stry Order ALBUMIN/CREATININE RATIO URINE URINE WC ONCE [facility] Aug 27, 2023 10:00 AM Laboratory - Chemi stry Order HEMOGLOBIN A1C BLOOD [facility] Lab Results: +/- 30 days of the encounter This section includes the Chemistry and Hematology Lab Results on record with [place] for the patient. Radiology Reports and Pathology Reports are provided separately, in subsequent sections. Lab Results This section contains the Chemistry/Hematology Results that were resulted 30 days before or 30 daysafter the date of the Encounter. Date/Time Source Result Type Result - Unit Interpretation Reference Range Comment Aug 27, 2023 09:49 AM [facility] AST/SGOT Specimen Type: PLASMA No comment entered. Ordering Provider: MIKAL DANIELSON Report Released Date/Time: Aug 13, 2023 09:15 AM Reporting Lab: [facility] [id number] Performing Lab: [facility] [id number] AST/SGOT 21 U/L <34 Aug 27, 2023 09:49 AM [facility] CREATININE(INCLUDES EGFR) Specimen Type: PLASMA No comment entered. Ordering Provider: MIKAL DANIELSON Report Released Date/Time: Aug 13, 2023 09:15 AM Reporting Lab: [facility] [id number] Performing Lab: [facility] [id number] CREATININE 1.3 mg/dL H 0.7-1.2 .CREAT EGFR(CKD-EPI ) 56 L >60 Aug 27, 2023 09:49 AM [facility] ALT/SGPT Specimen Type: PLASMA No comment entered. Ordering Provider: MIKAL DANIELSON Report Released Date/Time: Aug 13, 2023 09:15 AM Reporting Lab: [facility] [id number] Performing Lab: [facility] [phone] ALT/SGPT 21 U/L <55 Aug 27, 2023 09:49 AM [facility] CBC Specimen Type: BLOOD No comment entered. Ordering Provider: MIKAL DANIELSON Report Released Date/Time: Aug 13, 2023 09:15 AM Reporting Lab: [facility] [id number] Performing Lab: [facility] [id number] WBC 7.02 10*3/uL 4.0-11.0 RBC 4.25 10*6/uL [...] and tobacco- related health factors from the [place] facility where the Encounter took place. Current Smoking Status This section includes the most current smoking, or tobacco-related health factor, from the [place] facility where the Encounter took place. Date/Time Current Smoking Status Comment Nadine ity Jan 17, 2023 10:45 AM VA-TOBACCO FORMER USER [facility] Tobacco Use History This section includes a history of the smoking, or tobacco-related health factors, that were collected on or before the date of the Encounter. The data comes from the [place] facility where the Encounter took place. Date/Time Smoking Status/Tobacco Use Comment F acility Jan 17, 2023 10:45 AM VA-TOBACCO QUIT 15 YRS OR MORE [facility] Feb 01, 2022 10:15 AM VA-TOBACCO FORMER USER [facility] Feb 01, 2022 10:15 AM VA-TOBACCO QUIT 15 YRS OR MORE [facility] Sep 28, 2020 03:20 PM VA-TOBACCO FORMER USER [facility] Sep 28, 2020 03:20 PM VA-TOBACCO QUIT 15 YRS OR MORE [facility] Dec 25, 2019 10:30 AM VA-TOBACCO FORMER USER [facility] Dec 25, 2019 10:30 AM VA-TOBACCO QUIT 15 YRS OR MORE [facility] Feb 21, 2018 11:12 AM VA-TOBACCO FORMER USER [facility] Feb 21, 2018 11:12 AM VA-TOBACCO QUIT 15 YRS OR MORE [facility] August 08, 2017 11:28 AM FORMER TOBACCO USER 7Y OR GREATE R [facility] Aug 22, 2016 07:47 AM FORMER TOBACCO USER 7Y OR GREATE R [facility] Aug 23, 2015 09:50 AM FORMER TOBACCO USER 7Y OR GREATE R [facility] Aug 13, 2014 08:34 AM LIFETIME NON-TOBACCO USER [facility] Aug 11, 2013 07:48 AM LIFETIME NON-TOBACCO USER [facility] Advance Directives: All historical and current Section Date Range: From patient's date of to the date document was created. This section includes ALL of a patient's completed or amended [place] Advance and Rescinded Directives. The entries below indicate that a directive exists for the patient, but an actual copy is not included with this document. The data comes from all [facility]. Date Advance Directives Provider Source Aug 13, 2014 ADVANCE DIRECTIVE VANDANA MAURICE [facility] Aug 13, 2014 ADVANCE DIRECTIVE DISCUSSION VANDANA MAURICE [facility] May 06, 2007 ADVANCE DIRECTIVE MAYITO PIERRE [facility] Encounter Notes: All associated encounter notes This section contains the clinical notes associated to the Encounter. Date/Time Encounter Note(s) Provider Source Aug 27, 2023 11:32 AM REPORT OF CONTACT: LOCAL TITLE: APPOINTMENT SCHEDULING NOTE STANDARD TITLE: REPORT OF CONTACT DATE OF NOTE: AUG 27, 2023@11:32 ENTRY DATE: AUG 27, 2023@11:32:09 AUTHOR: ANABEL HURTADO EXP COSIGNER: URGENCY: STATUS: COMPLETED Per triage, patient should be seen in [facility] within 24-48 hours. Medical Authorization Specialist contacted patient to schedule, patients phone went to [employer]Calcul[employer]il. Medical Authorization Specialist left voice message and callback number [phone]. If patient calls back to schedule, please schedule in [facility] per . /valarie/ ANABEL HURTADO ADVANCED PERIOPERATIVE EDUCATOR Signed: 08/27/2023 11:33 ANABEL HURTADO [facility]
--- OUTSIDE RECORDS SUMMARY | 2023-10-08 12:27 | XMS_ITS | Encounter Summary ---
Author Name [facility] [place] Address [address] [place] [address] Care Team Providers Care Clinical Specialty Rep Name Role Phone JI DUMONT Primary Care [...] Policy Ochoa [facility] (R) MEDICARE [facility] ([facility]) Mar 12, 2015 [id number] ADILSON GONZALEZ [facility] ([facility]) MEDICARE ADVANTAGE [place]ENIO R GOLD INDIV IDU Mar 12, 2015 [id number] [phone] ADILSON GONZALEZ PATIENT [facility] (WN) MEDICARE ADVANTAGE [facility] ([facility]) Mar 12, 2015 [id number] [phone] ADILSON GONZALEZ PATIENT [facility] RETIREE PLATI NUM BLUE COMPL E Mar 12, 2016 [id number] [phone] JUSTYNAPAMELAADILSON PATEL [facility] ([facility]) MEDICARE ADVANTAGE [facility] (WNR) Mar 12, 2015 [id number] ADILSON GONZALEZ PATIENT MEDICARE (WNR) MEDICARE (M) PART A Mar 12, 2000 PART A [id number] ADILSON GONZALEZ PATIENT Selected Encounter This section includes the information on record at [place] for the Encounter. Date/Time Encounter Type Encounter Description Reason Provider Source Aug 27, 2023 11:00 AM ORTHOTIC MGMT&TRAING 1ST ENC PROSTHETICS/ORTHO TICS ICD-10-CM E11.9 Type 2 diabetes mellitus without complications JUSTINE PARRA Lizzy Encounter Template Text not used by [place] Assessments - Encounter Diagnoses This section includes the primary and secondary diagnoses documented for the Encounter. Date/Time Primary/Secondary Diagnosis Diagnosis Name Provider Source Aug 27, 2023 01:25 PM PRIMARY Type 2 diabetes mellitus without complications GERRY MACIELJUSTINE Byers [facility] Plan of Treatment: Future Appointments (+ 6 months) and Future Tests (+/- 45 days) The Plan of Treatment section includes future care activities for the patient from all [place] treatmentfacilst. [facility]. This section includes future appointments and future orders which are active, pending or scheduled. Future Appointments This section includes appointments that were scheduled to occur 6 months from the date of the Encounter, up to a maximum of 20 appointments. The data comes from all [place] treatment [facility]. Appointment Date/Time Appointment Type Appointme nt Facility Name Aug 28, 2023 02:10 PM AMBULATORY - NONE [facility] Active, Pending, and Scheduled Orders This section includes a listing of several types of active, pending, and scheduled orders, including clinic medications orders, diagnostic test orders, procedure orders and consult orders; where the start date of the order is 45 days before the date of the Encounter or 45 days after the date of theEncounter. The data comes from all [place] treatment [facility]. Test Date/Time Test Type Test Details Facility Name Aug 27, 2023 10:00 AM Laboratory - Chemi stry Order HEMOGLOBIN A1C BLOOD [facility] Aug 27, 2023 10:00 AM Laboratory - Chemi stry Order ALBUMIN/CREATININE RATIO URINE URINE ONCE [facility] Lab Results: +/- 30 days of the encounter This section includes the Chemistry and Hematology Lab Results on record with [place] for the patient. Radiology Reports and Pathology Reports are provided separately, in subsequent sections. Lab Results This section contains the Chemistry/Hematology Results that were resulted 30 days before or 30 daysafter the date of the Encounter. Date/Time Source Result Type Result - Unit Interpretation Reference Range Comment Aug 27, 2023 09:49 AM [facility] AST/SGOT Specimen Type: PLASMA No comment entered. Ordering Provider: MIKAL DANIELSON Report Released Date/Time: Aug 13, 2023 09:15 AM Reporting Lab: [facility] [id number] Performing Lab: [facility] [id number] AST/SGOT 21 U/L <34 Aug 27, 2023 09:49 AM [facility] CREATININE(INCLUDES EGFR) Specimen Type: PLASMA No comment entered. Ordering Provider: MIKAL DANIELSON Report Released Date/Time: Aug 13, 2023 09:15 AM Reporting Lab: [facility] [id number] Performing Lab: [facility] [id number] CREATININE 1.3 mg/dL H 0.7-1.2 .CREAT EGFR(CKD-EPI ) 56 L >60 Aug 27, 2023 09:49 AM [facility] ALT/SGPT Specimen Type: PLASMA No comment entered. Ordering Provider: MIKAL DANIELSON Report Released Date/Time: Aug 13, 2023 09:15 AM Reporting Lab: [facility] [id number] Performing Lab: [facility] [id number] ALT/SGPT 21 U/L <55 Aug 27, 2023 09:49 AM [facility] CBC Specimen Type: BLOOD No comment entered. Ordering Provider: MIKAL DANIELSON Report Released Date/Time: Aug 13, 2023 09:15 AM Reporting Lab: [facility] [id number] Performing Lab: [facility] [id number] WBC 7.02 10*3/uL 4.0-11.0 RBC 4.25 10*6/uL [...] and tobacco- related health factors from the [place] facility where the Encounter took place. Current Smoking Status This section includes the most current smoking, or tobacco-related health factor, from the [place] facility where the Encounter took place. Date/Time Current Smoking Status Comment Facil ity Jan 17, 2023 10:45 AM VA-TOBACCO QUIT 15 YRS OR MORE [facility] Tobacco Use History This section includes a history of the smoking, or tobacco-related health factors, that were collected on or before the date of the Encounter. The data comes from the [place] facility where the Encounter took place. Date/Time Smoking Status/Tobacco Use Comment F acility Jan 17, 2023 10:45 AM VA-TOBACCO QUIT 15 YRS OR MORE [facility] Feb 01, 2022 10:15 AM VA-TOBACCO FORMER USER [facility] Feb 01, 2022 10:15 AM VA-TOBACCO QUIT 15 YRS OR MORE [facility] Sep 28, 2020 03:20 PM VA-TOBACCO FORMER USER [facility] Sep 28, 2020 03:20 PM VA-TOBACCO QUIT 15 YRS OR MORE [facility] Dec 25, 2019 10:30 AM VA-TOBACCO FORMER USER [facility] Dec 25, 2019 10:30 AM VA-TOBACCO QUIT 15 YRS OR MORE [facility] Feb 21, 2018 11:12 AM VA-TOBACCO FORMER USER [facility] Feb 21, 2018 11:12 AM VA-TOBACCO QUIT 15 YRS OR MORE [facility] August 08, 2017 11:28 AM FORMER TOBACCO USER 7Y OR GREATE R [facility] Aug 22, 2016 07:47 AM FORMER TOBACCO USER 7Y OR GREATE R [facility] Aug 23, 2015 09:50 AM FORMER TOBACCO USER 7Y OR GREATE R [facility] Aug 13, 2014 08:34 AM LIFETIME NON-TOBACCO USER [facility] Aug 11, 2013 07:48 AM LIFETIME NON-TOBACCO USER [facility] Advance Directives: All historical and current Section Date Range: From patient's date of to the date document was created. This section includes ALL of a patient's completed or amended [place] Advance and Rescinded Directives. The entries below indicate that a directive exists for the patient, but an actual copy is not included with this document. The data comes from all [place] facilities. Date Advance Directives Provider Source Aug 13, 2014 ADVANCE DIRECTIVE VANDANA MAURICE [facility] Aug 13, 2014 ADVANCE DIRECTIVE DISCUSSION VANDANA MAURICE [facility] May 06, 2007 ADVANCE DIRECTIVE MAYITO PIERRE [facility] Encounter Notes: All associated encounter notes This section contains the clinical notes associated to the Encounter. Date/Time Encounter Note(s) Provider Source Aug 27, 2023 11:00 AM ORTHOTICS PROSTHET ICS CONSULT: LOCAL TITLE: PROSTHETICS CONSULT STANDARD TITLE: ORTHOTICS PROSTHETICS CONSULT DATE OF NOTE: AUG 27, 2023@11:00 ENTRY DATE: AUG 27, 2023@13:10:55 AUTHOR: DREA KHAN EXP COSIGNER: URGENCY: STATUS: COMPLETED Reason for visit: AFO eval, EDS, FO adjustment Dx: E11.9 Rx: EDS, AFO S: Adilson Gonzalez is a 77-y.o. male seen in clinic for AFOs, EDS, and FO adjustment. did not wear a mask during the appointment. Pt presented to appt ambulating independently though he appeared unsteady on his feet. Pt reported his R-AFO was rubbing on his ankle and the L-AFO was fine. Pt reported the irma had modified his FOs and the current pair are worn. O: Pt wearing bilateral WalkOn Reaction AFOs; previously received WalkOn Flex AFOs which he reported were uncomfortable and he could not walk in them, so he went back to the WalkOn Reaction. R-AFO has puff padding on anterior shell. Small callus seen just posterior to apex of R medial malleolus; pt reported AFO is rubbing but not all the time. Distal part of anterior panel of R-AFO is peeled away and delaminated. When AFOs removed from shoes, R-AFO found to be cracked and delaminated at strut/footplate juntion; L-AFO flexible material is peeling but strut is not cracked yet. Pt requires new AFOs to ambulate safely. Ibis Jorge and Thuasne SpryStep Max AFOs trialled on R side. Pt preferred SpryStep Max; gait appeared improved and more stable w/ this AFO. Pt and reported he is more stable w/ this brace. Will order bilateral SpryStep Max AFOs from [facility] and have sent to pt; pt amenable to this plan. Pt wearing Medi OTS FOs w/ small lateral wedge installed bilaterally. Due to time required to trial AFOs, will modify new set of FOs and mail to pt w/ lateral wedges. Examination of pt's feet unremarkable. Pt only received 1 pair of EDS; will order Performance X (black/germain) and send to pt. Pelvic height checked following pt's ambulation in he hallway; RLE found to be 1/2 shorter than LLE. Two size large [id number] provided to pt, along w/ instructions for use. Pt voiced his understanding. A: 77-y.o. seen in clinic for AFOs, EDS, and FO adjustment. P: AFOs will be ordered from the [facility] and sent to pt; shoes will be ordered from Dr. Chavez and sent to pt; large [id number] x2 issued to pt today; Medi comfort FOs will be modified w/ lateral wedge and mailed to pt w/ EDS. Pt aware of AFO user information; safety information reviewed today and pt voiced his understanding. Patient aware to contact Prosthetics with any questions or concerns in the meantime. Time: 1.25 hours Supply to be ordered: Vendor: Dr. Chavez Item description: Performance X, black/germain, size 11.5XW Part #: [id number]-[id number] Quantity: 1 pair [facility] Code: A5500 Deliver to: [facility]/Prosthetics Department (121) Issued from stock: [employer] - [id number] - LARGE (AA) [id number] 6.8 [place] [employer] [facility] Qty: 2 /es/ JUSTINE KHAN Resident Medical Doctor Signed: 08/27/2023 13:25 PARVEEN KHAN [facility]
--- OUTSIDE RECORDS SUMMARY | 2023-10-08 12:28 | XMS_ITS | Encounter Summary ---
Author Name [place] Address [address] [place] [address] Care Team Providers Care Residential Worker Name Role Phone JI DUMONT Primary Care [...] Relationship to Policy Ochoa [facility] (WNR) MEDICARE [facility] ([facility]) Mar 12, 2015 [id number] BARRY GONZALEZ [facility] (R) MEDICARE ADVANTAGE [facility] Mar 12, 2015 [id number] [phone] BARRY GONZALEZ [facility] (WNR) MEDICARE ADVANTAGE [facility] (WNR) Mar 12, 2015 [id number] [phone] LISABARRY PATIENT BLUE CROSS [facility] RETIREE PLATI NUM BLUE COMPL E Mar 12, 2016 [id number] LISA BARRY JENNIFFER BLUE [facility] (WNR) MEDICARE ADVANTAGE [facility] (WNR) Mar 12, 2015 [id number] BARRY GONZALEZ PATIENT MEDICARE (WNR) MEDICARE (M) PART A Mar 12, 2000 PART A [id number] BARRY GONZALEZ PATIENT Selected Encounter This section includes the information on record at [place] for the Encounter. Date/Time Encounter Type Encounter Description Reason Pro vider Source Sep 06, 2023 09:19 PM Outpatient Encounter EVENT (HISTORICAL) IHE Encounter Template Text not used by [place] Plan of Treatment: Future Appointments (+ 6 months) and Future Tests (+/- 45 days) The Plan of Treatment section includes future care activities for the patient from all [place] treatmentfacilities. This section includes future appointments and future orders which are active, pending or scheduled. Active, Pending, and Scheduled Orders This section includes a listing of several types of active, pending, and scheduled orders, including clinic medications orders, diagnostic test orders, procedure orders and consult orders; where the start date of the order is 45 days before the date of the Encounter or 45 days after the date of theEncounter. The data comes from all [place] treatment facilities. Test Date/Time Test Type Test Details Facility Name Aug 27, 2023 10:00 AM Laboratory - Chemi stry Order HEMOGLOBIN A1C BLOOD WC [facility] Aug 27, 2023 10:00 AM Laboratory - Chemi stry Order ALBUMIN/CREATININE RATIO URINE URINE WC ONCE [facility] Lab Results: +/- 30 [...] Range Comment Aug 27, 2023 09:[address] [facility] CREATININE(INCLUDES EGFR) Specimen Type: PLASMA No comment entered. Ordering Provider: MIKAL DANIELSON Report Released Date/Time: Aug 13, 2023 09:15 AM Reporting Lab: [facility] [id number] Performing Lab: [facility] [id number] CREATININE 1.3 mg/dL H 0.7-1.2 .CREAT EGFR(CKD-EPI ) 56 L >60 Aug 27, 2023 09:[address] [facility] AST/SGOT Specimen Type: PLASMA No comment entered. Ordering Provider: MIKAL DANIELSON Report Released Date/Time: Aug 13, 2023 09:15 AM Reporting Lab: [facility] [id number] Performing Lab: [facility] [id number] AST/SGOT 21 U/L <34 Aug 27, 2023 09:[address] [facility] ALT/SGPT Specimen Type: PLASMA No comment entered. Ordering Provider: MIKAL DANIELSON Report Released Date/Time: Aug 13, 2023 09:15 AM Reporting Lab: [facility] [id number] Performing Lab: [facility] [id number] ALT/SGPT 21 U/L <55 Aug 27, 2023 09:[address] [facility] CBC Specimen Type: BLOOD No comment entered. Ordering Provider: MIKAL DANIELSON Report Released Date/Time: Aug 13, 2023 09:15 AM Reporting Lab: [facility] [id number] Performing Lab: [facility] [id number] WBC 7.02 10*3/uL 4.0-11.0 RBC 4.25 10*6/uL [...] 2023 10:45 AM VA-TOBACCO FORMER USER [facility] Tobacco Use History This section includes a history of the smoking, or tobacco-related health factors, that were collected on or before the date of the Encounter. The data comes from the [place] facility where the Encounter took place. Date/Time Smoking Status/Tobacco Use Comment F acility Jan 17, 2023 10:45 AM VA-TOBACCO QUIT [address] [facility] Feb 01, 2022 10:15 AM VA-TOBACCO FORMER USER [facility] Feb 01, 2022 10:15 AM VA-TOBACCO QUIT [address] [facility] Sep 28, 2020 03:20 PM VA-TOBACCO FORMER USER [facility] Sep 28, 2020 03:20 PM VA-TOBACCO QUIT [address] [facility] Dec 25, 2019 10:30 AM VA-TOBACCO FORMER USER [facility] Dec 25, 2019 10:30 AM VA-TOBACCO QUIT [address] [facility] Feb 21, 2018 11:12 AM VA-TOBACCO FORMER USER [facility] Feb 21, 2018 11:12 AM VA-TOBACCO QUIT [address] [facility] August 08, 2017 11:28 AM FORMER TOBACCO USER 7Y OR GREATE R [facility] Aug 22, 2016 07:47 AM FORMER TOBACCO USER 7Y OR GREATE R [facility] Aug 23, 2015 09:50 AM FORMER TOBACCO USER 7Y OR GREATE R [facility] Aug 13, 2014 08:34 AM LIFETIME NON-TOBACCO USER [facility] Aug 11, 2013 07:48 AM LIFETIME NON-TOBACCO USER [facility] Advance Directives: All historical [...] comes from all [facility]. Date Advance Directives Provider Source Aug 13, 2014 ADVANCE DIRECTIVE VANDANA MAURICE [facility] Aug 13, 2014 ADVANCE DIRECTIVE DISCUSSION VANDANA MAURICE [facility] May 06, 2007 ADVANCE DIRECTIVE MAYITO PIERRE [facility]
--- OUTSIDE RECORDS SUMMARY | 2023-10-08 12:29 | XMS_ITS | Encounter Summary ---
Author Name [place] Address [address] [place] [address] Care Team Providers Care Sample Examiner Name Role Phone JI DUMONT Primary Care [...] Ochoa's Name Patient's Relationship to Policy Ochoa [facility] (R) MEDICARE [facility] ([facility]) Mar 12, 2015 [id number] BARRY GONZALEZ [facility] ([facility]) MEDICARE ADVANTAGE [facility] Mar 12, 2015 [id number] [phone] BARRY GONZALEZ [facility] (WNR) MEDICARE ADVANTAGE [facility] (WNR) Mar 12, 2015 [id number] [phone] JUSTYNAPAMELABARRY PATEL PATIENT [place]UE [place]OSS [place] RETIREE PLATI NUM BLUE COMPL E Mar 12, 2016 [id number] LISABARRY BLUE SHIELD [facility] (WN) MEDICARE ADVANTAGE [facility] ([facility]) Mar 12, 2015 [id number] BARRY GONZALEZ PATIENT MEDICARE ([place]NR) MEDICARE (M) PART A Mar 12, 2000 PART A [id number] BARRY GONZALEZ PATIENT Selected Encounter This section includes the information on record at [place] for the Encounter. Date/Time Encounter Type Encounter Description Reason Pro vider Source Sep 28, 2023 11:52 AM Outpatient Encounter COMMUNITY CARE CONSULT IHE Encounter Template Text not used by [place] Plan of Treatment: Future Appointments (+ 6 months) and Future Tests (+/- 45 days) The Plan of Treatment section includes future care activities for the patient from all [place] treatmentfacilities. This section includes future appointments and [...] of theEncounter. The data comes from all [place] treatment facilities. Test Date/Time Test Type Test Details Facility Name Aug 27, 2023 10:00 AM Laboratory - Chemi stry Order HEMOGLOBIN A1C BLOOD WC [facility] Aug 27, 2023 10:00 AM Laboratory - Chemi stry Order ALBUMIN/CREATININE RATIO URINE URINE WC ONCE [facility] Social History: Smoking Status (Most current) and Tobacco Use (All prior to encounter date) This section includes the most current, and the historical, smoking and tobacco- related health factors from the [place] facility where the Encounter took place. Current Smoking Status This section includes the most current smoking, or tobacco-related health factor, from the [place] facility where the Encounter took place. Date/Time Current Smoking Status Comment Facil ity Jan 17, 2023 10:45 AM [place]-TOBACCO QUIT 15 YRS OR MORE [facility] Tobacco Use History This section includes a history of the smoking, or tobacco-related health factors, that were collected on or before the date of the Encounter. The data comes from the [place] facility where the Encounter took place. Date/Time Smoking Status/Tobacco Use Comment F acility Jan 17, 2023 10:45 AM NM-TOBACCO QUIT 15 YRS OR MORE [facility] Feb 01, 2022 10:15 AM VA-TOBACCO FORMER USER [facility] Feb 01, 2022 10:15 AM VA-TOBACCO QUIT 15 YRS OR MORE [facility] Sep 28, 2020 03:20 PM VA-TOBACCO FORMER USER [facility] Sep 28, 2020 03:20 PM VA-TOBACCO QUIT 15 YRS OR MORE [facility] Dec 25, 2019 10:30 AM VA-TOBACCO FORMER USER [facility] Dec 25, 2019 10:30 AM VA-TOBACCO QUIT 15 YRS OR MORE [facility] Feb 21, 2018 11:12 AM VA-TOBACCO FORMER USER [facility] Feb 21, 2018 11:12 AM VA-TOBACCO QUIT 15 YRS OR MORE [facility] August 08, 2017 11:28 AM FORMER TOBACCO USER 7Y OR GREATE R [facility] Aug 22, 2016 07:47 AM FORMER TOBACCO USER 7Y OR GREATE R [facility] Aug 23, 2015 09:50 AM FORMER TOBACCO USER 7Y OR GREATE R [facility] Aug 13, 2014 08:34 AM LIFETIME NON-TOBACCO USER [facility] Aug 11, 2013 07:48 AM LIFETIME NON-TOBACCO USER [facility] Advance Directives: All historical and current Section Date Range: From patient's date of to the date document was created. This section includes ALL of a patient's completed or amended [place] Advance and Rescinded Directives. The entries below indicate that a directive exists for the patient, but an actual copy is not included with this document. The data comes from all [place] facilities. Date Advance Directives Provider Source Aug 13, 2014 ADVANCE DIRECTIVE DISCUSSION JOSAFATVANDANA [facility] Aug 13, 2014 ADVANCE DIRECTIVE [facility]DANA[facility]UN [facility] May 06, 2007 ADVANCE DIRECTIVE MAYITO PIERRE [facility] Encounter Notes: All associated encounter notes This section contains the clinical notes associated to the Encounter. Date/Time Encounter Note(s) Provider Source Sep 28, 2023 11:52 AM PHARMACY NOTE: LOCAL TITLE: PHARMACY NON VA CARE MEDICATIONS STANDARD TITLE: PHARMACY NOTE DATE OF NOTE: SEP 28, 2023@11:52 ENTRY DATE: SEP 28, 2023@11:52:24 AUTHOR: DAVION CAVANAUGH COSIGNER: URGENCY: STATUS: COMPLETED [facility] RECEIVED electronic prescription(s) (eRX(s)) from NON-VA Provider: IRISH ESQUEDA Non-VA provider not authorized to write for prescription(s) thru [place] pharmacy. Prescription request(s) [facility] for [facility]: eRx Reference #: [id number] eRx Prescription Information: eRx Drug: ezetimibe 10 mg tablet (Zetia) eRx Qty: 90 eRx Refills: 3 eRx Days Supply: eRx Written Date: SEP 28, 2023 eRx Issue Date: Prohibit Renewals: No eRx Sig: Take 1 tablet (10 mg total) by mouth at bedtime. /valarie/ DAVION CAVANAUGH CLINICAL SPLICER MACHINE OPERATOR Signed: 09/28/2023 11:53 DAVION CAVANAUGH [facility]
--- OUTSIDE RECORDS SUMMARY | 2023-10-08 12:30 | XMS_ITS | Encounter Summary ---
Author Name [place] Address [address] [place] [address] Care Team Providers Care Chimney Builder Helper Name Role Phone JI DUMONT Primary Care [...] Ochoa's Name Patient's Relationship to Policy Ochoa [facility] (R) MEDICARE [facility] ([facility]) Mar 12, 2015 [id number] BARRY GONZALEZ [facility] ([facility]) MEDICARE ADVANTAGE [facility] Mar 12, 2015 [id number] [phone] BARRY GONZALEZ [facility] (WNR) MEDICARE ADVANTAGE [facility] (WNR) Mar 12, 2015 [id number] [phone] JUSTYNAPAMELABARRY PATEL PATIENT [place] RETIREE PLATI NUM BLUE COMPL E Mar 12, 2016 [id number] LISABARRY BLUE SHIELD [facility] (WN) MEDICARE ADVANTAGE [facility] ([facility]) Mar 12, 2015 [id number] BARRY GONZALEZ PATIENT MEDICARE (WNR) MEDICARE (M) PART A Mar 12, 2000 PART A [id number] BARRY GONZALEZ PATIENT Selected Encounter This section includes the information on record at [place] for the Encounter. Date/Time Encounter Type Encounter Description Reason Pro vider Source Oct 02, 2023 12:23 PM Outpatient Encounter COMMUNITY CARE CONSULT IHE [...] of theEncounter. The data comes from all [place] treatment facilities. Test Date/Time Test Type Test Details Facility Name Aug 27, 2023 10:00 AM Laboratory - Chemi stry Order ALBUMIN/CREATININE RATIO URINE URINE WC ONCE [facility] Aug 27, 2023 10:00 AM Laboratory - Chemi stry Order HEMOGLOBIN A1C BLOOD WC [facility] Social History: Smoking Status (Most [...] 2023 10:45 AM VA-TOBACCO FORMER USER [facility] Tobacco Use History This section includes a history of the smoking, or tobacco-related health factors, that were collected on or before the date of the Encounter. The data comes from the [place] facility where the Encounter took place. Date/Time Smoking Status/Tobacco Use Comment F acility Jan 17, 2023 10:45 AM [place]-TOBACCO QUIT [address] [facility] Feb 01, 2022 10:15 AM MO-TOBACCO FORMER USER [facility] Feb 01, 2022 10:15 AM VA-TOBACCO QUIT [address] [facility] Sep 28, 2020 03:20 PM VA-TOBACCO FORMER USER [facility] Sep 28, 2020 03:20 PM VA-TOBACCO QUIT [address] [facility] Dec 25, 2019 10:30 AM VA-TOBACCO FORMER USER [facility] Dec 25, 2019 10:30 AM VA-TOBACCO QUIT [address] [facility] Feb 21, 2018 11:12 AM VA-TOBACCO FORMER USER [facility] Feb 21, 2018 11:12 AM VA-TOBACCO QUIT [address] [facility] August 08, 2017 11:28 AM FORMER TOBACCO USER 7Y OR GREATE R [facility] Aug 22, 2016 07:47 AM FORMER TOBACCO USER 7Y OR GREATE R [facility] Aug 23, 2015 09:50 AM FORMER TOBACCO USER 7Y OR GREATE R [facility] Aug 13, 2014 08:34 AM LIFETIME NON-TOBACCO USER [facility] Aug 11, 2013 07:48 AM LIFETIME NON-TOBACCO USER [facility] Advance Directives: All historical and current Section Date Range: From patient's date of to the date document was created. This section includes ALL of a patient's completed or amended [place] Advance and Rescinded Directives. The entries below indicate that a directive exists for the patient, but an actual copy is not included with this document. The data comes from all [place] facilities. Date Advance Directives Provider Source Aug 13, 2014 ADVANCE DIRECTIVE JOSAFATVANDANASUN GARCIA [facility] Aug 13, 2014 ADVANCE DIRECTIVE DISCUSSION GINDiyaSHAHRIARN [facility] May 06, 2007 ADVANCE DIRECTIVE MAYITO PIERRE [facility] Encounter Notes: All associated encounter notes This section contains the clinical notes associated to the Encounter. Date/Time Encounter Note(s) Provider Source Oct 02, 2023 12:23 PM PHARMACY NOTE: LOCAL TITLE: PHARMACY NON VA CARE MEDICATIONS STANDARD TITLE: PHARMACY NOTE DATE OF NOTE: OCT 02, 2023@12:23 ENTRY DATE: OCT 02, 2023@12:23:35 AUTHOR: KELSI CAMPBELL COSIGNER: URGENCY: STATUS: COMPLETED [facility] RECEIVED electronic prescription(s) (eRX(s))from NON- VA Provider: IRISH ESQUEDA Date eRX received: Sep The outside (NON-VA) provider is not authorized to write for prescription(s) through [place] pharmacy at this time. Prescription request REDIRECTED via FAX to [facility] department eRx Reference #: [id number] eRx Prescription Information: eRx Drug: magnesium 250 mg (as magnesium oxide) tablet (Mag-Ox) eRx Qty: 30 eRx Refills: 0 eRx Days Supply: eRx Written Date: OCT 02, 2023 eRx Issue Date: Prohibit Renewals: No eRx Sig: Take 1 tablet (250 mg total) by mouth daily. /valarie/ KELSI CAMPBELL Pharmacist Signed: 10/02/2023 12:23 KELSI CAMPBELL [facility]
--- OUTSIDE RECORDS SUMMARY | 2023-10-08 12:31 | XMS_ITS | Encounter Summary ---
Author Name [place] Address [address] [place] [address] Care Team Providers Care Roll Over Loader Name Role Phone JULIA JI Primary Care [...] Name Patient's Relationship to Policy Ochoa [facility] (R) MEDICARE ADVANTAGE [facility] ([facility]) Mar 12, 2015 [id number] [phone] ADILSON GONZALEZ [facility] (R) MEDICARE ADVANTAGE [facility] ([facility]) Mar 12, 2015 [id number] [phone] LISAADILSON [facility] ([facility]) MEDICARE ADVANTAGE [facility] Mar 12, 2015 [id number] [phone] LISA ADILSON PATIENT [place] RETIREE PLATI NUM BLUE COMPL E Mar 12, 2016 [id number] [phone] ADILSON GONZALEZ JENNIFFER BLUE [facility] (WNR) MEDICARE ADVANTAGE [facility] (WNR) Mar 12, 2015 [id number] ADILSON GONZALEZ PATIENT MEDICARE (WNR) MEDICARE (M) PART A Mar 12, 2000 PART A [id number] ADILSON GONZALEZ PATIENT Selected Encounter This section includes the information on record at [place] for the Encounter. Date/Time Encounter Type Encounter Description Reason Provider Source Oct 04, 2023 11:29 AM Outpatient Encounter PRIMARY CARE/MEDICINE SHEYLA MOHAMUD Encounter Template Text not used by [place] Plan of Treatment: Future Appointments (+ 6 months) and Future Tests (+/- 45 days) The Plan of Treatment section includes future care [facility] for the [facility] [place] [facility] This section includes future appointments [...] of theEncounter. The data comes from all [place] treatment facilities. Test Date/Time Test Type Test Details Facility Name Aug 27, 2023 10:00 AM Laboratory - Chemi stry Order ALBUMIN/CREATININE RATIO URINE URINE WC ONCE [facility] Aug 27, 2023 10:00 AM Laboratory - Chemi stry Order HEMOGLOBIN A1C BLOOD [facility] Social History: Smoking Status (Most current) and Tobacco Use (All prior to encounter date) This section includes the most current, and the historical, smoking and tobacco- related health factors from the [place] facility where the Encounter took place. Current Smoking Status This section includes the most current smoking, or tobacco-related health factor, from the [place] facility where the Encounter took place. Date/Time Current Smoking Status Comment Facil ity Jan 17, 2023 10:45 AM VA-TOBACCO FORMER USER [facility] Tobacco Use History This section includes a history of the smoking, or tobacco-related health factors, that were collected on or before the date of the Encounter. The data comes from the [place] facility where the Encounter took place. Date/Time Smoking Status/Tobacco Use Comment F acility Jan 17, 2023 10:45 AM AL-TOBACCO QUIT 15 YRS OR MORE [facility] Feb 01, 2022 10:15 AM VA-TOBACCO FORMER USER [facility] Feb 01, 2022 10:15 AM VA-TOBACCO QUIT 15 YRS OR MORE [facility] Sep 28, 2020 03:20 PM VA-TOBACCO FORMER USER [facility] Sep 28, 2020 03:20 PM VA-TOBACCO QUIT 15 YRS OR MORE [facility] Dec 25, 2019 10:30 AM VA-TOBACCO FORMER USER [facility] Dec 25, 2019 10:30 AM VA-TOBACCO QUIT 15 YRS OR MORE [facility] Feb 21, 2018 11:12 AM VA-TOBACCO FORMER USER [facility] Feb 21, 2018 11:12 AM VA-TOBACCO QUIT 15 YRS OR MORE [facility] August 08, 2017 11:28 AM FORMER TOBACCO USER 7Y OR GREATE R [facility] Aug 22, 2016 07:47 AM FORMER TOBACCO USER 7Y OR GREATE R [facility] Aug 23, 2015 09:50 AM FORMER TOBACCO USER 7Y OR GREATE R [facility] Aug 13, 2014 08:34 AM LIFETIME NON-TOBACCO USER [facility] Aug 11, 2013 07:48 AM LIFETIME NON-TOBACCO USER [facility] Advance Directives: All historical and current Section Date Range: From patient's date of to the date document was created. This section includes ALL of a patient's completed or amended [place] Advance and Rescinded Directives. The entries below indicate that a directive exists for the patient, but an actual copy is not included with this document. The data comes from all [place] facilities. Date Advance Directives Provider Source Aug 13, 2014 ADVANCE DIRECTIVE VANDANA MAURICE [facility] Aug 13, 2014 ADVANCE DIRECTIVE DISCUSSION VANDANA MAURICE [facility] May 06, 2007 ADVANCE DIRECTIVE MAYITO PIERRE S [facility] Encounter Notes: All associated encounter notes This section contains the clinical notes associated to the Encounter. Date/Time Encounter Note(s) Provider Source Oct 08, 2023 10:55 AM PRIMARY CARE SECUR E MESSAGING: LOCAL TITLE: PRIMARY CARE SECURE MESSAGING STANDARD TITLE: PRIMARY CARE SECURE MESSAGING DATE OF NOTE: OCT 08, 2023@10:55 ENTRY DATE: OCT 08, 2023@10:55:48 AUTHOR: SHEYLA MOHAMUD COSIGNER: URGENCY: STATUS: COMPLETED ------Original Message ---- Sent: 10/06/2023 10:39 PM ET From: ADILSON GONZALEZ To: [facility] Primary CareJulia L. (Janette) Subject: General:General Inquiry About 170ish at 26 units 145-150 at 30. [place] did an A1c & came back at 6.7 last week. ------Original Message ---- Sent: 10/08/2023 11:55 AM ET From: SHEYLA MOHAMUD To: ADILSON GONZALEZ Subject: General:General Inquiry Okay thanks for the information. I will share with Dr. Escobar. Looks like he ordered the glargine 30 Units every day for mail out. Sheridan Mohamud RN [address] [place] [address] Primary Care // SHEYLA MOHAMUD RN REGISTERED NURSE Signed: 10/08/2023 10:55 SHEYLA MOHAMUD [facility] Oct 04, 2023 11:29 AM PRIMARY CARE Re.MuUR E MESSAGING: LOCAL TITLE: PRIMARY CARE SECURE MESSAGING STANDARD TITLE: PRIMARY CARE SECURE MESSAGING DATE OF NOTE: OCT 04, 2023@11:29 ENTRY DATE: OCT 04, 2023@11:29:55 AUTHOR: SHEYLA MOHAMUD EXP COSIGNER: URGENCY: STATUS: COMPLETED ------Original Message ---- Sent: 10/04/2023 12:29 PM ET From: SHEYLA MOHAMUD To: ADILSON GONZALEZ Subject: General:General Inquiry Adilson, The pharmacy reached out to us and shared that you are taking your glargine 30 units per day. When you saw Dr. Escobar this past August, this is what he states in his note: - glargine 20 units daily; increase to 23 units daily. If BG still >150 after 3 days, increase further to 26 units daily. - Will message updated AM BG readings in 1 week via Do you have fasting blood sugar readings from the morning you can share? Sheridan Mohamud RN [address] [place] [address] Primary Care /valarie/ SHEYLA MOHAMUD RN REGISTERED NURSE Signed: 10/04/2023 11:29 SHEYLA MOHAMUD [facility]
--- OUTSIDE RECORDS SUMMARY | 2023-10-08 12:31 | XMS_ITS | Clinical Summary ---
Author Organization [employer] [facility] Address [place], [place] [address] Care Team Providers Care Plastic Surgeon Name Role Phone MarianrolandKristinekalia Nickari Primary Care Provider Allergies Active Allergy Reactions Criticality Noted Date Comments Gabapentin Rash 11/24/2008 Atorvastatin *Unknown,Rash 01/28/2015 Lisinopril Myalgia 09/04/2017 Medications Medication Sig Dispensed Refills Start Date End Date Status diphenhydrAMINE (BENADRYL) 25 mg capsuleIndications :allergic rhinitis,nasal congestion Take 25 mg by mouth at bedtime if needed. Indications: inflammation of the nose due to an allergy, stuffy nose Active ezetimibe (ZETIA) 10 mg tablet Take 10 mg by mouth at bedtime. Active insulin glargine (LANTUS SOLOSTAR PEN) 100 unit/mL (3 mL) solution for injection Inject 32 units subcutaneous 2 times daily. Active nitroglycerin (NITROSTAT) 0.[address] 0.4 mg under the tongue every 5 minutes if needed for Chest Pain. Active metFORMIN (GLUCOPHAGE) 500 mg tablet Take 500 mg by mouth 2 times daily with meals. Active pregabalin (LYRICA) 75 mg capsule Take 75 mg by mouth every morning. Active semaglutide 0.25 mg or 0.5 mg(2 mg/1.5 mL) pnij Inject 0.5 mg subcutaneous once weekly. Active rivaroxaban (XARELTO) 10 mg tablet Take 10 mg by mouth once daily. Active diclofenac topical (VOLTAREN) 1 % gel Apply 2 g topically to affected area(s) 3 times daily if needed. 07/31/2019 Active famotidine (PEPCID) 20 mg tablet Take 1 tablet by mouth 2 times daily. 09/25/2019 Active isosorbide mononitrate (IMDUR) 30 mg extended release tablet 24 Hour Take 1 tablet by mouth once daily. 07/31/2019 Active pramipexole (MIRAPEX) 0.25 mg tablet Take 2 tablets by mouth at bedtime. 08/09/2017 Active bepadndg-kol-ecmno us sulfate (One Daily Multi-Vit w-Mineral) 4.5 mg iron pwpk Mix 1 Tablet in liquid then take by mouth once daily. 03/18/2020 Active pantoprazole (PROTONIX) 40 mg delayed-release tablet Take 40 mg by mouth once daily before a meal. 01/07/2020 Active mometasone (NASONEX) (50 mcg each actuation) nasal spray Inhale 2 Sprays into affected nostril(s) once daily if needed (allergies). 04/10/2017 Active albuterol HFA (PRO-AIR; VENTOLIN; PROVENTIL) 90 mcg/actuation inhaler Inhale 2 Puffs by mouth 4 times daily if needed (shortness of breath). 10/22/2019 Active tamsulosin (FLOMAX) 0.4 mg capsule Take 0.4 mg by mouth once daily after a meal. 03/23/2020 Active fexofenadine (Shell Allergy) 180 mg tablet Take 180 mg by mouth once daily with a meal. Do not crush or chew. Active lidocaine 4 % cream Apply topically to affected area(s) 3 times daily if needed (elbow and knee pain). Active pregabalin (LYRICA) 75 mg capsule Take 150 mg by mouth at bedtime. Active acetaminophen (TYLENOL EXTRA STRGTH) 500 mg tabletIndications: Total knee replacement status, left Take 2 Tablets (1,000 mg) by mouth every 6 hours. Max acetaminophen dose: 4000mg in 24 hrs. 200 Tablet 07/13/2020 Active sennosides-docusat e, 8.6-50 mg, (SENOKOT S) 8.6-50 mg tabletIndications: Total knee replacement status, left Take 1-3 Tablets by mouth 2 times daily. 100 Tablet 07/13/2020 Active WalkerIndications: Total knee replacement status, left Walker with front wheels for home use. 1 Device 07/13/2020 Active hydrOXYzine pamoate (VISTARIL) 25 mg capsule Take 1 capsule (25 mg total) by mouth every 6 (six) hours as needed for anxiety. 30 Capsule 07/19/2020 Active oxyCODONE (ROXICODONE) 5 mg immediate release tablet Take 1 Tablet (5 mg) by mouth every 6 hours if needed for pain. 30 Tablet 07/27/2020 Active Active Problems Problem Noted Date Diagnosed Date Total knee replacement status, left 07/12/2020 Adjustment disorder with depressed mood 09/09/19 20 Overview: No comments entered for problem. Benign essential hypertension 09/09/2019 Overview: No comments entered for problem. Hypomagnesemia 09/09/2019 Overview: No comments entered for problem. Localized osteoarthrosis, lower leg 09/09/2019 Overview: No comments entered for problem. Low back pain 09/09/2019 Overview: No comments entered for problem. Other ill-defined and unknow n causes of morbidity and mortality 09/09/2019 Overview: Jun 27, 2011 Entered By: MARILEE PANTOJA Comment: Due to elevated CPK of 950 06/21, unable to increase statinApr 2011 Entered By: MARILEE PANTOJA Comment: [facility] Entered By: MARILEE PANTOJA Comment: Xience drug-eluting stent 05/2011. Cardiac rehab ordered 06/21Apr 2011 Entered By: MARILEE PANTOJA Comment: 70% mid LAD stenosis per angiogram 05/2011 Other and unspecified alcohol dependence, in rem ission 09/09/2019 Overview: Nov 09, 2004 Entered By: ARGENIS ACE Comment: since 1984 History of other diseases of the circulatory system, not elsewhere classified 09/09/2019 Chronic rhinitis 09/09/2019 Overview: No comments entered for problem. Special screening for other conditions 0 Overview: No comments entered for problem. Tobacco use disorder 09/09/2019 Overview: No comments entered for problem. Carpal tunnel syndrome of left wrist 04/22/2019 Carpal tunnel syndrome of right wrist 04/14/2019 Chronic peripheral venous hypertension 9 Overview: Bilateral lower extremity varicosities with pitting edema. Last Assessment & Plan: He will wear compression on the morning off at night. He was given a knee high edema flow stockings and tubigrips to wear. I am also requesting that he have vascular studies done. I told him I preferred that he have them done at the [facility] in [place] because of their ability to check all the veins in the legs. I told him [facility] do not have the capability. He is requesting to go to [place]. I did call the [place] vascular Department at the [facility] and left a voicemail as I am unable to order this consult on the computer. His last echo showed no evidence of heart failure. His blood pressure is normotensive and he is hemodynamically stable. Basic metabolic panel will be drawn for monitoring his renal function as he would like to increase his torsemide. He will not do that until we get the results of his basic metabolic panel. In a thyroid function panel will be done to rule out any thyroid malady. Edema 11/21/2018 Overview: Bilateral lower extremity edema Last Assessment & Plan: New onset of approximately a week and half to 2 weeks of lower extremity edema. He states that edema is not responsive to compression. His primary care provider had doubled his torsemide within the past couple months. He is wanting to increase the torsemide to 40 mg. A basic metabolic panel will be drawn to determine renal function before he does that. He does have an appointment to see her next Sunday. Diabetic peripheral neuropathy 10/17/2018 History of colonic polyps 10/17/2018 Overview: Nov 25, 2008 Entered By: COLIN BLEVINS Comment: colonoscopy 2007: no polypsAu2004 Entered By: ARGENIS ACE Comment: low grade dysplasia-adenomatous..f/u 2006 Impotence of organic origin 10/17/2018 Overview: No comments entered for problem. Nondependent alcohol abuse, in remission 019 Peripheral venous insufficiency 10/17/2018 Overview: No comments entered for problem. Sleep apnea 10/17/2018 Overview: No comments entered for problem. Supraventricular tachycardia 05/15/2018 Felipe's esophagus 09/13/2017 Overview: Overview: Added automatically from request for surgery [id number] Hyperlipidemia 05/14/2017 Overview: No comments entered for problem. Ventricular premature beats 05/14/2017 Chronic renal insufficiency, stage III (moderate ) 04/18/2017 Overview: No comments entered for problem. 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 Spondylolisthesis, congenital 09/02/2012 Spondylosis of lumbar spine 08/23/2012 Disorder of peripheral nervous system 08/22/2012 Polyradiculopathy 08/22/2012 Dyspnea on exertion 07/31/2012 Paresis of single lower extremity 07/31/2012 Type 2 diabetes mellitus without complication Overview: Diabetes mellitus type II Overview: Type 2 Overview: Type 2 No comments entered for problem. Personal history of other malignant neoplasm of skin 10/30/2007 Acne rosacea 09/30/2007 Telangiectasia disorder 09/30/2007 Squamous cell carcinoma of skin of face 03/25/19 08 Dyslipidemia PE (pulmonary embolism) Diabetes Overview: Type 2 CAD (coronary artery disease) BPH (benign prostatic hyperplasia) Weight loss Encounters Date Type Department Care Team Description 08/13/2023 1:30 PM CDT - 08/13/2023 11:59 PM CDT Hospital Encounter [facility] [address] [place] [address] Joseph Neves DO 08/13/2023 Travel from Last 3 Months Social History Tobacco Use Types Packs/Day Years Used Date Smoking Tobacco: Former Smokeless Tobacco: Never Comments:quit ~1979 Alcohol Use Standard Drinks/Week Comments Not Currently 0 (1 standard drink = 0.6 oz pur e alcohol) Stopped alcohol use 1984 Sex and Gender Information Value Date Recorded Sex Assigned at Not on file Gender Identity Not on file Sexual Orientation Not on file Obstetrics History Last Filed Vital Signs Vital Sign Reading Time Taken Comments Blood Pressure 149/65 08/19/2022 4:49 PM CDT Pulse 86 08/19/2022 4:44 PM CDT Temperature 36.5 ??C (97.7 ??F) 08/19/2022 4:44 PM CD T Respiratory Rate 16 08/19/2022 4:44 PM CDT Oxygen Saturation 95% 08/19/2022 4:44 PM CDT Inhaled Oxygen Concentration - - Weight 98 kg (216 lb) 08/19/2022 4:44 PM CDT Height 177.8 cm (5' 10) 08/19/2022 4:44 PM CDT Body Mass Index 30.99 08/19/2022 4:44 PM CDT Plan of Treatment Health Maintenance Due Date Last Done Comments Tdap 11/24/1955 Depression screening for age 12+ 1956 BMI (ht and wt on same day) for age 18+ 1962 Hepatitis C screening for age 18-79 1962 Tetanus booster 1964 Zoster (shingles) series for age 50+ (1 of 2) 11/23/18 95 Pneumococcal series for age 65+ (1 of 1 - PCV) 010 COVID-19 vaccine series (1 - 2022- season) 3 Influenza for age 65+ 11/11/2023 Medical Devices Implanted Type Area Manager Salt Device Identifier Shelf Expiration Date Model / Serial / Lot Triathlon X3 Tibial Bearing Insert-Cs Implanted:Qty: 1 on 07/12/2020 by Wily Grimm MD at [facility] Left: Knee [employer] 11/30/2024 5531-G-[id number] -[id number] / / [id number] Fem Lt 7 Triathlon Beaded W/Pa - [id number] Implanted:Qty: 1 on 07/12/2020 by Wily Grimm MD at [facility] Left: Knee [employer] 06/09/2025 [id number]-F-[id number] / / [id number] Baseplate Tib Univ Sz 6 Triathlon Keeled Ingrowth Pors Tritan - [id number] Implanted:Qty: 1 on 07/12/2020 by Wily Grimm MD at [facility] Left: Knee [employer] 03/22/2025 [id number] / / [id number] Patella [id number] Triathlon Tritanium Symmetrical Metal Backed - [id number] Implanted:Qty: 1 on 07/12/2020 by Wily Grimm MD at [facility] Left: Knee [employer] 06/02/2025 [id number] / / [id number] Procedures Procedure Name Priority Date/Time Associated Diagnosis Comments CT PELVIS W Routine 08/13/2023 1:57 PM CDT from Last 3 Months Results * CT PELVIS W (08/13/2023 1:57 PM CDT) Anatomical Region Laterality Modality Pelvis, Abdomen, PROSTATE, BLADDER Computed Tomography Joseph Neves DO CT from Last 3 Months Advance Directives Documents on File Type Date Recorded Patient Vacuum Form Operator Expl anation Healthcare Directive 10/11/2015 016 * Full Code (Latest Code Status on File) Date Activated Date Inactivated Comments 07/12/2020 8:05 AM 07/13/2020 3:59 PM Question Answer Comments Code Status Discussion: Per Existing Order * Full Code Date Activated Date Inactivated Comments 07/05/2020 5:46 AM 07/05/2020 9:53 AM Question Answer Comments Code Status Discussion: Per Existing Order * Full Code Date Activated Date Inactivated Comments 02/16/2020 10:02 AM 02/16/2020 1:13 PM Question Answer Comments Code Status Discussion: Not Discussed * Full Code Date Activated Date Inactivated Comments 02/16/2020 7:50 AM 02/16/2020 10:02 AM Question Answer Comments Code Status Discussion: Not Discussed * Full Code Date Activated Date Inactivated Comments 04/24/2019 10:27 AM 04/24/2019 3:46 PM Question Answer Comments Code Status Discussion: Not Discussed Care Teams Plastic Surgeon Relationship Specialty Start Date End Date Joseph Neves DO [address] [place] [address] PCP - General Internal Medicine 01/17/18
--- OUTSIDE RECORDS SUMMARY | 2023-10-08 12:31 | XMS_ITS | Continuity of Care Document ---
Author Organization [facility] Address [address] [place] [address] Phone Care Team Providers Care Liaison Officer Name Role Phone Win Lopez MD Unavailable Unavailable Procedures Procedure Date Office consultation, moderate Advance Directives Directive Yes / No Effective Date File Name No Information Encounters Encounter Description Practice Location Reason(s) For Visit Diagnoses Date Provider Providers Copied on Encounter Office consultation, moderate [facility], [address] [place], [place] [address], [place], [address], [place] tel:[phone] [facility] No Information Jun- 7 Jessica Walden. [facility], [address], [place], [place], [id number] , [place]. tel:[phone] Referring Provider: Kip Girard, [facility] [address], [place], [address]. tel:[phone] Family History Family Member Type Diagnosis Age At Onset No Information Payers Payer name Insurance type Covered libertarian ID Authoriza tiemerson(s) [facility] [id number] Social History Type Description Quantity Date Captured Comments Sex Male Smoking Status No Information Chief Complaint And Reason For Visit No Information Reason For Referral Reason For Referral No Information History Of Present Illness Encounter Date Complaint History Of Prese nt Illness No Information Functional Status Date Functional Assessmen t No Information Instructions Date Instruction Additional Infor mation No Information Assessments Type Assessment Date No Information Patient Care Teams Name Effective Dates (start - stop) Status Members No Information
--- OUTSIDE RECORDS SUMMARY | 2023-10-08 12:31 | XMS_ITS | Data Portability ---
Author Organization [place] [facility] [employer] Address [address] [place] [address] Assessment Encounter Date Assessment Date Assessment LastModified by Organization Details LastModified Time 12/21/2022 12/21/2022 Discussed findings with the patient. We discussed about putting Subiomed devices on his orthotics. We trialled him for Subiomed today and added maggy laterally to tip him back inward. The patient has improved stability with Subiomed use. He would need a functional orthotic on top of his Subio with lateral valgus maggy rearfoot and first ray cut out b/l. He is on Ottobock anterior shell ground reactions AFO. We will consider if do we have to put him in a shoe that is a little bit deeper with Subiomed or hybrid it with the braces. He is going to bring his other braces. He is size 11 1/2 extra wide performance DrMercy Chavez. [email or web address] Not available 12/22/2022 09:37:37 Plan of Treatment Reminders Order Date Submit Date Provider Last Modified By Organization Details Last Modified Time Details Appointments None record ed. Lab None record ed. Referral None record ed. Procedures None record ed. Surgeries None record ed. Imaging XR, foot, 3 or more view 023 12/22/19 [facility], [address] [place] [address] [address] , [place], [address], 09:44:47 Medication Orders None record ed. Patient TargetsNo targets recorded. Patient InstructionsNo instructions recorded. Reason for Referral None Reported. Results Created Date Observation Date Name Description Value Unit Range Abnormal Flag LastModifiedBy Organization Detail LastModifiedTime 12/22/19 XR, foot, 3 or more view No observ ation record ed. [email or web address] [facility] [address], [place], [address], 12/21/2022 10:58:51 Result Notes None recorded. Problems Name Status Onset Date Resolution Date Notes Provider Name and Address Organization Details Recorded Time Diabetic care Active 2022 Last seen ANNETTA Noy[facility] - [facility] 3 10:21:13 Obesity Active 2013 Obesity; Original Code: 278.00 Origi nal Codesystem: ICD-9-CM Cla ssification: Medical Conf irmation Status: Probable Not Available [facility] 3 09:08:24 Tinea pedis Active 2011 Tinea pedis..; Original Code: 110.4 Origin al Codesystem: ICD-9-CM Cla ssification: Medical Conf irmation Status: Confirmed Not Available [facility] 3 09:08:24 Difficulty walking Active 2015 Difficulty walking; Original Code: 4987754602 O riginal Codesystem: SNOMED CT Classific ation: Medical Conf irmation Status: Confirmed Not Available [facility] 3 09:08:24 Hypertrophy of nail Active 2015 Hypertrophy of nail; Original Code: 13309846 Jarad ginal Codesystem: SNOMED CT Classific ation: Medical Conf irmation Status: Confirmed Not Available [facility] 3 09:08:24 Type 2 diabetes mellitus Active 2015 Type 2 diabetes mellitus; Original Code: 037637049 Or iginal Codesystem: SNOMED CT Classific ation: Medical Conf irmation Status: Confirmed Not Available [facility] 3 09:08:24 Type 2 diabetes mellitus without complication Active 2011 Diabetes type II NOS; Original Code: 250.00 Origi nal Codesystem: ICD-9-CM Cla ssification: Medical Conf irmation Status: Confirmed Not Available [facility] 3 09:08:24 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 ; Original Code: 703.8 Origin al Codesystem: ICD-9-CM Cla ssification: Medical Conf irmation Status: Confirmed Not Available [facility] 3 09:08:24 Pure hypercholesterole darryl Active 2013 Hypercholest eremia; Original Code: 272.0 Origin al Codesystem: ICD-9-CM Cla ssification: Medical Conf irmation Status: Confirmed Not Available [facility] 3 09:08:24 Coronary atherosclerosis Active 2013 Coronary Artery Disease; Original Code: 414.00 Origi nal Codesystem: ICD-9-CM Cla ssification: Medical Conf irmation Status: Confirmed Not Available [facility] 3 09:08:24 Acquired hallux rigidus Active 2011 Hallux Rigidus; Original Code: 735.2 Origin al Codesystem: ICD-9-CM Cla ssification: Medical Conf irmation Status: Confirmed Not Available [facility] 3 09:08:24 Problem Notes None recorded. Procedures Surgical History None recorded. Imaging Results Imaging Date Name Status LastModified by Organiz ation Details LastModified Time 12/21/2022 XR, foot, 3 or more view active [email or web address] [facility] [address] , [place], [address], 12/21/2022 10:58:51 Procedure Notes None recorded. Medical Equipment None Reported. Allergies No known drug allergies Medications Name Sig Start Date Stop Date Status Note LastModified by Organization Details LastModified Time cyclobenzaprin e 10 mg tablet TAKE 1/2 TABLET BY MOUTH 3 TIMES A DAY NEEDED FOR 3 DAYS active Not Available Not Available No t Available metoprolol succinate ER 50 mg tablet,extende d release 24 hr TAKE 1 TABLET (50 MG TOTAL) BY MOUTH DAILY. DO NOT CRUSH OR CHEW. active Not Available Not Available No t Available famotidine 20 mg tablet TAKE 2 TABLETS (40 MG TOTAL) BY MOUTH 2 (TWO) TIMES A DAY. REPLACES RANTIDIDI NE. active Not Available Not Available No t Available tamsulosin 0.4 mg capsule TAKE 1 CAPSULE (0.4 MG TOTAL) BY MOUTH 2 (TWO) TIMES A DAY. active Not Available Not Available No t Available diazepam 2 mg tablet TAKE 1 TABLET BY MOUTH 3 TIMES A DAY NEEDED FOR MUSCLE SPASMS FOR UP TO 5 DAYS.- OTHER INS active Not Available Not Available No t Available Vitals Date Recorded Body height Body mass index (BMI) Body weight Provider Name and Address Organization Details Last Updated DateTime 12/21/2022 180.34 cm 29 kg/m2 77012.21 g Viky Bermudez [place] - [facility] 12/21/2022 10:20:31 Social History None recorded. Functional Status None recorded. Mental Status None recorded. Family History Nothing Reported. Medical History No medical history recorded. 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 90192423215651 102 Unsteady when walking 22 397605 Lumbar spondylolisthesis 22696038647658 2 Foot-drop 5070360 Health Concerns Section Related Observation LastModified by Organization Detai ls LastModified Time None Recorded Concern Status LastModified by Organization Details LastModified Time None Recorded Advance Directives Directive None Recorded Payers Encounter Date Sequence Insurance Name Policy Number Policy Ochoa Covered Member ID Ochoa Member ID Guarantor Name 12/21/2022 1 [place] (MEDICARE [place]PLACEMENT PPO) [id number] Adilson Cage [id number] Adilson Cage Notes Date Note Type Note Provider Name and Address Organization Details Recorded Time 12/21/2022 text/html HPI Notes: Patient here presents with AFO for his drop foot due to neuropathy b/l. He was using his AFO b/l for years duration. Merrill Aleman, CHRIS [address] [place], [address], [facility] 12/23/2022 10:50:19
== END 2023-10-08 12:13 | disposition home or self-care (01) ==
PROVIDERS: Visit Provider Internal Medicine
DX: C61 Malignant neoplasm of prostate (principal)
CPT/HCPCS: 72195